=== PATIENT | male | born 1950 | race Caucasian/White ===

== ENCOUNTER 2020-06-05 15:03 | Outpatient (RCR) | payer MEDICARE, OTHER, SELFPAY ==
[2020-06-05] MEDS: COVID-19 VACC, MRNA(PFIZER)/PF 30 MCG/0.3 ML SYRINGE IM (13:43)
[2020-06-26] MEDS: COVID-19 VACC, MRNA(PFIZER)/PF 30 MCG/0.3 ML SYRINGE IM (13:36)
== END 2020-09-02 23:59 ==
LOC: IMMUN 15:03
PROVIDERS: PCP Internal Medicine; Visit Provider Family Medicine
DX: Z23 Encounter for immunization (principal)
CPT/HCPCS: 0001A; 0002A; 91300

== ENCOUNTER 2020-10-10 09:56 | Day surgery (SDC) | payer MEDICARE, OTHER, SELFPAY ==
--- NOTE | 2020-10-06 08:30 | EKG12_ITS ---
Test Reason : PREOP Blood Pressure : / mmHG Vent. Rate : 075 BPM Atrial Rate : 075 BPM P-R Int : 156 ms QRS Dur : 104 ms QT Int : 410 ms P-R-T Axes : 037 -05 -01 degrees QTc Int : 457 ms Normal sinus rhythm Normal ECG Confirmed by NORAH VALENCIA, DALE ([id number]), editor index ADRIA VDIES ([id number]) on 10/07/2020 7:39:39 AM Referred By: Kvng Langford Confirmed By:DALE ALMAZAN MD
[2020-10-06 10:11] LABS: Anion Gap 7 (5-15); BUN 15 mg/dL (7-18); BUN/Creat Ratio 17.8 RATIO (10-20); Calcium,Total 9.4 mg/dL (8.5-10.1); Chloride 99 mmol/L (98-107); Creatinine, Serum 0.84 mg/dL (0.70-1.30); EST Glomerular Filtration Rate 96 mL/min (>60); Est Glom Filt Rate - Afr Amer 116 mL/min (>60); Glucose 144 mg/dL (74-106); Potassium 4.1 mmol/L (3.5-5.1); Sodium Level 135 mmol/L (136-145)
[2020-10-06 10:20] LABS: Hemoglobin A1c 5.9 % (3.8-5.6)
[2020-10-10] VITALS (7 sets, daily range): BP systolic 129–155; BP diastolic 70–91; PULSE 66–70; RESP 16; TEMP 36.1–37.1; O2SAT 91–97; BMI 30.1
[2020-10-10 10:55] LABS: Bedside Glucose 135 mg/dL (70-110)
[2020-10-10] MEDS: Lactated Ringers 1,000 ML 100 ML IV (10:55)
[2020-10-10] MEDS: Cefazolin 2 GM in 0.9% Normal Saline 100 ML IV (11:59)
--- NOTE | 2020-10-10 13:09 | OP.PCM_ITS ---
Problems Associated Problem List Diagnoses (1) Umbilical hernia without obstruction and without gangrene: (2) Right inguinal hernia: Report of Operation Date of Procedure: 10/10/20 Pre-Operative Diagnosis: 1. Right inguinal hernia 2. Umbilical hernia Post-Operative Diagnosis: Same Surgery/Procedure Performed:: 1. Open repair of right inguinal hernia 2. Umbilical hernia repair with mesh Surgeon: Kvng Langford Type of Anesthesia: General Anesthesiologist: Darwin Cooper Drains: none Estimated Blood Loss (mL): < 25 cc Description of Procedure: Patient was brought into the operating room. Placed in the supine position. Under excellent general endotracheal ovation the abdomen and right inguinal area was sterilely prepped and draped in the usual fashion. Local was injected in the right inguinal area incision was made dissection was carried down to the superficial inferior epigastric vessels which were tied off with 0 Vicryl ties. I dissected down to the external bleak fascia I opened the external bleak fascia identified the ilioinguinal nerve placed it laterally dissected down and got around the cord and vessel structures and secured it with a Aziza drain. Patient had a large right inguinal hernia which I detached from the cord and vessel structures as well as a large cord lipoma I placed those back into the preperitoneal space. I placed an extra- large mesh plug into the internal ring. I sutured it circumferentially with interrupted #1 Prolene. After this I placed an onlay piece of mesh 2 sutures of 0 Prolene into the pubic tubercle I ran the one up the ileal inguinal ligament and the other on the transversalis fascia. The keyhole I brought the cord and vessel structures through I then secured the 2 Prolene sutures superior to this. I had enough room to allow my fifth finger in so the blood supply would not be strangulated. I inspected the nerve as it was going out it was tattered and frayed I thought the best thing to do was just transect the ilioinguinal nerve and I did this time get off with the 0 Vicryl tie. I brought the extra oblique fascia back together with 2-0 Vicryl. I injected local Bryan's was brought together with 2-0 Vicryl deep dermals of 3-0 Vicryl in a running 4-0 Monocryl. Curvilinear incision was made under the umbilicus after local was injected. I dissected down detach the skin from the umbilical defect placed the umbilical defect back into its preperitoneal space circumferentially cleared this off. I placed a small Ventralex patch into this area. I secured the mesh with interrupted #1 Nurolon's. I injected local. Wound was then brought together with deep dermal stitches of 3-0 Vicryl in a running 4 Monocryl. Steri-Strips were applied sterile dressings were applied and the patient tolerated the procedure well. Steri-Strips were applied sterile dressings were applied and the inguinal area and the patient tolerated this well. Admit VTE Documentation VTE Present on Admission: No VTE Mechan Device Prophylaxis: SCD's VTE Pharm Prophylaxis ordered?: No Reason prophylaxis not ordered:: Treatment Not Indicated
--- NOTE | 2020-10-10 13:09 | PCM.HP.BLA ---
History and Physical Date of Admission: 10/10/20 HISTORY AND PHYSICAL ? Mikaela Yang 1950 ? ? REFERRING PHYSICIAN: Davion Lanier MD ? CHIEF COMPLAINT: Consult (Hernia ) ? HPI: Mikaela is a 69 year old male with a complaint of a bulge and discomfort in his right inguinal region and umbilical region. The patient notes discomfort in this area with lifting, straining and coughing. The symptoms have increased, over the past few months. ? The patient notes no symptoms of bowel obstruction and denies nausea or vomiting. The patient was seen by his primary care physician who felt the patient has a hernia. Mikaela was referred for evaluation and treatment. ? The patient is being seen by me today at the request of Dr. Davion Lanier MD for my opinion and advice regarding Inguinal hernia of right side with obstruction and without gangrene Umbilical hernia without obstruction and without gangrene (primary encounter diagnosis). ? ? PAST MEDICAL HISTORY PAST MEDICAL HISTORY Diagnosis Date ? Adenomatous colon polyp 12/04/2014 ? Chronic pain of left ankle 01/17/2017 ? Depression 11/28/2014 ? Diabetes mellitus type 2, controlled, without complications (HCC) 04/04/2015 ? Essential hypertension 08/11/2005 ? Generalized anxiety disorder 10/28/2014 ? Impaired fasting glucose 03/04/2010 ? Office hypertension (white coat syndrome) 02/10/2016 ? Panic disorder without agoraphobia 05/05/2012 ? PURE HYPERCHOLESTEROLEM 06/20/2007 ? Rhinitis, allergic 08/29/2009 ? Unspecified essential hypertension ? ? ? PAST SURGICAL HISTORY PAST SURGICAL HISTORY Procedure Laterality Date ? ARTHRODESIS; TRIPLE Left 01/29/2019 ? Left foot, Post. tibial tendon repair. Achilles tendon lengthening. Calcaneal bone graft. ? COLONOSCOP W/ OR W/O [facility] SPEC ? 12/04/2014 ? Colonoscopy ? COLONOSCOP W/ OR W/O [facility] SPEC ? 03/13/2018 ? repeat 5 years ? PAST SURGICAL HISTORY OF ? ? ? wisdom teeth ? VASECTOMY ? CURRENT MEDICATIONS Current Outpatient Medications Medication Sig ? ALPRAZolam (XANAX) 1 mg tablet Take 1 tablet by mouth at bedtime as needed for anxiety for up to 180 days. ? escitalopram oxalate (LEXAPRO) 20 mg tablet Take 1 tablet by mouth once daily. ? amLODIPine (NORVASC) 5 mg tablet Take 1 tablet by mouth once daily. ? atenolol (TENORMIN) 50 mg tablet Take 1 tablet by mouth twice daily. ? atorvastatin (LIPITOR) 20 mg tablet Take 1 tablet by mouth daily at bedtime. For cholesterol. ? olopatadine (PATANOL) 0.1 % ophthalmic solution 1 Drop. Apply one(1) drop in both eyes twice a day as needed for allergies. ? lisinopril-hydrochlorothiazide (PRINZIDE,ZESTORETIC) 20-12.5 mg per tablet Take 2 tablets by mouth once daily. ? metFORMIN ER (GLUCOPHAGE XR) 500 mg 24 hr tablet Take 1 tablet by mouth daily with breakfast. For diabetes. ? cetirizine (ZYRTEC) 10 mg tablet Take 1 tablet by mouth once daily. ? No current facility-administered medications for this visit. ? ? ALLERGIES: Contrast Dye and Seasonal Allergies [Other] ? PERSONAL HISTORY: SOCIAL HISTORY Social History ? Tobacco Use ? Smoking status: Former Smoker ? ? Packs/day: 1.00 ? ? Years: 12.00 ? ? Pack years: 12.00 ? ? Types: Cigarettes ? ? Quit date: 03/28/1982 ? ? Years since quittin.5 ? Smokeless tobacco: Current User ? ? Types: Snuff, Chew ? Tobacco comment: 1 ppd, Quit cigarrettes 1982. Snuff since then, 1 can every 2 days. Vaping Use ? Vaping Use: Never used Substance Use Topics ? Alcohol use: Yes ? ? Alcohol/week: 30.0 standard drinks ? ? Types: 12 Cans of Beer (12oz) per week ? ? Comment: 2-3 beers per day 12 oz. ? Drug use: No ? FAMILY HISTORY: FAMILY HISTORY FAMILY HISTORY Problem Relation Age of Onset ? Heart Mother ? ? congenital HD, age 91 ? Arthritis Father ? ? rheumatoid ? Coronary Artery Disease Father ? ? age 69 ? Hypertension Sister ? ? Colon Cancer Other ? ? nephew ? ? REVIEW OF SYMPTOMS: The review of systems data was entered by the nurse and reviewed by me ? Nursing Notes: Leeroy Briones 09/22/2020 11:21 AM Signed REVIEW OF SYSTEMS: General: The patient NOTES fatigue, denies weight loss, denies weight gain, denies feeling hot, and denies feelings of cold. Eyes: The patient denies glaucoma, denies eye injury/surgery, wears glasses or contacts. Ear/Nose/Throat: The patient NOTES allergies, NOTES hayfever, denies ear infections, and denies bloody noses. Cardiovascular: The patient denies chest pain, denies heart disease, NOTES high blood pressure,denies cardiac stent, denies prior heart attack, denies irregular heart beat, NOTES high cholesterol, NOTES poor circulation, denies heart failure, other cardiac issues, denies claudication, denies cold feet, denies peripheral arterial stent. Respiratory: The patient denies tuberculosis, denies pneumonia, denies frequent cough, denies pulmonary embolism, denies shortness of breath, and denies coughing up blood. Gastrointestinal: The patient denies difficulty swallowing, denies acid reflux, denies ulcers, denies vomiting, denies jaundice/hepatitis, denies gallbladder problems, denies black or tarry stools, denies hemorrhoids, denies bleeding from rectum, denies diverticulitis, denies constipation, denies diarrhea, denies loss of stool control, and NOTES hernias. Kidney/Bladder: The patient denies kidney stones, denies urine infections, and denies bloody urine. Skin: The patient denies a history of skin cancer, denies bleeding/changing moles, and denies a history of skin rash. Neurologic: The patient denies a history of epilepsy/convulsions, denies headaches, denies head/spinal injuries, and denies stroke/TIA. Psychiatric: The patient denies psychiatric medications, NOTES depression, and denies voices, denies substance abuse. Endocrine: The patient denies thyroid disorders, NOTES diabetes, and denies hormonal problems. Hematologic: The patient NOTES a history of bruising, denies bleeding, and denies anemia, denies blood clots. Infections: The patient denies a history of measles and mumps, denies rheumatic fever, and denies sexually transmitted diseases. Musculoskeletal: The patient denies back pain/injury, denies back problems, denies sciatica, NOTES knee/foot trouble, NOTES arthritis, or denies gout. ? ? When was patient's last Mammogram screening? N/A ? Last Colonoscopy: 03-13-2018 ? Leeroy Briones ? PHYSICAL EXAMINATION: ? General: The patient is 69 year old male, well nourished, well hydrated in no acute distress. The patient is oriented to time, place, and person. ? VITALS: Blood pressure 134/72, pulse 86, temperature 37.1 ?C (98.8 ?F), height 184.2 cm (6' 0.5), weight 103.1 kg (227 lb 3.2 oz), SpO2 100 %. Body mass index is 30.39 kg/m?. ? HEENT: Normal cephalic, ataumatic, pupils are equally round, sclera are anicteric, mucous membranes are moist, oropharynx is clear. Neck has no masses, asymmetry or lymphadenopathy. Thyroid is unremarkable. ? Respiratory: Clear to auscultation and percussion. Normal respiratory excursion and pattern. ? Cardiac: Examination is regular rate and rhythm. ? Abdominal exam: Soft, nontender, with no palpable masses. No hepatosplenomegaly. A large, reducible right inguinal hernia, no left inguinal or umbilical hernias are noted and small umbilical hernia ? Rectal exam: exam deferred ? Extremities: no clubbing, cyanosis or edema. No adenopathy. ? Other: ? ? LABORATORY VALUES: As Noted ? RADIOLOGIC STUDIES: As Noted ? Assessment IMPRESSION: right inguinal hernia, umbilical hernia ? PLAN: My plan is to perform a open right inguinal hernia repair with mesh as well as umbilical hernia repair with mesh. The planned surgical procedure was discussed extensively with the patient. The risks, benefits, anticipated outcomes and possible complications were mentioned. Mikaela undersands that all hernia repair surgery has a chance of recurrence and/or chronic post operative pain. My staff has also explained the procedure in understandable terms and the patient was given the option to take printed material concerning the planned procedure. The patient had the opportunity to ask questions concerning the planned procedure. The patient freely consents to the planned procedure. ? My findings have been communicated to Dr. Davion Lanier MD via shared medical record. This note will be forwarded to Dr. Davion Lanier MD. ? Diagnoses: (K42.9) Umbilical hernia without obstruction and without gangrene (primary encounter diagnosis) (K40.30) Inguinal hernia of right side with obstruction and without gangrene ? Anticipated CPT Code: open right inguinal hernia repair with mesh - 05158-794 umbilical hernia repair - with mesh, no add on - 77044-700 ? Anticipated Anesthetic: General ? Patient weight: Blood pressure 134/72, pulse 86, temperature 37.1 ?C (98.8 ?F), height 184.2 cm (6' 0.5), weight 103.1 kg (227 lb 3.2 oz), SpO2 100 %. BMI: Body mass index is 30.39 kg/m?. ? Planned antibiotic: Ancef 2gm IVPB messenger floorperson to OR ? SCDs needed - Yes Return to Clinic: The patient is instructed to follow-up with me 1 week post operatively. ? COVID (Procedure Consent) Procedure Criteria ? Procedure Criteria: Yes Elective The surgeon/proceduralist and patient have discussed in detail the risk of exposure to and/or potential harm posed by the COVID-19 virus with having a surgery/procedure at this time versus the risk of? delaying the surgery/procedure. It is not possible to know either the risk of delaying the surgery or procedure or chance of getting an infection with perfect accuracy, but a joint decision was made between the patient and the surgeon/proceduralist ?to proceed at this time with the scheduled surgery/procedure as indicated on the consent form. ? ? Kvng Langford III, MD I have re-examined the patient. There are no clinical changes since date of exam.
--- NOTE | 2020-10-10 13:16 | DCINST_ITS ---
Discharge Instructions Procedure Hernia Diet Discharge Diet: Light diet - advance as tolerated Activity Discharge Activity: Return to Normal Activity, May Drive (when you are no longer taking narcotic pain medications.) and May Shower (with the bandage in place 1-2 days after surgery.) Lifting Restrictions: 20 pounds for 8 weeks. Additional Activity Instructions:: Climbing stairs is fine, walking is e ncouraged. Sitting in bed may be uncomfortable. Sitting up using your lateral muscles (sitting up sideways) is usually more comfortable. Do not drive, work heavy equipment of sign legal documents for 24 hours. If your hernia repair was an ingunial repair, you may have scrotal swelling, an ice pack and/or athletic support can provide more comfort. Pain medications may cause nausea, you should typically eat light foods as you take your pain medications. Pain medications may also cause constipation. If you have difficulty with this, discuss with your doctor. Dressing / Incision Call your doctor if your incision/area has: Continuous Slow Oozing, Sudden Increased Bleeding, Increased Pain/ Swelling, Increased Redness and Foul Smelling Discharge Call your doctor if you observe: Fever of 101 or Higher Suture Line Care: Avoid Pulling/Pushing and Avoid Pinching/Bending Additional Dressing/Incision Instructions:: Leave the operative bandage on for 2-3 days. When you remove the bandage, leave the steri-strips on place until your follow up appointment or they fall off. Follow Up Care Please Follow Up With: Mouna Stanley PA-C When: Call office to schedule an appointment to be seen in 7 days. Test Results: Test results from this visit will be discussed in further detail at your follow-up appointment, if applicable. Discharge Plan Admission Attending Provider: Kvng Langford Primary Care Provider: Davion Lanier Discharge Orders/Prescriptions Prescriptions: New oxycodone-acetaminophen [Percocet] 5-325 mg tablet 1 tab PO Q6H PRN (Reason: pain) 5 Days Qty: 30 RF: 0 Continued metformin 500 mg Tablet 500 mg PO DAILY RF: 0 atorvastatin [Lipitor] 20 mg Tablet 20 mg PO QHS RF: 0 lisinopril-hydrochlorothiazide 20-12.5 mg Tablet 2 tab PO DAILY MDD bp RF: 0 alprazolam [Xanax] 1 mg Tablet 1 mg PO QHS PRN PRN (Reason: Anxiety) RF: 0 amlodipine [Norvasc] 5 mg Tablet 5 mg PO LUNCH RF: 0 atenolol [Tenormin] 50 mg Tablet 50 mg PO BID RF: 0 escitalopram oxalate [Lexapro] 10 mg Tablet 10 mg PO LUNCH RF: 0 Referrals / Follow Up: Davion Lanier MD [Primary Care Provider] - Disposition Discharge Orders: Discharge Patient (Routine); Ordered 10/10/20 Ordered By: Dr. Kvng Langford
[2020-10-10] MEDS: Bupivacaine Mpf 0.5% 30 ML VIAL (13:34)
[2020-10-10 14:21] LABS: Bedside Glucose 115 mg/dL (70-110)
== END 2020-10-10 15:18 ==
LOC: SDC 09:56 → AC 09:57
PROVIDERS: Anesthesiology; PCP Internal Medicine; Referring Provider Surgery; Visit Provider Surgery
PROC: (CPT 49505; principal; 2020-10-10 11:45)
DX: K40.30 Unilateral inguinal hernia, with obstruction, without gangrene, not specified as recurrent (principal); K42.9 Umbilical hernia without obstruction or gangrene; I10 Essential (primary) hypertension; E78.00 Pure hypercholesterolemia, unspecified; F32.9 Major depressive disorder, single episode, unspecified; F41.1 Generalized anxiety disorder; F41.0 Panic disorder [episodic paroxysmal anxiety]; Z79.899 Other long term (current) drug therapy; Z79.84 Long term (current) use of oral hypoglycemic drugs; R73.01 Impaired fasting glucose; Z87.891 Personal history of nicotine dependence
CPT/HCPCS: 49505; 49585; 36415; 80048; 82962; 83036; 93005; J7120; C1781; J2405

== ENCOUNTER 2021-10-04 21:29 | Inpatient (IN) | payer MEDICARE, OTHER, SELFPAY ==
[2021-10-04 21:30] VITALS: BP 123/54; PULSE 98; RESP 18; TEMP 37.4; O2SAT 99; BMI 30.2
--- NOTE | 2021-10-04 22:07 | EKG12_ITS ---
Test Reason : Blood Pressure : / mmHG Vent. Rate : 089 BPM Atrial Rate : 089 BPM P-R Int : 150 ms QRS Dur : 102 ms QT Int : 380 ms P-R-T Axes : 031 004 -25 degrees QTc Int : 462 ms Normal sinus rhythm Inferior infarct , age undetermined Abnormal ECG Confirmed by NORAH VALENCIA, DALE ([id number]), index editor ADRIA VIDES ([id number]) on 10/06/2021 8:43:31 AM Referred By: Kenn Confirmed By:DALE ALMAZAN MD
--- NOTE | 2021-10-04 22:20 | EX.ED.DYSGE1 ---
HPI History of Present Illness Chief Complaint: Wound Informant: patient and spouse/S.O. Narrative Narrative: Presents for evaluation of worsening cellulitis left upper extremity. Noted initial blister after working outside, there is other lesions, symptoms progressing. Reported there was milky discharge initially. He was on a 5-day antibiotic course initially 3 days ago started on Bactrim for 10 days. Symptoms not improving. Today noted fever fatigue and aches. No cough. No urinary symptoms. He is a diabetic on metformin. Reported concerns of a spider bite however no visualized spiders. States was referred to surgery Dr. Alston to be call tomorrow. Patient had a fever 100.4 today. Prior similar symptoms: No PFSH PFSH Medical History Alcohol use Anxiety Arthritis Diabetes Easy bruising Former smoker High cholesterol History of stress test Hypertension Wears glasses Home Medications alprazolam 1 mg tablet (Xanax) 1 mg PO QHS PRN PRN Anxiety 10/03/20 [History Last Taken 10/03/21] amlodipine 5 mg tablet (Norvasc) 5 mg PO LUNCH bp 10/03/20 [History Last Taken 10/05/21] atenolol 50 mg tablet (Tenormin) 50 mg PO BID bp 10/03/20 [History Last Taken 10/04/21] atorvastatin 20 mg tablet (Lipitor) 20 mg PO QHS cholesterol 10/03/20 [History Last Taken 10/03/21] escitalopram oxalate 10 mg tablet (Lexapro) 30 mg PO LUNCH mood 10/03/20 [History Last Taken 10/04/21] lisinopril 20 mg-hydrochlorothiazide 12.5 mg tablet 2 tab PO DAILY bp 10/03/20 [History Last Taken 10/04/21] metformin 500 mg tablet 500 mg PO DAILY dm 10/03/20 [History Last Taken 10/04/21] cetirizine 10 mg tablet 10 mg PO DAILY allergies 10/04/21 [History Last Taken 10/04/21] sulfamethoxazole 800 mg-trimethoprim 160 mg tablet 1 tab PO DAILY cellulitis 10/04/21 [History Last Taken 10/04/21] Allergy/AdvReac Type Severity Reaction Status Date / Time Iodinated Contrast Media Allergy Hives Verified 10/04/21 21:33 Family History Other Diabetes Heart disease Hypertension Surgical History History of ankle surgery History of colonoscopy History of wisdom tooth extraction Social History Smoking Status: Former smoker ROS ROS ED Constitutional Constitutional ED: Reports fever(s); Denies chills or sweats Eyes Eyes: Denies change in vision ENT ENT ED: Denies dysphagia or sore throat Cardiovascular Cardiovascular: Denies chest pain, leg edema, palpitations or racing heartbeat Respiratory/Chest Respiratory/Chest: Denies cough, dyspnea or dyspnea on exertion Gastrointestinal Gastrointestinal: Denies abdominal pain, diarrhea, nausea or vomiting Genitourinary Genitourinary ED: Denies dysuria, hematuria or urinary frequency Musculoskeletal Musculoskeletal: Denies back pain, extremity pain or neck pain Integumentary Reports rash and wounds Neurologic Neurologic: Denies headache(s), paresthesias or weakness EXAM Physical Exam Const Vital Signs: 10/04/21 21:30 10/04/21 22:24 10/04/21 22:45 Temperature 99.4 F H 99.1 F Temperature Source Oral Temporal Pulse Rate 98 80 Respiratory Rate 18 18 Blood Pressure 123/54 H 101/63 Blood Pressure Mean 77 75 Pulse Ox 99 94 Oxygen Delivery Method Room Air Room Air Room Air Positive well nourished and well developed General Appearance ED: well developed and NAD HEENT Reports moist mucous membranes normocephalic and atraumatic Eyes PERRL, EOMs intact bilaterally and conjunctivae normal General Eye ED: Yes normal appearance of both eyes Neck no lymphadenopathy and supple General: Negative for tenderness Chest Wall Chest: Negative for tenderness Resp normal respiratory effort and normal air movement Effort and Inspection: symmetric chest movement; Negative for respiratory distress Cardio regular rate, regular rhythm and no murmurs Peripheral Pulses: pulses 2+ throughout GI normal to inspection, nondistended, normoactive bowel sounds and non-tender Palpation: Negative for guarding or rebound tenderness present Back/Spine no CVA tenderness and no thoracic nor lumbar tenderness Extremity normal to inspection General Extremety ED: Negative for edema or tenderness General Extremity: Negative for edema Neuro oriented x3 and no sensory deficits noted Sensorium / Orientation: awake and alert Skin Skin Narrative: Left upper extremity: There is a 2 cm circular lesion with hard scabbing in the middle, there is no fluctuance or induration. There is surrounding erythema to the shoulder region extending to the trapezius. There is no crepitus. No active drainage. Warm to palpation. MDM MDM MDM Narrative Medical decision making narrative: PatientPatient initial pulse 98 temp 99.4. Left shoulder region cellulitis treatment. Reported temp 100.4 today. Sepsis labs were obtained. X-ray left shoulder 2 views reviewed by myself and read by radiology shows no acute process. Area was outlined by myself. Labs White count 5.5. Lactic acid 2.5. Creatinine 1.23 up from 0.84. He has no vomiting diarrhea however is currently on Bactrim. Hemoglobin 9.1 no old for comparison he is told he had iron deficiency in the past. Sodium 131. Patient was treated with Zosyn and vancomycin. Patient failing outpatient therapy with no improvement of symptoms. He is diabetic. Discussed with hospitalist, Dr. Barr for admission. COVID testing also obtained negative. 03/31 SIRS with HR. Lab Data Attestation: I reviewed the patient's lab results. Labs: Laboratory Results - last 24 hr 10/04/21 10/04/21 10/04/21 22:15 22:15 22:15 WBC 5.5 RBC 2.70 L Hgb 9.1 L Hct 27.0 L MCV 100.0 H MCH 33.7 H MCHC 33.7 RDW Std Deviation 61.4 H RDW Coeff of Ricardo 16.8 H Plt Count 160 MPV 9.4 Immature Gran % (Auto) 0.200 Neut % (Auto) 28.4 L Lymph % (Auto) 59.7 H Keith % (Auto) 9.7 Eos % (Auto) 1.3 Baso % (Auto) 0.7 Absolute Neuts (auto) 1.6 L Absolute Lymphs (auto) 3.27 Nucleated RBC % 0 Differential Comment SCANNED PT 13.9 INR 1.1 APTT 28.2 Sodium 131 L Potassium 4.1 Chloride 97 L Carbon Dioxide 22.0 Anion Gap 12 BUN 23 H Creatinine 1.23 Estim Creat Clear Calc 59.58 Est GFR (MDRD) Af Amer 74 Est GFR (MDRD) Non-Af 62 BUN/Creatinine Ratio 18.7 Glucose 124 H Lactic Acid Calcium 8.8 Total Bilirubin 0.60 AST 21 ALT 23 Alkaline Phosphatase 83 Total Protein 6.5 Albumin 3.5 Globulin 3.0 Albumin/Globulin Ratio 1.2 10/04/21 22:15 WBC RBC Hgb Hct MCV MCH MCHC RDW Std Deviation RDW Coeff of Ricardo Plt Count MPV Immature Gran % (Auto) Neut % (Auto) Lymph % (Auto) Keith % (Auto) Eos % (Auto) Baso % (Auto) Absolute Neuts (auto) Absolute Lymphs (auto) Nucleated RBC % Differential Comment PT INR APTT Sodium Potassium Chloride Carbon Dioxide Anion Gap BUN Creatinine Estim Creat Clear Calc Est GFR (MDRD) Af Amer Est GFR (MDRD) Non-Af BUN/Creatinine Ratio Glucose Lactic Acid 2.5 H* Calcium Total Bilirubin AST ALT Alkaline Phosphatase Total Protein Albumin Globulin Albumin/Globulin Ratio Radiography Diagnostic Testing: Clinical Impression(s) from Imaging Studies Shoulder X-Ray 10/04/21 23:06 IMPRESSION: No acute findings. Electronically Signed: Khanh Cardenas DO at 23:24 EDT , EKG Initial EKG: Attestation: I personally reviewed and interpreted this EKG as follows: Comments: Sinus rate of 89, no ST changes, T wave inversion in leads III and aVF. Discharge Plan Dx/Rx/DC Orders Clinical Impression: Cellulitis of left shoulder, Diabetes, Acidosis, lactic, Anemia, Acute hyponatremia Disposition Disposition: Acute Care Hospital [facility] Discharge Date/Time: 10/05/21 00:05
[2021-10-04 22:29] LABS: Absolute Lymphocyte Count 3.27 X10^3/uL (0.83-4.51); Absolute Neutrophil Count 1.6 X10^3/uL (2.0-7.7); Basophil# 0.04 X10^3/uL; Basophil% 0.7 % (0-1); Eosinophil# 0.07 X10^3/uL; Eosinophils% 1.3 % (0-5); Hemoglobin 9.1 g/dL (13.0-16.5); Lymphocyte # 3.27 X10^3/ul (0.83-4.51); Lymphocyte % 59.7 % (19-41); Mean Corp Hgb Conc 33.7 g/dL (32-36); Mean Corpuscular Hgb 33.7 pg (27.0-32.0); Mean Platelet Vol. 9.4 fl (6.2-12.0); Monocyte# 0.53 X10^3/uL; Monocyte% 9.7 % (0-10); NRBC Flagged by Analyzer 0 % (0-5); Neutrophil # 1.56 X10^3/uL (2.7-7.7); Neutrophil % 28.4 % (47-70); POSITIVE MORPHOLOGY YES; Platelet Count 160 K/mm3 (150-450); RBC Distribution Width CV 16.8 % (11.6-14.6); RBC Distribution Width SD 61.4 fl (35.1-43.9); White Blood Count 5.5 K/mm3 (4.4-11.0)
[2021-10-04 22:35] LABS: Differential Indicated SCAN CRITERIA MET
[2021-10-04 22:36] LABS: International Normalized Ratio 1.1; Partial Thromboplast Time 28.2 Seconds (24.1-36.2); Prothrombin Time (Protime)PT. 13.9 SECONDS (11.7-14.9)
[2021-10-04 22:42] LABS: ALB/GLOB Ratio 1.2 RATIO (0.9-2.4); AST(SGOT) 21 U/L (15-37); Alanine Aminotransfer ALT/SGPT 23 U/L (16-61); Albumin, Serum 3.5 g/dL (3.2-5.0); Alkaline Phosphatase 83 U/L (45-117); Anion Gap 12 (5-15); BUN 23 mg/dL (7-18); BUN/Creat Ratio 18.7 RATIO (10-20); Calcium,Total 8.8 mg/dL (8.5-10.1); Chloride 97 mmol/L (98-107); Creatinine, Serum 1.23 mg/dL (0.70-1.30); EST Glomerular Filtration Rate 62 mL/min (>60); Est Glom Filt Rate - Afr Amer 74 mL/min (>60); Estimated Creatinine Clearance 59.58 ml/min; Glucose 124 mg/dL (74-106); Potassium 4.1 mmol/L (3.5-5.1); Protein, Total 6.5 g/dL (6.4-8.2); Sodium Level 131 mmol/L (136-145)
[2021-10-04] MEDS: 0.9% Normal Saline 1,000 ML 150 ML IV (22:44)
[2021-10-04 22:45] VITALS: BP 101/63; PULSE 80; RESP 18; TEMP 37.3; O2SAT 94
[2021-10-04 22:55] LABS: Lactic Acid 2.5 mmol/L (0.4-1.9)
--- NOTE | 2021-10-04 23:06 | RAD_ITS ---
STUDY: X-RAY - LEFT SHOULDER REASON FOR EXAM: Male, 71 years old. infection TECHNIQUE: 4 view(s) of the shoulder. COMPARISON: None. FINDINGS: There is mild degenerative arthrosis of the glenohumeral articulation. There is degenerative arthrosis of the acromioclavicular joint without inferior osseous spur formation. Normal acromion. Normal humeral head and visualized proximal humerus. The soft tissue structures are unremarkable. Normal visualized pulmonary apex. RAD/Shoulder min 2 Views IMPRESSION: No acute findings. Electronically Signed: Khanh Cardenas DO at 23:24 EDT ,
[2021-10-04 23:19] LABS: Differential Comment SCANNED
[2021-10-04 23:43] VITALS: BP 133/98; PULSE 84; RESP 18; TEMP 36.6
--- NOTE | 2021-10-04 23:43 | HP.PCM.HOS_ITS ---
[facility] - General General Date of Admission: 10/04/21 Date of Service: 10/04/21 Chief Complaint: Redness of left arm HPI Narrative CHARLOTTE WHITT, is a 71 M with a significant history of arthritis; depression/anxiety on Lexapro; and diabetes mellitus who presents to the emergency department with redness of his left medial forearm. Reportedly his symptoms started close to 3 weeks ago. His symptoms started with a big blister and then multiple blisters around the medial side of his forearm. The blister oozed out yellowish exudates. Later on he developed redness around the medial side of his left arm. He reports swelling and pain around the area. Patient completed a 5-day course of some antibiotics that he cannot remember the name. Three days before presentation patient was started on Bactrim. He reports fever and chills. On day of presentation his home temperature was 100.4 Fahrenheit. He reports joints pain. He reports fatigue and anorexia. [facility] Medical History Alcohol use Anxiety Arthritis Diabetes Easy bruising Former smoker High cholesterol History of stress test Hypertension Wears glasses Home Medications alprazolam 1 mg tablet (Xanax) 1 mg PO QHS PRN PRN Anxiety 10/03/20 [History Last Taken Unknown] amlodipine 5 mg tablet (Norvasc) 5 mg PO LUNCH bp 10/03/20 [History Last Taken 10/10/20] atenolol 50 mg tablet (Tenormin) 50 mg PO BID bp 10/03/20 [History Last Taken 10/10/20] atorvastatin 20 mg tablet (Lipitor) 20 mg PO QHS cholesterol 10/03/20 [History Last Taken Unknown] escitalopram oxalate 10 mg tablet (Lexapro) 30 mg PO LUNCH mood 10/03/20 [His tory Last Taken Unknown] lisinopril 20 mg-hydrochlorothiazide 12.5 mg tablet 2 tab PO DAILY bp 10/03/20 [History Last Taken Unknown] metformin 500 mg tablet 500 mg PO DAILY 10/03/20 [History Last Taken Unknown] cetirizine 10 mg tablet 10 mg PO DAILY 10/04/21 [History Last Taken Unknown] sulfamethoxazole 800 mg-trimethoprim 160 mg tablet 1 tab PO DAILY 10/04/21 [History Last Taken Unknown] Allergy/AdvReac Type Severity Reaction Status Date / Time Iodinated Contrast Media Allergy Hives Verified 10/04/21 21:33 Family History Other Diabetes Heart disease Hypertension Surgical History History of ankle surgery History of colonoscopy History of wisdom tooth extraction Social History Smoking Status: Former smoker ROS ROS Narrative Pertinent positives and pertinent negatives as noted in HPI. All other systems were reviewed and are negative. Vital Signs Vital Signs Vital Signs: 10/04/21 21:30 10/04/21 22:24 10/04/21 22:45 Temperature 99.4 F H 99.1 F Temperature Source Oral Temporal Pulse Rate 98 80 Respiratory Rate 18 18 Blood Pressure 123/54 H 101/63 Blood Pressure Mean 77 75 Pulse Ox 99 94 Oxygen Delivery Method Room Air Room Air Room Air Weight Weight: 101.151 kg Body Mass Index (BMI) 30.2 Physical Exam Narrative Physical exam: General: Well-nourished, well-developed. Head: Normocephalic, atraumatic, no tenderness Eyes: Vision is grossly intact. EOMI ENT, no trauma, moist mucous membranes, no rhinorrhea Neck: Nontender, full range of motion, no spinal tenderness, deformities, step- off CVS: Regular rate and rhythm. S1-S2 present. No murmur, gallop or rub. Respiratory : clear to auscultation bilaterally, chest wall nontender, no wheezing Abdomen: Soft, nontender, nondistended, normal bowel sounds, no masses : Deferred Back: Nontender, no CVA tenderness, no midline spinal tenderness, deformities, step-offs Extremities: Nontender full range of motion, no trauma Skin: Scabbed area at medial side of left. Mild erythema; swelling and increased warmth at medial side of left. Right arm with no erythema or swelling. Neuro: Alert, oriented, cranial nerves II through XII grossly intact. Psychiatry: Normal mood. Normal affect. Not depressed. Not anxious. Results Lab / Micro Data Result Diagrams: 10/04/21 22:15 10/04/21 22:15 Labs: Laboratory Results - last 24 hr 10/04/21 22:15: WBC 5.5, RBC 2.70 L, Hgb 9.1 L, Hct 27.0 L, MCV 100.0 H, MCH 33.7 H, MCHC 33.7, RDW Std Deviation 61.4 H, RDW Coeff of Ricardo 16.8 H, Plt Count 160, MPV 9.4, Immature Gran % (Auto) 0.200, Neut % (Auto) 28.4 L, Lymph % (Auto) 59.7 H, [place] % (Auto) 9.7, Eos % (Auto) 1.3, Baso % (Auto) 0.7, Absolute Neuts (auto) 1.6 L, Absolute Lymphs (auto) 3.27, Nucleated RBC % 0, Differential Comment SCANNED 10/04/21 22:15: PT 13.9, INR 1.1, APTT 28.2 10/04/21 22:15: Sodium 131 L, Potassium 4.1, Chloride 97 L, Carbon Dioxide 22.0, Anion Gap 12, BUN 23 H, Creatinine 1.23, Estim Creat Clear Calc 59.58, Est GFR (MDRD) Af Amer 74, Est GFR (MDRD) Non-Af 62, BUN/Creatinine Ratio 18.7, Glucose 124 H, Calcium 8.8, Total Bilirubin 0.60, AST 21, ALT 23, Alkaline Phosphatase 83, Total Protein 6.5, Albumin 3.5, Globulin 3.0, Albumin/Globulin Ratio 1.2 10/04/21 22:15: Lactic Acid 2.5 H* Micro: Microbiology 10/04/21 22:45 Nasal Secretion SARS-CoV-2 & FLU Antigen (Rapid) - Final Radiology Impression Shoulder X-Ray 10/04/21 23:06 IMPRESSION: No acute findings. Electronically Signed: Khanh Cardenas DO at 23:24 EDT , Assessment & Plan Assessment/Plan (1) Cellulitis: (2) Diabetes: (3) Hypertension: PLAN: Plan Cellulitis Review of labs showed white count of 5.5. Trend CBC Shoulder X-ray was visualized and independently interpreted. I agree with radiologist interpretation of no acute findings. qSOFA is 0 and patient does not have 2 SIRS criteria. Lactic acid is 2.5 likely from metformin use; or tissue hypoxia. Trend. Sepsis ruled out. Received vancomycin emergency department. While vancomycin was running patient felt he was to be getting better with it. Vancomycin continued. Due to concern for possible insect bite will add doxycycline. Anemia Hemoglobin on presentation was 9.1 Review of community records shows that on 06/15/2021 his hemoglobin was 12.8; and on 04/21/2021 hemoglobin was 13. Trend CBC. Iron panel ordered. Vitamin B12 and folic acid ordered. LDH and haptoglobin ordered. Occult stools ordered. Hypertension Blood pressure is not within goal Amlodipine; atenolol; and Lisinopril-HCTZ continued. Trend blood pressure and adjust blood pressure medications. Diabetes mellitus A1c on 06/15/2021 was 6.2. Blood glucose is stable Hold home metformin Monitor Accu-Cheks Correction scale insulin ordered. DVT prophylaxis Subcutaneous Lovenox ordered. Charges/Coding Visit Charges Inpatient E&M: 58564 Init Hosp L3
[2021-10-05] VITALS (7 sets, daily range): BP systolic 107–127; BP diastolic 53–67; PULSE 78–94; RESP 16–18; TEMP 37–38; O2SAT 94–100; BMI 30.8
[2021-10-05] MEDS: ALPRAZolam 0.5 MG Tablet 1 MG PO ×2 (01:25→21:51)
--- NOTE | 2021-10-05 01:36 | PCM.RX.CS ---
Consult Pharmacy has been consulted to manage selected antiobiotic: Vancomycin Type of Consult: New start Suspected Infection: Skin/Soft tissue Prior Doses of Antibiotics Received/Current Regimen: Medications Vancomycin HCl 1,250 mg/ (Sodium Chloride) 275 mls @ 167 mls/hr IV Q12H ANGELI Discontinued Medications Vancomycin HCl 1,500 mg/ (Sodium Chloride) 530 mls @ 250 mls/hr IV X1 ONE Stop: 10/05/21 00:14 Last Admin: 10/04/21 22:44 Dose: 250 mls/hr Labs: Sodium 131 mmol/L (136-145) L 10/04/21 22:15 Potassium 4.1 mmol/L (3.5-5.1) 10/04/21 22:15 Chloride 97 mmol/L (98-107) L 10/04/21 22:15 Carbon Dioxide 22.0 mmol/L (21.0-32.0) 10/04/21 22:15 Anion Gap 12 (5-15) 10/04/21 22:15 BUN 23 mg/dL (7-18) H 10/04/21 22:15 Creatinine 1.23 mg/dL (0.70-1.30) 10/04/21 22:15 Est GFR (MDRD) Af Amer 74 mL/min (>60) 10/04/21 22:15 Est GFR (MDRD) Non-Af 62 mL/min (>60) 10/04/21 22:15 BUN/Creatinine Ratio 18.7 RATIO (10-20) 10/04/21 22:15 Glucose 124 mg/dL (74-106) H 10/04/21 22:15 Microbiology: Microbiology 10/04/21 22:45 Nasal Secretion SARS-CoV-2 & FLU Antigen (Rapid) - Final Weight used for dosin.1 kg Estimated Creatinine Clearance: 59.6 Goal Trough: 15-20 mcg/mL Pharmacy Plan for Drug Dosing: Pharmacy Service will continue to monitor and adjust dosing as required. Follow-Up Labs: Trough Vancomycin Labs to be done on [date and time ordered]: 10/06/21 @1000
[2021-10-05 02:22] LABS: Reflex Lactate? Y
[2021-10-05 03:47] LABS: Absolute Lymphocyte Count 3.42 X10^3/uL (0.83-4.51); Absolute Neutrophil Count 1.3 X10^3/uL (2.0-7.7); Basophil# 0.03 X10^3/uL; Basophil% 0.6 % (0-1); Eosinophil# 0.07 X10^3/uL; Eosinophils% 1.4 % (0-5); Hematocrit 27.1 % (40-54); Hemoglobin 9.3 g/dL (13.0-16.5); Lymphocyte # 3.42 X10^3/ul (0.83-4.51); Lymphocyte % 67.7 % (19-41); Mean Corp Hgb Conc 34.3 g/dL (32-36); Mean Corpuscular Hgb 34.4 pg (27.0-32.0); Mean Corpuscular Volume 100.4 fL (80-94); Mean Platelet Vol. 9.2 fl (6.2-12.0); Monocyte# 0.27 X10^3/uL; Monocyte% 5.3 % (0-10); NRBC Flagged by Analyzer 0 % (0-5); Neutrophil # 1.25 X10^3/uL (2.7-7.7); Neutrophil % 24.8 % (47-70); POSITIVE MORPHOLOGY YES; Platelet Count 148 K/mm3 (150-450); RBC Distribution Width CV 16.8 % (11.6-14.6); RET-HE 35.1 pg (30-35); Reticulocyte Count 2.57 % (0.5-1.5); White Blood Count 5.1 K/mm3 (4.4-11.0)
[2021-10-05 03:56] LABS: Lactic Acid 1.5 mmol/L (0.4-1.9)
[2021-10-05 03:57] LABS: Differential Indicated SCAN CRITERIA MET
[2021-10-05 04:07] LABS: Anion Gap 8 (5-15); BUN 21 mg/dL (7-18); BUN/Creat Ratio 19.1 RATIO (10-20); Calcium,Total 8.7 mg/dL (8.5-10.1); Chloride 97 mmol/L (98-107); EST Glomerular Filtration Rate 70 mL/min (>60); Est Glom Filt Rate - Afr Amer 85 mL/min (>60); Estimated Creatinine Clearance 66.63 ml/min; Ferritin 129 ng/mL (26-388); Glucose 117 mg/dL (74-106); Iron 91 ug/dL (65-175); Iron Binding Capacity,Total 353 ug/dL (250-450); PERCENT IRON SATURATION 25.8 % (15.0-55.0); Potassium 4.3 mmol/L (3.5-5.1); Sodium Level 130 mmol/L (136-145)
[2021-10-05 04:12] LABS: Differential Comment SCANNED
[2021-10-05 04:56] LABS: Bedside Glucose 107 mg/dL (74-106)
[2021-10-05] MEDS: Acetaminophen 325 MG Tablet 650 MG PO ×2 (04:57→21:51)
--- NOTE | 2021-10-05 07:28 | PCM.PN.HOSP ---
Subjective Subjective Patient is a 71-year-old male who presents with swelling involving the left bicep. Patient reported spider bite 3 weeks prior to his admission Objective Data Objective Data Vital Signs: Vital Signs Temp Pulse Resp BP Pulse Ox O2 Del Method 100.0 F H 94 18 110/66 94 Room Air 10/05/21 06:09 10/05/21 06:09 10/05/21 06:09 10/05/21 06:09 10/05/21 06:09 10/05/21 06:09 Oxygen Delivery Method Room Air Weight: 103.1 kg Body Mass Index (BMI) 30.8 Intake & Output: Intake and Output for Last 24 Hours 10/03/21 10/04/21 10/05/21 23:59 23:59 23:59 Intake Total 50 / 50 1690 / 1690 Balance 50 / 50 1690 / 1690 Lab / Micro Data Result Diagrams: 10/05/21 03:15 10/05/21 03:15 Labs: Laboratory Results - last 24 hr 10/04/21 22:15: WBC 5.5, RBC 2.70 L, Hgb 9.1 L, Hct 27.0 L, MCV 100.0 H, MCH 33.7 H, MCHC 33.7, RDW Std Deviation 61.4 H, RDW Coeff of Ricardo 16.8 H, Plt Count 160, MPV 9.4, Immature Gran % (Auto) 0.200, Neut % (Auto) 28.4 L, Lymph % (Auto) 59.7 H, [place] % (Auto) 9.7, Eos % (Auto) 1.3, Baso % (Auto) 0.7, Absolute Neuts (auto) 1.6 L, Absolute Lymphs (auto) 3.27, Nucleated RBC % 0, Differential Comment SCANNED 10/04/21 22:15: PT 13.9, INR 1.1, APTT 28.2 10/04/21 22:15: Sodium 131 L, Potassium 4.1, Chloride 97 L, Carbon Dioxide 22.0, Anion Gap 12, BUN 23 H, Creatinine 1.23, Estim Creat Clear Calc 59.58, Est GFR (MDRD) Af Amer 74, Est GFR (MDRD) Non-Af 62, BUN/Creatinine Ratio 18.7, Glucose 124 H, Calcium 8.8, Total Bilirubin 0.60, AST 21, ALT 23, Alkaline Phosphatase 83, Total Protein 6.5, Albumin 3.5, Globulin 3.0, Albumin/Globulin Ratio 1.2 10/04/21 22:15: Lactic Acid 2.5 H* 10/05/21 01:37: POC Glucose 107 H 10/05/21 03:15: WBC 5.1, RBC 2.70 L, Hgb 9.3 L, Hct 27.1 L, MCV 100.4 H, MCH 34.4 H, MCHC 34.3, RDW Std Deviation 62.0 H, RDW Coeff of Ricardo 16.8 H, Plt Count 148 L, MPV 9.2, Immature Gran % (Auto) 0.200, Neut % (Auto) 24.8 L, Lymph % (Auto) 67.7 H, [place] % (Auto) 5.3, Eos % (Auto) 1.4, Baso % (Auto) 0.6, Absolute Neuts (auto) 1.3 L, Absolute Lymphs (auto) 3.42, Nucleated RBC % 0, Differential Comment SCANNED, Retic Count 2.57 H, Immature Retic Fraction 17.50 H, Retic Hgb Equivalent 35.1 H 10/05/21 03:15: Sodium 130 L, Potassium 4.3, Chloride 97 L, Carbon Dioxide 25.0, Anion Gap 8, BUN 21 H, Creatinine 1.10, Estim Creat Clear Calc 66.63, Est GFR (MDRD) Af Amer 85, Est GFR (MDRD) Non-Af 70, BUN/Creatinine Ratio 19.1, Glucose 117 H, Calcium 8.7, Iron 91, TIBC 353, Iron Saturation 25.8, Ferritin 129, Folate 5.70 10/05/21 03:15: Lactic Acid 1.5 Micro: Microbiology 10/04/21 22:45 Nasal Secretion SARS-CoV-2 & FLU Antigen (Rapid) - Final Radiography Diagnostic Testing: Radiology Impression Shoulder X-Ray 10/04/21 23:06 IMPRESSION: No acute findings. Electronically Signed: Khanh Cardenas DO at 23:24 EDT , Physical Exam Narrative GENERAL: cooperative HEENT: Atraumatic; EYES; Anicteric, Normal Conjunctiva NECK; supple, normal thyroid, RESPIRATORY: Diminished to auscultation CARDIOVASCULAR: Regular S1 S2, GI: soft, normoactive bowel sounds, : No Renal angle tenderness; EXTREMITIES: Left arm swelling with a 1 cm scab on the medial aspect MUSCULOSKELETAL: no muscle wasting NEURO: Awake; no lateralizing signs. SKIN: Erythema involving the left arm PSYCH; Flat affect Assessment & Plan Assessment/Plan (1) Cellulitis: (2) Diabetes: (3) Hypertension: PLAN: Plan Patient is a 71-year-old male who presents with swelling involving the left bicep. Patient reported spider bite 3 weeks prior to his admission 1. Cellulitis involving the left upper extremity ? Patient has been admitted to regular nursing floor started on broad-spectrum antibiotic therapy (vancomycin and Rocephin) 2. Diabetes mellitus type II -patient's oral hypoglycemics held. Placed on long acting insulin, Accu-Cheks a.c. and at bedtime and covered with sliding scale insulin 3. Hypertension - Blood pressure controlled, home medications continued with dose adjustment as needed 4. Dyslipidemia -Patient is on statin therapy, continued at home dose 5. Anemia - Secondary to chronic disorder monitoring H&H and transfuse if patient becomes symptomatic or hemoglobin falls below 7 6. Class I obesity with BMI of 30.8 ? Weight loss advised 7. DVT prophylaxis ? Enoxaparin Charges/Coding Visit Charges Inpatient E&M: 26659 Subs Hosp L2
[2021-10-05 07:53] LABS: Vitamin B12 372 pg/mL (211-911)
[2021-10-05 09:00] LABS: Bedside Glucose 127 mg/dL (74-106)
[2021-10-05] MEDS: Ceftriaxone 1 GM/50 ML BAG IV (10:03)
[2021-10-05] MEDS: Enoxaparin 40 MG/0.4 ML Syringe SC (10:07)
--- NOTE | 2021-10-05 10:15 | CASEMGMT ---
RN NABILA Face to Face with patient for initial transition planning/care coordination assessment. RN CM introduced self and role at [facility]. Patient lying in bed, alert and oriented. Patient willing to participate in assessment and is able to answer all questions appropriately. Care providers, pharmacy, and demographics verified. Patient wishes to discharge home, denies need for home health at this time. Patient states he has no further needs or concerns at this time. CM to follow for discharge planning needs that may arise. PCP: Yannick Specialists: none Preferred Pharmacy: [facility] Insurance: Arianna AMIN Prescription Benefit: yes Living Will/HPOA: none LNOK: Living Arrangements: Patient lives with in a split level home. Patient states he is independent and able to ambulate stairs. Transportation: self, DME/HHC: Patient states he has grab bars at home. No previous HHC or SNF Disposition Plan: Patient to discharge home with family support and follow-up plans in place. Nini REZA, RN, CM
[2021-10-05] MEDS: Atenolol 50 MG Tablet PO ×2 (10:48→21:51)
[2021-10-05 11:36] LABS: Bedside Glucose 119 mg/dL (74-106)
[2021-10-05] MEDS: Escitalopram Oxalate 10 MG Tablet 30 MG PO (13:17)
[2021-10-05 17:15] LABS: Bedside Glucose 99 mg/dL (74-106)
[2021-10-05] MEDS: Atorvastatin Calcium 20 MG Tablet PO (21:51)
[2021-10-05] MEDS: 0.9% Saline Lock 10 ML Syringe IV (21:53)
[2021-10-05 23:32] LABS: Bedside Glucose 145 mg/dL (74-106)
[2021-10-06 04:37] LABS: Absolute Lymphocyte Count 2.45 X10^3/uL (0.83-4.51); Absolute Neutrophil Count 0.7 X10^3/uL (2.0-7.7); Basophil# 0.02 X10^3/uL; Basophil% 0.6 % (0-1); Eosinophil# 0.11 X10^3/uL; Eosinophils% 3.1 % (0-5); Hemoglobin 8.9 g/dL (13.0-16.5); Lymphocyte # 2.45 X10^3/ul (0.83-4.51); Lymphocyte % 68.4 % (19-41); Mean Corpuscular Hgb 33.3 pg (27.0-32.0); Mean Corpuscular Volume 101.1 fL (80-94); Mean Platelet Vol. 9.6 fl (6.2-12.0); Monocyte# 0.29 X10^3/uL; Monocyte% 8.1 % (0-10); NRBC Flagged by Analyzer 0 % (0-5); Neutrophil % 19.5 % (47-70); POSITIVE DIFFERENTIAL YES; POSITIVE MORPHOLOGY YES; Platelet Count 138 K/mm3 (150-450); RBC Distribution Width CV 16.6 % (11.6-14.6); Red Blood Count 2.67 M/mm3 (4.6-6.2); White Blood Count 3.6 K/mm3 (4.4-11.0)
[2021-10-06 04:40] LABS: Differential Indicated SCAN CRITERIA MET
[2021-10-06 05:02] LABS: Anisocytosis 2+; Macrocytosis 2+
[2021-10-06 05:11] LABS: Anion Gap 8 (5-15); BUN 17 mg/dL (7-18); BUN/Creat Ratio 19.5 RATIO (10-20); Calcium,Total 8.5 mg/dL (8.5-10.1); Chloride 103 mmol/L (98-107); Creatinine, Serum 0.87 mg/dL (0.70-1.30); EST Glomerular Filtration Rate 92 mL/min (>60); Est Glom Filt Rate - Afr Amer 111 mL/min (>60); Estimated Creatinine Clearance 84.24 ml/min; Glucose 103 mg/dL (74-106); Magnesium 2.2 mg/dL (1.6-2.6); Potassium 4.2 mmol/L (3.5-5.1); Sodium Level 135 mmol/L (136-145)
[2021-10-06 06:40] LABS: Bedside Glucose 112 mg/dL (74-106)
--- NOTE | 2021-10-06 07:25 | PCM.PN.HOSP ---
Subjective Subjective Significant decrease in the swelling involving the left patient will be assessed for possible discharge Objective Data Objective Data Vital Signs: Vital Signs Temp Pulse Resp BP Pulse Ox O2 Del Method 100 F H 82 16 127/58 H 99 Room Air 10/05/21 21:00 10/05/21 21:00 10/05/21 21:00 10/05/21 21:00 10/05/21 21:00 10/06/21 00:00 Oxygen Delivery Method Room Air Weight: 103.1 kg Body Mass Index (BMI) 30.8 Intake & Output: Intake and Output for Last 24 Hours 10/04/21 10/05/21 10/06/21 23:59 23:59 23:59 Intake Total 50 / 50 2815 / 3090 275 / 275 Balance 50 / 50 2815 / 3090 275 / 275 Lab / Micro Data Result Diagrams: 10/06/21 03:18 10/06/21 03:18 Labs: Laboratory Results - last 24 hr 10/05/21 03:15: Vitamin B12 372 10/05/21 06:14: POC Glucose 127 H 10/05/21 11:12: POC Glucose 119 H 10/05/21 16:56: POC Glucose 99 10/05/21 21:48: POC Glucose 145 H 10/06/21 03:18: WBC 3.6 L, RBC 2.67 L, Hgb 8.9 L, Hct 27.0 L, MCV 101.1 H, MCH 33.3 H, MCHC 33.0, RDW Std Deviation 61.0 H, RDW Coeff of Ricardo 16.6 H, Plt Count 138 L, MPV 9.6, Immature Gran % (Auto) 0.300, Neut % (Auto) 19.5 L, Lymph % (Auto) 68.4 H, [place] % (Auto) 8.1, Eos % (Auto) 3.1, Baso % (Auto) 0.6, Absolute Neuts (auto) 0.7 L, Absolute Lymphs (auto) 2.45, Nucleated RBC % 0, Anisocytosis 2+, Macrocytosis 2+ 10/06/21 03:18: Sodium 135 L, Potassium 4.2, Chloride 103, Carbon Dioxide 24.0, Anion Gap 8, BUN 17, Creatinine 0.87, Estim Creat Clear Calc 84.24, Est GFR (MDRD) Af Amer 111, Est GFR (MDRD) Non-Af 92, BUN/Creatinine Ratio 19.5, Glucose 103, Calcium 8.5, Magnesium 2.2 10/06/21 06:06: POC Glucose 112 H Micro: Microbiology 10/05/21 07:27 Stool Stool Occult Blood (JESSICA) - Final 10/04/21 22:45 Nasal Secretion SARS-CoV-2 & FLU Antigen (Rapid) - Final Physical Exam Narrative GENERAL: cooperative HEENT: Atraumatic; EYES; Anicteric, Normal Conjunctiva NECK; supple, normal thyroid, RESPIRATORY: Diminished to auscultation CARDIOVASCULAR: Regular S1 S2, GI: soft, normoactive bowel sounds, : No Renal angle tenderness; EXTREMITIES: Left arm swelling with a 1 cm scab on the medial aspect MUSCULOSKELETAL: no muscle wasting NEURO: Awake; no lateralizing signs. SKIN: Erythema involving the left arm PSYCH; Flat affect Assessment & Plan Assessment/Plan (1) Cellulitis: (2) Diabetes: (3) Hypertension: PLAN: Plan Patient is a 71-year-old male who presents with swelling involving the left bicep. Patient reported spider bite 3 weeks prior to his admission 1. Cellulitis involving the left upper extremity ? Patient has been admitted to regular nursing floor started on broad-spectrum antibiotic therapy (vancomycin and Rocephin) 2. Diabetes mellitus type II -patient's oral hypoglycemics held. Placed on long acting insulin, Accu-Cheks a.c. and at bedtime and covered with sliding scale insulin 3. Hypertension - Blood pressure controlled, home medications continued with dose adjustment as needed 4. Dyslipidemia -Patient is on statin therapy, continued at home dose 5. Anemia - Secondary to chronic disorder monitoring H&H and transfuse if patient becomes symptomatic or hemoglobin falls below 7 6. Class I obesity with BMI of 30.8 ? Weight loss advised 7. DVT prophylaxis ? Enoxaparin Charges/Coding Visit Charges Inpatient E&M: 86857 Subs Hosp L2
[2021-10-06 07:30] VITALS: O2SAT 94
[2021-10-06] MEDS: 0.9% Saline Lock 10 ML Syringe IV ×2 (07:55→09:47)
--- NOTE | 2021-10-06 08:37 | PCM.DC.SUM ---
Providers Date of Admission: 10/04/21 Primary Care Physician: Dr. Davion Lanier MD Reason For Visit: CELLULITIS Diagnosis Discharge Diagnosis (1) Cellulitis: Status: Acute Code(s): L03.90 - Cellulitis, unspecified (2) Diabetes: Status: Acute Code(s): E11.9 - Type 2 diabetes mellitus without complications (3) Hypertension: Status: Chronic Code(s): I10 - Essential (primary) hypertension Plan Patient is a 71-year-old male who presents with swelling involving the left bicep. Patient reported spider bite 3 weeks prior to his admission 1. Cellulitis involving the left upper extremity ? Patient has been admitted to regular nursing floor started on broad-spectrum antibiotic therapy (vancomycin and Rocephin) 2. Diabetes mellitus type II -patient's oral hypoglycemics held. Placed on long acting insulin, Accu-Cheks a.c. and at bedtime and covered with sliding scale insulin 3. Hypertension - Blood pressure controlled, home medications continued with dose adjustment as needed 4. Dyslipidemia -Patient is on statin therapy, continued at home dose 5. Anemia - Secondary to chronic disorder monitoring H&H and transfuse if patient becomes symptomatic or hemoglobin falls below 7 6. Class I obesity with BMI of 30.8 ? Weight loss advised 7. DVT prophylaxis ? Enoxaparin Medications at Discharge Home Medications alprazolam 1 mg tablet (Xanax) 1 mg PO QHS PRN PRN Anxiety 10/03/20 amlodipine 5 mg tablet (Norvasc) 5 mg PO LUNCH bp 10/03/20 atenolol 50 mg tablet (Tenormin) 50 mg PO BID bp 10/03/20 atorvastatin 20 mg tablet (Lipitor) 20 mg PO QHS cholesterol 10/03/20 escitalopram oxalate 10 mg tablet (Lexapro) 30 mg PO LUNCH mood 10/03/20 lisinopril 20 mg-hydrochlorothiazide 12.5 mg tablet 2 tab PO DAILY bp 10/03/20 metformin 500 mg tablet 500 mg PO DAILY dm 10/03/20 cetirizine 10 mg tablet 10 mg PO DAILY allergies 10/04/21 doxycycline hyclate 100 mg capsule (Vibramycin) 100 mg PO BID #14 caps 10/06/21 Hospital Course Summary of Care Provided Minutes Spent on Discharge: 35 Hospital Course: Patient is a 71-year-old male who presents with swelling involving the left bicep.? Patient reported spider bite 3 weeks prior to his admission 1.? Cellulitis involving the left upper extremity ? Patient has been admitted to regular nursing floor started on broad-spectrum antibiotic therapy (vancomycin and Rocephin) -Patient did request to be discharged the day after his admission. Was discharged home on doxycycline. Instructed to follow-up with primary care physician within 1 week for follow-up 2.? Diabetes mellitus type II -patient's oral hypoglycemics held. Placed on long acting insulin, Accu-Cheks a.c. and at bedtime and covered with sliding scale insulin 3.? Hypertension - Blood pressure controlled, home medications continued with dose adjustment as needed 4.? Dyslipidemia -Patient is on statin therapy, continued at home dose 5.? Anemia - Secondary to chronic disorder monitoring H&H and transfuse if patient becomes symptomatic or hemoglobin falls below? 7 6.? Class I obesity with BMI of 30.8 ? Weight loss advised 7.? DVT prophylaxis ? Enoxaparin Physical Exam Narrative GENERAL: cooperative HEENT: Atraumatic; EYES; Anicteric, Normal Conjunctiva NECK; supple, normal thyroid, RESPIRATORY: Diminished to auscultation CARDIOVASCULAR: Regular S1 S2, GI: soft, normoactive bowel sounds, : No Renal angle tenderness; EXTREMITIES: Left arm swelling with a 1 cm scab on the medial aspect MUSCULOSKELETAL: no muscle wasting NEURO: Awake; no lateralizing signs. SKIN: Erythema involving the left arm PSYCH; Flat affect Weight / BMI Weight Weight: 103.1 kg Body Mass Index (BMI) 30.8 ABG / Lab / Microbiology Data Result Diagrams: 10/06/21 03:18 10/06/21 03:18 Laboratory: Laboratory Results - last 24 hr 10/05/21 06:14: POC Glucose 127 H 10/05/21 11:12: POC Glucose 119 H 10/05/21 16:56: POC Glucose 99 10/05/21 21:48: POC Glucose 145 H 10/06/21 03:18: WBC 3.6 L, RBC 2.67 L, Hgb 8.9 L, Hct 27.0 L, MCV 101.1 H, MCH 33.3 H, MCHC 33.0, RDW Std Deviation 61.0 H, RDW Coeff of Ricardo 16.6 H, Plt Count 138 L, MPV 9.6, Immature Gran % (Auto) 0.300, Neut % (Auto) 19.5 L, Lymph % (Auto) 68.4 H, [place] % (Auto) 8.1, Eos % (Auto) 3.1, Baso % (Auto) 0.6, Absolute Neuts (auto) 0.7 L, Absolute Lymphs (auto) 2.45, Nucleated RBC % 0, Anisocytosis 2+, Macrocytosis 2+ 10/06/21 03:18: Sodium 135 L, Potassium 4.2, Chloride 103, Carbon Dioxide 24.0, Anion Gap 8, BUN 17, Creatinine 0.87, Estim Creat Clear Calc 84.24, Est GFR (MDRD) Af Amer 111, Est GFR (MDRD) Non-Af 92, BUN/Creatinine Ratio 19.5, Glucose 103, Calcium 8.5, Magnesium 2.2 10/06/21 06:06: POC Glucose 112 H Microbiology: Microbiology 10/05/21 07:27 Stool Stool Occult Blood (JESSICA) - Final 10/04/21 22:45 Nasal Secretion SARS-CoV-2 & FLU Antigen (Rapid) - Final D/C Instructions Discharge Diet: 1800 Calorie Control Diet Discharge Activity: Return to Normal Activity Call your doctor if you observe: Fever of 101 or Higher, Shortness of breath, Fainting spells and Chest pain Meaningful Use Info Meaningful Use Diagnoses (Choose all that apply): None applicable Discharge Plan Admission Admit Date/Time: 10/04/21 23:35 Attending Provider: Beka Nash Primary Care Provider: Davion Lanier Consulting Providers: Aly Barr Discharge Orders/Prescriptions Prescriptions: New doxycycline hyclate [Vibramycin] 100 mg capsule 100 mg PO BID Qty: 14 0RF Continued metformin 500 mg Tablet 500 mg PO DAILY atorvastatin [Lipitor] 20 mg Tablet 20 mg PO QHS lisinopril-hydrochlorothiazide 20-12.5 mg Tablet 2 tab PO DAILY MDD bp alprazolam [Xanax] 1 mg Tablet 1 mg PO QHS PRN PRN (Reason: Anxiety) amlodipine [Norvasc] 5 mg Tablet 5 mg PO LUNCH atenolol [Tenormin] 50 mg Tablet 50 mg PO BID escitalopram oxalate [Lexapro] 10 mg Tablet 30 mg PO LUNCH cetirizine 10 mg Tablet 10 mg PO DAILY Discontinued sulfamethoxazole-trimethoprim 800-160 mg tablet 1 tab PO DAILY Label Comments: TAKE 1 TABLET BY MOUTH TWICE DAILY FOR 10 DAYS. TAKE WITH FOOD Referrals / Follow Up: Davion Lanier MD [Primary Care Provider] - In 1 Week Disposition Disposition (needs filled in before D/C Order can be placed): Home, Self Care Charges/Coding Visit Charges Inpatient E&M: 56945 Disch Hosp
[2021-10-06] MEDS: Loratadine 10 MG Tablet PO (08:50)
[2021-10-06] MEDS: hydroCHLOROthiazide 25 MG Tablet PO (08:50)
[2021-10-06] MEDS: Lisinopril 40 MG Tablet PO (08:50)
[2021-10-06] MEDS: Atenolol 50 MG Tablet PO (08:51)
[2021-10-06] MEDS: Enoxaparin 40 MG/0.4 ML Syringe SC (08:51)
--- NOTE | 2021-10-06 09:38 | CASEMGMT ---
RN CM in to pt room, pt just showered and is up independently in the room. Pt denies homegoing needs.
[2021-10-06] MEDS: Ceftriaxone 1 GM/50 ML BAG IV (09:47)
--- NOTE | 2021-10-06 09:49 | PHA.DC.MC ---
Pharmacy Service has performed discharge medication reconciliation and counseling for this patient. 1. DOXYCYCLINE 100MG PO BID X 7 DAYS The patient's discharge medication list was reviewed for discrepancies and discrepancies were resolved. Home Medications alprazolam 1 mg tablet (Xanax) 1 mg PO QHS PRN PRN Anxiety 10/03/20 amlodipine 5 mg tablet (Norvasc) 5 mg PO LUNCH bp 10/03/20 atenolol 50 mg tablet (Tenormin) 50 mg PO BID bp 10/03/20 atorvastatin 20 mg tablet (Lipitor) 20 mg PO QHS cholesterol 10/03/20 escitalopram oxalate 10 mg tablet (Lexapro) 30 mg PO LUNCH mood 10/03/20 lisinopril 20 mg-hydrochlorothiazide 12.5 mg tablet 2 tab PO DAILY bp 10/03/20 metformin 500 mg tablet 500 mg PO DAILY dm 10/03/20 cetirizine 10 mg tablet 10 mg PO DAILY allergies 10/04/21 doxycycline hyclate 100 mg capsule (Vibramycin) 100 mg PO BID #14 caps 10/06/21 The patient was counseled on the following discharge medications and changes in medications for homegoing were reviewed. The Reason for Use, instructions for use, and potential side effects were reviewed for all new medications. The patient's questions regarding all of their medications were answered. The patient was able to verbally demonstrate an understanding of their discharge medications.
[2021-10-06 10:00] VITALS: BP 104/56; PULSE 86; RESP 18; TEMP 36.7; O2SAT 97
[2021-10-06 10:16] LABS: LDL, Direct 120295 21 mg/dL (0-99)
[2021-10-06 10:35] LABS: Haptoglobin 63 mg/dL (34-355)
[2021-10-06 11:17] LABS: Vancomycin, Trough Level 10.6 ug/mL (5.0-15.0)
[2021-10-06] MEDS: Escitalopram Oxalate 10 MG Tablet 30 MG PO (12:33)
[2021-10-06] MEDS: amLODIPine 5 MG Tablet PO (12:33)
[2021-10-06 12:45] LABS: Bedside Glucose 97 mg/dL (74-106)
== END 2021-10-06 13:19 | disposition home or self-care (01) | DRG 603 ==
LOC: ED 22:11 → MS3 10-05 00:01
PROVIDERS: Admitting Provider Hospitalist; Emergency Provider Emergency Medicine; PCP Internal Medicine; Visit Provider Internal Medicine
DX: L03.114 Cellulitis of left upper limb (principal); E87.2 Acidosis; E87.1 Hypo-osmolality and hyponatremia; E11.9 Type 2 diabetes mellitus without complications; E78.00 Pure hypercholesterolemia, unspecified; D64.9 Anemia, unspecified; I10 Essential (primary) hypertension; E78.5 Hyperlipidemia, unspecified; Z87.891 Personal history of nicotine dependence; Z79.84 Long term (current) use of oral hypoglycemic drugs
CPT/HCPCS: 36415; 73030; 80048; 80053; 80202; 82274; 82607; 82728; 82746; 82962; 83010; 83540; 83550; 83605; 83721; 83735; 85025; 85045; 85610; 85730; 87040; 87428; 93005; 97802; 99285; 99406; J7030; J7040; J7050; A4216

== ENCOUNTER 2022-02-10 15:51 | Inpatient (IN) | payer MEDICARE, OTHER, SELFPAY ==
[2022-02-10 15:55] VITALS: BP 118/64; PULSE 138; RESP 20; TEMP 37.9; O2SAT 98; BMI 28.2
[2022-02-10 16:18] VITALS: BP 102/60; PULSE 138; PULSE 140; RESP 30; RESP 37; TEMP 37.6; O2SAT 98; O2SAT 99
--- NOTE | 2022-02-10 16:24 | EDS_ITS ---
HPI History of Present Illness Chief Complaint: General Illness Informant: patient, spouse/S.O. 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 He had to get monoclonal antibody infusion against COVID for prophylaxis purposes prior to this which he just had, he did not have COVID recently, but it was the reason for why he had to wait on the Rituxan infusion. After the infusion today, while in the infusion center, he developed a fever up to 103, rigors and chills, he had some vomiting. Although symptoms are improving now. He feels thirsty. He received Benadryl as well as hydrocortisone and a dose of IV Zosyn while he was there. The states that they obtain some blood work and cultures she thinks. [facility] Medical History (Updated 02/10/22 @ 19:[address] 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 Wears glasses Home Medications alprazolam 1 mg tablet (Xanax) 1 mg PO QHS PRN Anxiety 10/03/20 [History Last Taken 02/09/22] amlodipine 5 mg tablet (Norvasc) 5 mg PO DAILY BLOOD PRESSURE 10/03/20 [History Last Taken 02/09/22] atenolol 50 mg tablet (Tenormin) 50 mg PO BID BLOOD PRESSURE 10/03/20 [History Last Taken 02/09/22] atorvastatin 20 mg tablet (Lipitor) 20 mg PO QHS cholesterol 10/03/20 [History Last Taken 02/09/22] escitalopram oxalate 10 mg tablet (Lexapro) 30 mg PO DAILY ANXIETY 10/03/20 [History Last Taken 02/09/22] acyclovir 400 mg tablet 400 mg PO BID 02/10/22 [History Last Taken 02/09/22] allopurinol 300 mg tablet 300 mg PO DAILY 02/10/22 [History Last Taken 02/09/22] folic acid 1 mg tablet 1 mg PO DAILY 02/10/22 [History Last Taken 02/09/22] Allergy/AdvReac Type Severity Reaction Status Date / Time Iodinated Contrast Media Allergy Hives Verified 02/10/22 16:00 Family History Other Diabetes Heart disease Hypertension Surgical History History of ankle surgery History of colonoscopy History of wisdom tooth extraction Social History Smoking Status: Former smoker ROS ROS ED Constitutional Constitutional ED: Reports chills, fatigue and fever(s) Eyes Eyes: Denies change in vision or diplopia ENT ENT ED: Denies rhinorrhea or sore throat Cardiovascular Cardiovascular: Denies chest pain or palpitations Respiratory/Chest Respiratory/Chest: Denies cough or dyspnea Gastrointestinal Gastrointestinal: Reports nausea and vomiting; Denies abdominal pain or diarrhea Genitourinary Genitourinary ED: Denies dysuria or hematuria Musculoskeletal Musculoskeletal: Denies back pain or neck pain Integumentary Denies abscess or rash Neurologic Neurologic: Denies headache(s), paresthesias or weakness Psychiatric Psychiatric: Denies anxiety or suicidal thoughts EXAM Physical Exam Const Vital Signs: 02/10/22 15:55 02/10/22 16:18 02/10/22 16:18 Temperature 100.3 F H 99.6 F H Temperature Source Temporal Oral Pulse Rate 138 H 138 H 140 H Respiratory Rate 20 H 37 H 30 H Respiratory Effort Respiratory Pattern Blood Pressure 118/64 102/60 102/60 Blood Pressure Mean 82 74 74 Pulse Ox 98 98 99 Oxygen Delivery Method Room Air Room Air Room Air 02/10/22 16:18 02/10/22 16:45 02/10/22 19:05 Temperature 99.7 F H Temperature Source Oral Pulse Rate 118 H Respiratory Rate 23 H Respiratory Effort Normal Non-Labored Respiratory Pattern Normal Blood Pressure 101/51 L Blood Pressure Mean 67 Pulse Ox 96 93 Oxygen Delivery Method Room Air Room Air Positive well nourished and well developed General Appearance ED: well developed and NAD HEENT Reports moist mucous membranes normocephalic and atraumatic Eyes PERRL and EOMs intact bilaterally Neck full ROM, no lymphadenopathy and supple Resp normal respiratory effort and clear to auscultation bilaterally Cardio regular rate, regular rhythm and no murmurs Rate: tachycardic GI non-tender and non-distended Auscultation: normoactive bowel sounds Palpation: soft Back/Spine no CVA tenderness General Back: other FROM Extremity normal to inspection General Extremety ED: Negative for edema, pulses abnormal or tenderness General Extremity: Negative for edema or pulses abnormal Neuro oriented x3, CN's II-XII intact bilaterally and no sensory deficits noted Sensorium / Orientation: awake and alert Motor Exam: strength 5/5 throughout Skin no rashes or lesions noted and no wounds Sepsis Attestation Sepsis Attestation: Agree w/Sepsis Date exam was performed: 02/10/22 Time exam was performed: 18:00 Possible Source of Sepsis: Unknown Sepsis Organ Dysfunction Criteria Present: SBP < 90 mmHg or MAP < 65 mmHg, Platelets <100,000 / uL, INR > 1.5 or aPTT > 60 sec and Lactic Acid > 2 mmol/L Fluid Resuscitation Fluid resuscitation indicated?: Yes Fluid Resuscitation ordered: 30 ml/kg fluid bolus ordered Sepsis Note Date exam was performed: 02/10/22 Time exam was performed: 19:17 Sepsis Attestation: Sepsis re-evaluation was performed Response to fluids: Fluid responsive hypotension MDM MDM MDM Narrative Medical decision making narrative: Discussed with Dr. Ty who agreed with getting the septic work-up, treating the patient with fluids here, he was given Zofran as well. Prior to being sent here, the patient had Demerol 50 mg total which treats rigors associated with Rituxan, Zosyn, Benadryl, and IV fluids. His lactic acid is 5.3, alarmingly high despite getting IV fluids prior, and his platelets were around 125K this morning, they are 37K now. This is also concerning for sepsis. He does have a history of splenomegaly. His hemoglobin is 7.7, he does not have neutropenia. Does not require blood transfusion at this time, nor does he require platelets since he is not actively bleeding but his INR is at 1.6 which is also concerning. PTT normal. Adding on a fibrinogen, since he is not having any bleeding again does not need emergent transfusion but evaluating for the possibility of DIC. Will cover him with regards to infections and his immunocompromise state with cefepime 2 g and will admit. Pancultured prior to starting the antibiotics. Lab Data Attestation: I reviewed the patient's lab results. Labs: Laboratory Results - last 24 hr 02/10/22 02/10/2202/10/22 16:40 16:40 16:40 WBC 5.5 RBC 2.28 L Hgb 7.7 L Hct 23.1 L MCV 101.3 H MCH 33.8 H MCHC 33.3 RDW Std Deviation 73.7 H RDW Coeff of Ricardo 20.6 H Plt Count 37 L* MPV 9.7 Immature Gran % (Auto) 1.300 H Neut % (Auto) 78.1 H Lymph % (Auto) 14.9 L [place] % (Auto) 4.9 Eos % (Auto) 0.4 Baso % (Auto) 0.4 Absolute Neuts (auto) 4.3 Absolute Lymphs (auto) 0.82 L Nucleated RBC % 0.4 Differential Comment SCANNED Diff Path Review May foll Platelet Estimate MKD DEC Hypochromasia 1+ Anisocytosis 2+ Microcytosis 1+ Macrocytosis 1+ PT 18.8 H INR 1.6 APTT 31.4 Fibrinogen Sodium 134 L Potassium 3.6 Chloride 100 Carbon Dioxide 21.0 Anion Gap 13 BUN 22 H Creatinine 1.23 Estim Creat Clear Calc 59.58 Est GFR (MDRD) Af Amer 74 Est GFR (MDRD) Non-Af 61 BUN/Creatinine Ratio 17.9 Glucose 103 Lactic Acid Calcium 8.6 Total Bilirubin 1.30 H AST 25 ALT 18 Alkaline Phosphatase 78 Total Protein 5.9 L Albumin 3.4 Globulin 2.5 Albumin/Globulin Ratio 1.4 Urine Color Urine Clarity Urine pH Ur Specific [place] Urine Protein Urine Glucose (UA) Urine Ketones Urine Occult Blood Urine Nitrite Urine Bilirubin Urine Urobilinogen Ur Leukocyte Esterase Urine RBC Urine WBC Ur Squamous Epith Cells Urine Bacteria Urine Mucus 02/10/22 02/10/22 02/10/22 16:40 18:05 18:05 WBC RBC Hgb Hct MCV MCH MCHC RDW Std Deviation RDW Coeff of Ricardo Plt Count MPV Immature Gran % (Auto) Neut % (Auto) Lymph % (Auto) [place] % (Auto) Eos % (Auto) Baso % (Auto) Absolute Neuts (auto) Absolute Lymphs (auto) Nucleated RBC % Differential Comment Diff Path Review Platelet Estimate Hypochromasia Anisocytosis Microcytosis Macrocytosis PT INR APTT Fibrinogen 107 L Sodium Potassium Chloride Carbon Dioxide Anion Gap BUN Creatinine Estim Creat Clear Calc Est GFR (MDRD) Af Amer Est GFR (MDRD) Non-Af BUN/Creatinine Ratio Glucose Lactic Acid 5.3 H* Calcium Total Bilirubin AST ALT Alkaline Phosphatase Total Protein Albumin Globulin Albumin/Globulin Ratio Urine Color Yellow Urine Clarity Clear Urine pH 5.0 Ur Specific [place] 1.015 Urine Protein 15 H Urine Glucose (UA) Normal Urine Ketones 5 H Urine Occult Blood Negative Urine Nitrite Negative Urine Bilirubin Negative Urine Urobilinogen 1 H Ur Leukocyte Esterase 25 H Urine RBC 0 SEEN Urine WBC 0-5 SEEN Ur Squamous Epith Cells 0-5 SEEN Urine Bacteria RARE Urine Mucus 0 SEEN Radiography Diagnostic Testing: Clinical Impression(s) from Imaging Studies Chest X-Ray 02/10/22 16:50 IMPRESSION: Normal x-ray examination of the chest. Electronically Signed: Vickey Pearl MD at 17:23 EST , Rhythm Strip Rhythm Strip: Sinus Tach Rate: 140 Ectopy: PVC(s) EKG Initial EKG: Attestation: I personally reviewed and interpreted this EKG as follows: Interpretation: No Acute Injury Pattern and Sinus Tachycardia Prior EKG tracings: available for review Prior: Unchanged Critical Care Time Critical Care Time: Yes Critical care time (excluding procedures): 30-74 minutes (35 min), Including time spent:, Discussing w/Patient &/or Family/Perinatal Social Worker, Discussing w/Consultants, Arranging Admission or Transfer and Performing Direct Patient Care at Bedside Discharge Plan Dx/Rx/DC Orders Clinical Impression: SIRS (systemic inflammatory response syndrome), Acquired immunocompromised state, Splenic marginal zone b-cell lymphoma, Adverse reaction to antineoplastic drug Disposition Disposition: Acute Care [facility]
[2022-02-10] MEDS: Ondansetron 4 MG/2 ML Vial IV (16:42)
[2022-02-10 16:45] VITALS: O2SAT 96
--- NOTE | 2022-02-10 16:50 | RAD_ITS ---
STUDY: X-RAY CHEST REASON FOR EXAM: Male, 71 years old. fever TECHNIQUE: Single frontal view of the chest. COMPARISON: None. FINDINGS: The lungs are clear and expanded. There is no demonstrated pleural abnormality. Normal size heart. Normal mediastinum and jone. Normal visualized pulmonary arteries. Normal visualized aortic arch and descending thoracic aorta. Normal visualized thoracic spine. Normal visualized ribs, clavicles, and shoulders. There is no demonstrated abnormality of the visualized soft tissue structures of the upper abdomen. RAD/Chest 1 View (Portable) IMPRESSION: Normal x-ray examination of the chest. Electronically Signed: Vickey Pearl MD at 17:23 EST ,
[2022-02-10 17:05] LABS: Absolute Lymphocyte Count 0.82 X10^3/uL (0.83-4.51); Absolute Neutrophil Count 4.3 X10^3/uL (2.0-7.7); Basophil# 0.02 X10^3/uL; Basophil% 0.4 % (0-1); Eosinophil# 0.02 X10^3/uL; Eosinophils% 0.4 % (0-5); Hematocrit 23.1 % (40-54); Hemoglobin 7.7 g/dL (13.0-16.5); Lymphocyte # 0.82 X10^3/ul (0.83-4.51); Lymphocyte % 14.9 % (19-41); Mean Corp Hgb Conc 33.3 g/dL (32-36); Mean Corpuscular Hgb 33.8 pg (27.0-32.0); Mean Corpuscular Volume 101.3 fL (80-94); Mean Platelet Vol. 9.7 fl (6.2-12.0); Monocyte# 0.27 X10^3/uL; Monocyte% 4.9 % (0-10); NRBC Flagged by Analyzer 0.4 % (0-5); Neutrophil # 4.31 X10^3/uL (2.7-7.7); Neutrophil % 78.1 % (47-70); POSITIVE COUNT YES; POSITIVE MORPHOLOGY YES; RBC Distribution Width CV 20.6 % (11.6-14.6); RBC Distribution Width SD 73.7 fl (35.1-43.9); Red Blood Count 2.28 M/mm3 (4.6-6.2); White Blood Count 5.5 K/mm3 (4.4-11.0)
[2022-02-10 17:08] LABS: Differential Indicated SCAN CRITERIA MET; Platelet Count 37 K/mm3 (150-450)
[2022-02-10 17:12] LABS: International Normalized Ratio 1.6; Prothrombin Time (Protime)PT. 18.8 SECONDS (11.7-14.9)
[2022-02-10 17:13] LABS: Partial Thromboplast Time 31.4 Seconds (24.1-36.2)
[2022-02-10 17:23] LABS: ALB/GLOB Ratio 1.4 RATIO (0.9-2.4); AST(SGOT) 25 U/L (15-37); Alanine Aminotransfer ALT/SGPT 18 U/L (16-61); Albumin, Serum 3.4 g/dL (3.2-5.0); Alkaline Phosphatase 78 U/L (45-117); Anion Gap 13 (5-15); BUN 22 mg/dL (7-18); BUN/Creat Ratio 17.9 RATIO (10-20); Calcium,Total 8.6 mg/dL (8.5-10.1); Chloride 100 mmol/L (98-107); Creatinine, Serum 1.23 mg/dL (0.70-1.30); EST Glomerular Filtration Rate 61 mL/min (>60); Est Glom Filt Rate - Afr Amer 74 mL/min (>60); Estimated Creatinine Clearance 59.58 ml/min; Globulin 2.5 g/dL (2.2-4.2); Glucose 103 mg/dL (74-106); Potassium 3.6 mmol/L (3.5-5.1); Protein, Total 5.9 g/dL (6.4-8.2); Sodium Level 134 mmol/L (136-145)
[2022-02-10 17:36] LABS: Anisocytosis 2+; Differential Comment SCANNED; Hypochromasia 1+; Macrocytosis 1+; Microcytosis 1+; Platelet Estimate MKD DEC (ADEQ)
[2022-02-10 17:39] LABS: Lactic Acid 5.3 mmol/L (0.4-1.9)
[2022-02-10] MEDS: Acetaminophen 500 MG Tablet 1000 MG PO (17:59)
[2022-02-10] MEDS: 0.9% Normal Saline 1,000 ML 999 ML IV (18:09)
[2022-02-10 18:16] LABS: Mucous, Urine 0 SEEN /hpf (<or=2+); Red Blood Cells-Urine 0 SEEN /hpf (0-5)
[2022-02-10 18:22] LABS: Color, Urine Yellow (Yellow); Glucose, Dipstick Normal (Normal); Ketone-Dipstick 5 mg/dl (Negative); Leukocyte Esterase-Dipstick 25 /ul (Negative); Nitrite-Dipstick Negative (Negative); Occult Blood-Urine Negative /ul (Negative); Protein-Dipstick 15 mg/dl (Negative); Specific Gravity, Urine 1.015 (1.002-1.030); Urine Bilirubin Dipstick Negative (Negative); Urine Clarity Clear (Clear); Urine Urobilinogen 1 mg/dl (Normal)
[2022-02-10 18:32] LABS: Bacteria RARE /hpf (None Seen); Squamous Epithelial Cells - UA 0-5 SEEN /hpf (0-5); White Blood Cells 0-5 SEEN /hpf (0-5)
[2022-02-10 18:34] LABS: Fibrinogen 107 mg/dl (203-444)
[2022-02-10 19:05] VITALS: BP 101/51; PULSE 118; RESP 23; TEMP 37.6; O2SAT 93
--- NOTE | 2022-02-10 19:30 | PCM.HP.STD ---
HPI - General General Date of Admission: 02/10/22 HPI Narrative CHARLOTTE WHITT, is a 71 M who presents to the hospital from his oncologist office secondary to a reaction to Rituxan infusion. He was recently diagnosed with large granular lymphocytic leukemia as well as a low-grade small B-cell lymphoproliferative disorder. Yesterday he was up in [place] to get a COVID antibody infusion and then today had a Rituxan infusion at his oncologist office. He developed shaking and rigors and so was given multiple doses of Demerol and then he developed fever. Fever was noted is not a common part of her Rituxan infusion reactions over toxin infusion reactions are fairly common especially on the first infusion therefore his oncologist felt that it be prudent for him to come to the ER to be worked up for an infection. UA and chest x-ray were unremarkable cultures are pending. He was given multiple fluid boluses as well started on cefepime. Of note his fibrinogen level is low and his PT is elevated so it is possible he is also having a mild DIC. We will just continue to monitor. [facility] Medical History (Updated 02/10/22 @ 19:[address] 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 Wears glasses Home Medications alprazolam 1 mg tablet (Xanax) 1 mg PO QHS PRN Anxiety 10/03/20 [History Last Taken 02/09/22] amlodipine 5 mg tablet (Norvasc) 5 mg PO DAILY BLOOD PRESSURE 10/03/20 [History Last Taken 02/09/22] atenolol 50 mg tablet (Tenormin) 50 mg PO BID BLOOD PRESSURE 10/03/20 [History Last Taken 02/09/22] atorvastatin 20 mg tablet (Lipitor) 20 mg PO QHS cholesterol 10/03/20 [History Last Taken 02/09/22] escitalopram oxalate 10 mg tablet (Lexapro) 30 mg PO DAILY ANXIETY 10/03/20 [History Last Taken 02/09/22] acyclovir 400 mg tablet 400 mg PO BID 02/10/22 [History Last Taken 02/09/22] allopurinol 300 mg tablet 300 mg PO DAILY 02/10/22 [History Last Taken 02/09/22] folic acid 1 mg tablet 1 mg PO DAILY 02/10/22 [History Last Taken 02/09/22] Allergy/AdvReac Type Severity Reaction Status Date / Time Iodinated Contrast Media Allergy Hives Verified 02/10/22 16:00 Family History Other Diabetes Heart disease Hypertension Surgical History History of ankle surgery History of colonoscopy History of wisdom tooth extraction Social History Smoking Status: Former smoker ROS Constitutional Constitutional: Reports fatigue, fever(s) and malaise; Denies chills Eyes Eyes: Denies blurry vision ENT HEENT: Denies headache(s) or nasal discharge Cardiovascular Cardiovascular: Denies chest pain, dyspnea on exertion or syncope Respiratory/Chest Respiratory/Chest: Denies cough, shortness of breath at rest or shortness of breath with exertion Gastrointestinal Gastrointestinal: Reports nausea and vomiting; Denies constipation or diarrhea Genitourinary Genitourinary: Denies dysuria Neurologic Neurologic: Denies focal weakness, numbness or tremor(s) Psychiatric Psychiatric: Denies anxiety or depression Vital Signs Vital Signs Vital Signs: 02/10/22 15:55 02/10/22 16:18 02/10/22 16:18 Temperature 100.3 F H 99.6 F H Temperature Source Temporal Oral Pulse Rate 138 H 138 H 140 H Respiratory Rate 20 H 37 H 30 H Respiratory Effort Respiratory Pattern Blood Pressure 118/64 102/60 102/60 Blood Pressure Mean 82 74 74 Pulse Ox 98 98 99 Oxygen Delivery Method Room Air Room Air Room Air 02/10/22 16:18 02/10/22 16:45 02/10/22 19:05 Temperature 99.7 F H Temperature Source Oral Pulse Rate 118 H Respiratory Rate 23 H Respiratory Effort Normal Non-Labored Respiratory Pattern Normal Blood Pressure 101/51 L Blood Pressure Mean 67 Pulse Ox 96 93 Oxygen Delivery Method Room Air Room Air Weight Weight: 208 lb Body Mass Index (BMI) 28.2 Physical Exam Narrative General: Alert, Oriented x3, Cooperative, appears uncomfortable and tired HEENT: Atraumatic, PERRLA, EOMI, Normocephalic Oral: Dry mucosa Neck: Supple, No JVD Lungs: Diminished, Normal air movement, No rhonchi, No wheeze, No rales Cardiovascular: Tachycardic, Regular Rhythm, Normal S1, Normal S2, No murmurs Abdomen: Soft, Non Tender, Non-Distended, No Hepato-splenomegaly Extremities: No edema, Capillary Refill Less than 3 Seconds Skin: No rashes, No breakdown Musculoskeletal: No Tenderness to Palpation of Joints or Extremities Neurological: Cranial nerves II-XII grossly intact, Motor Exam 5/5 strength throughout, Sensory exam intact to light touch and pain Psych/Mental Status: Flat affect, Appropriate Results Lab / Micro Data Result Diagrams: 02/10/22 16:40 02/10/22 16:40 Labs: Laboratory Results - last 24 hr 02/10/22 16:40: WBC 5.5, RBC 2.28 L, Hgb 7.7 L, Hct 23.1 L, MCV 101.3 H, MCH 33.8 H, MCHC 33.3, RDW Std Deviation 73.7 H, RDW Coeff of Ricardo 20.6 H, Plt Count 37 L*, MPV 9.7, Immature Gran % (Auto) 1.300 H, Neut % (Auto) 78.1 H, Lymph % (Auto) 14.9 L, [place] % (Auto) 4.9, Eos % (Auto) 0.4, Baso % (Auto) 0.4, Absolute Neuts (auto) 4.3, Absolute Lymphs (auto) 0.82 L, Nucleated RBC % 0.4, Differential Comment SCANNED, Diff Path Review July, Platelet Estimate MKD DEC, Hypochromasia 1+, Anisocytosis 2+, Microcytosis 1+, Macrocytosis 1+ 02/10/22 16:40: PT 18.8 H, INR 1.6, APTT 31.4 02/10/22 16:40: Sodium 134 L, Potassium 3.6, Chloride 100, Carbon Dioxide 21.0, Anion Gap 13, BUN 22 H, Creatinine 1.23, Estim Creat Clear Calc 59.58, Est GFR (MDRD) Af Amer 74, Est GFR (MDRD) Non-Af 61, BUN/Creatinine Ratio 17.9, Glucose 103, Calcium 8.6, Total Bilirubin 1.30 H, AST 25, ALT 18, Alkaline Phosphatase 78, Total Protein 5.9 L, Albumin 3.4, Globulin 2.5, Albumin/Globulin Ratio 1.4 02/10/22 16:40: Lactic Acid 5.3 H* 02/10/22 18:05: Urine Color Yellow, Urine Clarity Clear, Urine pH 5.0, Ur Specific [place] 1.015, Urine Protein 15 H, Urine Glucose (UA) Normal, Urine Ketones 5 H, Urine Occult Blood Negative, Urine Nitrite Negative, Urine Bilirubin Negative, Urine Urobilinogen 1 H, Ur Leukocyte Esterase 25 H, Urine RBC 0 SEEN, Urine WBC 0-5 SEEN, Ur Squamous Epith Cells 0-5 SEEN, Urine Bacteria RARE, Urine Mucus 0 SEEN 02/10/22 18:05: Fibrinogen 107 L Rhythm Strip Rhythm Strip: Sinus Tach Rate: 140 Ectopy: PVC(s) Radiology Impression Chest X-Ray 02/10/22 16:50 IMPRESSION: Normal x-ray examination of the chest. Electronically Signed: Vickey Pearl MD at 17:23 EST Reading Location ID and State: [address] [place] [address] , Service support , Assessment & Plan Assessment/Plan (1) Splenic marginal zone b-cell lymphoma: (2) Adverse reaction to antineoplastic drug: PLAN: Plan 1. Adverse reaction to Rituxan for splenic marginal zone B-cell lymphoma/thrombocytopenia and anemia ? We will continue with aggressive IV fluid hydration ? Continue with cefepime while cultures are pending, no current obvious sign of infection ? It is possible that he is having a reaction both to the COVID infusion as well as of the Rituxan infusion by leading to fevers it is also possible that this could be a reaction to multiple doses of Demerol while undergoing a reaction to Rituxan. We will provide ice packs for his temperature as well as Tylenol ? I did discuss the case with his oncologist so we will obtain an LDH as well as a uric acid in the morning to monitor for tumor lysis ? Continue with his home allopurinol as well as his acyclovir ? Thrombocytopenia could be related to the infusion reaction and his anemia is slightly worse than baseline we will monitor 2. HTN/HLD ? Blood pressures are marginal so we will hold his home blood pressure medications ? Can continue with his home Lipitor ? We will obtain an echo at the request of the oncologist to evaluate his cardiac function 3. Anxiety/depression ? Stable ? Continue with Lexapro and Xanax DVT: SCDs Charges/Coding Visit Charges Inpatient E&M: 99510 Init Hosp L3
[2022-02-10 19:55] VITALS: BP 93/52; PULSE 113; RESP 22; TEMP 37.6; O2SAT 93
[2022-02-10 20:18] VITALS: BMI 29.9
[2022-02-10 20:20] VITALS: BP 100/49; PULSE 105; RESP 18; TEMP 37.6; O2SAT 94
[2022-02-10] MEDS: 0.9% Normal Saline 1,000 ML 150 ML IV (20:50)
[2022-02-10 20:57] LABS: Reflex Lactate? Y
[2022-02-10 21:40] LABS: Lactic Acid 2.7 mmol/L (0.4-1.9)
[2022-02-10] MEDS: Atorvastatin Calcium 20 MG Tablet PO (22:20)
[2022-02-10] MEDS: Acyclovir 200 MG Capsule 400 MG PO (22:20)
[2022-02-10] MEDS: MELATONIN 3 MG TABLET PO (22:26)
[2022-02-10 23:27] LABS: Absolute Lymphocyte Count 1.66 X10^3/uL (0.83-4.51); Absolute Neutrophil Count 4.8 X10^3/uL (2.0-7.7); Basophil# 0.02 X10^3/uL; Basophil% 0.3 % (0-1); Eosinophil# 0.02 X10^3/uL; Eosinophils% 0.3 % (0-5); Hematocrit 18.6 % (40-54); Hemoglobin 6.1 g/dL (13.0-16.5); Lymphocyte # 1.66 X10^3/ul (0.83-4.51); Lymphocyte % 23.8 % (19-41); Mean Corp Hgb Conc 32.8 g/dL (32-36); Mean Corpuscular Hgb 34.1 pg (27.0-32.0); Mean Corpuscular Volume 103.9 fL (80-94); Monocyte# 0.42 X10^3/uL; NRBC Flagged by Analyzer 0 % (0-5); Neutrophil # 4.81 X10^3/uL (2.7-7.7); POSITIVE COUNT YES; POSITIVE MORPHOLOGY YES; RBC Distribution Width CV 20.7 % (11.6-14.6); RBC Distribution Width SD 76.4 fl (35.1-43.9); Red Blood Count 1.79 M/mm3 (4.6-6.2)
[2022-02-10 23:30] LABS: Differential Indicated SCAN CRITERIA MET; Platelet Count 39 K/mm3 (150-450)
[2022-02-10 23:35] LABS: International Normalized Ratio 1.7; Prothrombin Time (Protime)PT. 19.4 SECONDS (11.7-14.9)
[2022-02-10 23:39] LABS: Anisocytosis 2+; Macrocytosis 2+; Platelet Estimate MKD DEC (ADEQ)
[2022-02-10 23:40] LABS: Polychromasia 1+
[2022-02-10 23:42] LABS: Fibrinogen 119 mg/dl (203-444)
[2022-02-11] VITALS (10 sets, daily range): BP systolic 91–122; BP diastolic 54–70; PULSE 74–95; RESP 18–20; TEMP 36.4–37.2; O2SAT 94–100
[2022-02-11] MEDS: 0.9% Normal Saline 1,000 ML 150 ML IV (05:41)
--- NOTE | 2022-02-11 05:55 | ECHOD_ITS ---
Reason For Study: OTHER Procedure This was a 2D Doppler, Color Flow transthoracic echocardiogram. Exam performed portable in patient room. Left Ventricle Moderately dilated left ventricle. The left ventricular ejection fraction is 45 %. Normal diastololic function. Posterior, inferior and inferior septal hypokinesis. Right Ventricle Mildly dilated right ventricle. Mild to moderate global right ventricular systolic dysfunction. Atria The left atrium is mildly enlarged. The right atrium is not well visualized. Mitral Valve Mild (1+) mitral valve insufficiency. Tricuspid Valve Trivial tricuspid valve insufficiency. Right ventricular systolic pressure estimated to be 44 mmHg. Mild pulmonary hypertension. Aortic Valve Trisinus/trileaflet aortic valve. Mild focal aortic valve calcification. There is no aortic stenosis. Pulmonic Valve The pulmonic valve is not well visualized. Great Vessels The inferior vena cava is dilated. Pericardium/Pleural No pericardial effusion. MMode/2D Measurements & Calculations LVIDd: 6.5 cm IVSd: 0.76 cm Ao root diam: 4.1 cm LVIDs: 5.5 cm LVPWd: 0.85 cm FS: 16.1 % LAV(MOD-bp): 67.1 ml LVAd ap4: 35.3 cm2 SV(MOD-sp4): 59.6 ml LAV(MOD-bp) Indexed: 30.3 ml/m2 LVLd ap4: 8.6 cm LAV(MOD-sp2): 83.0 ml EDV(MOD-sp4): 122.0 ml LAV(MOD-sp4): 52.4 ml EDV(sp4-el): 123.1 ml LVAs ap4: 23.5 cm2 LVLs ap4: 7.8 cm ESV(MOD-sp4): 62.5 ml ESV(sp4-el): 60.4 ml EF(MOD-sp4): 48.8 % EF(sp4-el): 51.0 % SV(sp4-el): 62.8 ml LA A4 area: 19.5 cm2 LA dimension(2D): 4.3 cm RA A4 area: 14.8 cm2 Time Measurements MV dec time: 0.16 sec Doppler Measurements & Calculations MV E max oskar: 124.2 cm/sec Lat Peak E' Oskar: 10.5 cm/sec Med Peak E' Oskar: 8.2 cm/sec MV A max oskar: 110.4 cm/sec E/E' lat: 11.8 E/E' med: 15.1 MV E/A: 1.1 MV V2 max: 128.6 cm/sec Ao V2 max: 130.9 cm/sec MV max P.6 mmHg MV dec slope: 756.6 cm/sec2 Ao max P.9 mmHg MV V2 mean: 92.4 cm/sec Ao V2 mean: 99.0 cm/sec MV mean P.8 mmHg Ao mean P.3 mmHg MV V2 VTI: 36.3 cm Ao V2 VTI: 30.4 cm LV V1 max: 99.3 cm/sec MR max oskar: 426.7 cm/sec PA V2 max: 80.7 cm/sec LV V1 max P.0 mmHg MR max P.8 mmHg PA V2 mean: 63.4 cm/sec LV V1 mean P.3 mmHg LV V1 mean: 71.7 cm/sec LV V1 VTI: 21.9 cm TR max oskar: 273.3 cm/sec TR max P.9 mmHg ECHO/Echo Complete Interpretation Summary Moderately dilated left ventricle. The left ventricular ejection fraction is 40-45 %. Posterior, inferior and inferior septal hypokinesis. Mildly dilated right ventricle. Mild to moderate global right ventricular systolic dysfunction. The left atrium is mildly enlarged. Mild (1+) mitral valve insufficiency. Mild pulmonary hypertension. Mild focal aortic valve calcification. Ordering Physician: Jasper Hernandez Referring Physician: Davion Lanier M.D. Performed By: Estefani Jimenez RCS
[2022-02-11 07:04] LABS: Absolute Lymphocyte Count 1.27 X10^3/uL (0.83-4.51); Absolute Neutrophil Count 2.7 X10^3/uL (2.0-7.7); Basophil# 0.02 X10^3/uL; Basophil% 0.5 % (0-1); Eosinophil# 0.02 X10^3/uL; Eosinophils% 0.5 % (0-5); Hematocrit 20.6 % (40-54); Hemoglobin 6.9 g/dL (13.0-16.5); Lymphocyte # 1.27 X10^3/ul (0.83-4.51); Mean Corp Hgb Conc 33.5 g/dL (32-36); Mean Corpuscular Hgb 33.5 pg (27.0-32.0); Mean Platelet Vol. 9.6 fl (6.2-12.0); Monocyte# 0.25 X10^3/uL; Monocyte% 5.9 % (0-10); NRBC Flagged by Analyzer 0 % (0-5); Neutrophil # 2.67 X10^3/uL (2.7-7.7); Neutrophil % 62.9 % (47-70); POSITIVE COUNT YES; POSITIVE MORPHOLOGY YES; RBC Distribution Width CV 19.9 % (11.6-14.6); RBC Distribution Width SD 70.4 fl (35.1-43.9); Red Blood Count 2.06 M/mm3 (4.6-6.2); White Blood Count 4.2 K/mm3 (4.4-11.0)
[2022-02-11 07:07] LABS: Differential Indicated SCAN CRITERIA MET; Platelet Count 39 K/mm3 (150-450)
[2022-02-11 07:17] LABS: Anisocytosis 2+; Atypical Lymphocyte 1+ %; Macrocytosis 1+; Platelet Estimate MKD DEC (ADEQ)
[2022-02-11 07:29] LABS: Anion Gap 8 (5-15); BUN 19 mg/dL (7-18); BUN/Creat Ratio 21.6 RATIO (10-20); Calcium,Total 7.4 mg/dL (8.5-10.1); Chloride 105 mmol/L (98-107); Creatinine, Serum 0.88 mg/dL (0.70-1.30); EST Glomerular Filtration Rate 90 mL/min (>60); Est Glom Filt Rate - Afr Amer 109 mL/min (>60); Estimated Creatinine Clearance 83.28 ml/min; Glucose 93 mg/dL (74-106); LDH 277 U/L (87-241); Magnesium 2.1 mg/dL (1.6-2.6); Phosphorus 3.3 mg/dL (2.5-4.9); Potassium 3.5 mmol/L (3.5-5.1); Sodium Level 134 mmol/L (136-145); Uric Acid 4.7 mg/dL (3.5-7.2)
--- NOTE | 2022-02-11 07:31 | PN.HOSP_ITS ---
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 Patient was started on Zosyn and Benadryl as well as hydrocortisone, sent to the ED and subsequently admitted for further management Objective Data Objective Data Vital Signs: Vital Signs Temp Pulse Resp BP Pulse Ox O2 Del Method 98.0 F 86 20 H 105/69 95 Room Air 02/11/22 05:42 02/11/22 05:42 02/11/22 05:42 02/11/22 05:42 02/11/22 05:42 02/11/22 05:42 Oxygen Delivery Method Room Air Weight: 100 kg Body Mass Index (BMI) 29.9 Intake & Output: Intake and Output for Last 24 Hours 02/09/22 02/10/22 02/11/22 23:59 23:59 23:59 Intake Total 3248.65 / 3248.65 2295 / 2295 Output Total 1100 / 1100 1950 / 1950 Balance 2148.65 / 2148.65 345 / 345 Lab / Micro Data Result Diagrams: 02/11/22 06:45 02/11/22 06:45 Labs: Laboratory Results - last 24 hr 02/10/22 16:40: WBC 5.5, RBC 2.28 L, Hgb 7.7 L, Hct 23.1 L, MCV 101.3 H, MCH 33.8 H, MCHC 33.3, RDW Std Deviation 73.7 H, RDW Coeff of Ricardo 20.6 H, Plt Count 37 L*, MPV 9.7, Immature Gran % (Auto) 1.300 H, Neut % (Auto) 78.1 H, Lymph % (A uto) 14.9 L, [place] % (Auto) 4.9, Eos % (Auto) 0.4, Baso % (Auto) 0.4, Absolute Neuts (auto) 4.3, Absolute Lymphs (auto) 0.82 L, Nucleated RBC % 0.4, Differential Comment SCANNED, Diff Path Review May , Platelet Estimate MKD DEC, Hypochromasia 1+, Anisocytosis 2+, Microcytosis 1+, Macrocytosis 1+ 02/10/22 16:40: PT 18.8 H, INR 1.6, APTT 31.4 02/10/22 16:40: Sodium 134 L, Potassium 3.6, Chloride 100, Carbon Dioxide 21.0, Anion Gap 13, BUN 22 H, Creatinine 1.23, Estim Creat Clear Calc 59.58, Est GFR (MDRD) Af Amer 74, Est GFR (MDRD) Non-Af 61, BUN/Creatinine Ratio 17.9, Glucose 103, Calcium 8.6, Total Bilirubin 1.30 H, AST 25, ALT 18, Alkaline Phosphatase 78, Total Protein 5.9 L, Albumin 3.4, Globulin 2.5, Albumin/Globulin Ratio 1.4 02/10/22 16:40: Lactic Acid 5.3 H* 02/10/22 16:40: Blood Type O POSITIVE, Antibody Screen NEGATIVE, Crossmatch See Detail 02/10/22 18:05: Urine Color Yellow, Urine Clarity Clear, Urine pH 5.0, Ur Specific [place] 1.015, Urine Protein 15 H, Urine Glucose (UA) Normal, Urine Ketones 5 H, Urine Occult Blood Negative, Urine Nitrite Negative, Urine Bilirubin Negative, Urine Urobilinogen 1 H, Ur Leukocyte Esterase 25 H, Urine RBC 0 SEEN, Urine WBC 0-5 SEEN, Ur Squamous Epith Cells 0-5 SEEN, Urine Bacteria RARE, Urine Mucus 0 SEEN 02/10/22 18:05: Fibrinogen 107 L 02/10/22 20:59: Lactic Acid 2.7 H* 02/10/22 23:11: WBC 7.0, RBC 1.79 L, Hgb 6.1 L, Hct 18.6 L, MCV 103.9 H, MCH 34.1 H, MCHC 32.8, RDW Std Deviation 76.4 H, RDW Coeff of Ricardo 20.7 H, Plt Count 39 L*, MPV 10.0, Immature Gran % (Auto) 0.600, Neut % (Auto) 69.0, Lymph % (Auto) 23.8, [place] % (Auto) 6.0, Eos % (Auto) 0.3, Baso % (Auto) 0.3, Absolute Neuts (auto) 4.8, Absolute Lymphs (auto) 1.66, Nucleated RBC % 0, Diff Path Review May foll, Platelet Estimate MKD DEC, Polychromasia 1+, Anisocytosis 2+, Macrocytosis 2+ 02/10/22 23:11: PT 19.4 H, INR 1.7, Fibrinogen 119 L 02/11/22 06:45: WBC 4.2 L, RBC 2.06 L, Hgb 6.9 L, Hct 20.6 L, MCV 100.0 H, MCH 33.5 H, MCHC 33.5, RDW Std Deviation 70.4 H, RDW Coeff of Ricardo 19.9 H, Plt Count 39 L*, MPV 9.6, Immature Gran % (Auto) 0.200, Neut % (Auto) 62.9, Lymph % (Auto) 30.0, [place] % (Auto) 5.9, Eos % (Auto) 0.5, Baso % (Auto) 0.5, Absolute Neuts (auto) 2.7, Absolute Lymphs (auto) 1.27, Nucleated RBC % 0, Diff Path Review May foll, Atypical Lymphocytes 1+, Platelet Estimate MKD DEC, Anisocytosis 2+, Macrocytosis 1+ 02/11/22 06:45: Sodium 134 L, Potassium 3.5, Chloride 105, Carbon Dioxide 21.0, Anion Gap 8, BUN 19 H, Creatinine 0.88, Estim Creat Clear Calc 83.28, Est GFR (MDRD) Af Amer 109, Est GFR (MDRD) Non-Af 90, BUN/Creatinine Ratio 21.6 H, Glucose 93, Uric Acid 4.7, Calcium 7.4 L, Phosphorus 3.3, Magnesium 2.1, Lactate Dehydrogenase 277 H Radiography Diagnostic Testing: Radiology Impression Chest X-Ray 02/10/22 16:50 IMPRESSION: Normal x-ray examination of the chest. Electronically Signed: Vickey Pearl MD at 17:23 EST Reading Location ID and State: [address] [place] [address] , Service support , Rhythm Strip Rhythm Strip: Sinus Tach Rate: 140 Ectopy: PVC(s) Physical Exam Narrative GENERAL: cooperative HEENT: Atraumatic; normocephalic EYES; Anicteric, Normal Conjunctiva NECK; supple, normal thyroid, RESPIRATORY: Diminished to auscultation CARDIOVASCULAR: Regular S1 S2, GI: soft, normoactive bowel sounds, : No Renal angle tenderness; EXTREMITIES: No edema, no clubbing, MUSCULOSKELETAL: no muscle wasting NEURO: Awake; no lateralizing signs. 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 Patient was started on Zosyn and Benadryl as well as hydrocortisone, sent to the ED and subsequently admitted for further management 1. Suspected adverse reaction to Rituxan ? Admitted to regular nursing floor for symptomatic management 2. Large granular lymphocytic leukemia and a low-grade small B-cell lymphoproliferative disorder -Patient had an adverse reaction to Rituxan. Admitted to regular nursing floor currently being managed with IV fluids with serial LDH ordered to monitor for tumor lysis syndrome. Patient is on allopurinol did continue consult placed to patient's oncologist 3. Anemia ? Secondary to above monitoring H&H with plans to transfuse if hemoglobin falls below 7 ? Patient was transfused 1 unit PRBC plan is for patient to follow-up with Dr. Ty for repeat labs as outpatient 4. Thrombocytopenia ? Secondary to patient'schemo as well as underlying malignancy monitoring no indication for platelet transfusion at this point 5.? Hypertension -Patient presented with hypotension antihypertensives held 6.? Dyslipidemia -Patient is on statin therapy, continued at home dose 7. Depression with anxiety ? Patient is on Lexapro and alprazolam did continue 8. DVT prophylaxis ? Bilateral SCDs 9. Diabetes mellitus type II -patient's oral hypoglycemics held. Placed on long acting insulin, Accu-Cheks a.c. and at bedtime and covered with sliding scale insulin Charges/Coding Visit Charges Inpatient E&M: 15048 Subs Hosp L2
[2022-02-11] MEDS: Folic Acid 1 MG Tablet PO (08:14)
[2022-02-11] MEDS: Acyclovir 200 MG Capsule 400 MG PO (10:30)
[2022-02-11] MEDS: Escitalopram Oxalate 10 MG Tablet 30 MG PO (10:30)
[2022-02-11] MEDS: Allopurinol 300 MG Tablet PO (10:30)
--- NOTE | 2022-02-11 10:38 | PCM.DC.SUM ---
Providers Date of Admission: 02/10/22 Date of Discharge: 02/11/22 Primary Care Physician: Dr. 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 Patient was started on Zosyn and Benadryl as well as hydrocortisone, sent to the ED and subsequently admitted for further management 1. Suspected adverse reaction to Rituxan ? Admitted to regular nursing floor for symptomatic management ? Plan was for patient to have been kept 1 additional night for monitoring given his low platelet count as well as anemia with a hemoglobin of 6.9. Patient however insisted on being discharged home to get rest. Call was placed to patient's oncologist Dr. Ty Case discussed with him. He recommended for patient to follow-up with his office in a day for repeat labs. 2. Large granular lymphocytic leukemia and a low-grade small B-cell lymphoproliferative disorder -Patient had an adverse reaction to Rituxan. Admitted to regular nursing floor currently being managed with IV fluids with serial LDH ordered to monitor for tumor lysis syndrome. Patient is on allopurinol did continue consult placed to patient's oncologist 3. Anemia ? Secondary to above monitoring H&H with plans to transfuse if hemoglobin falls below 7 ? Patient was transfused 1 unit PRBC plan is for patient to follow-up with Dr. Ty for repeat labs as outpatient 4. Thrombocytopenia ? Secondary to patient'schemo as well as underlying malignancy monitoring no indication for platelet transfusion at this point 5.? Hypertension -Patient presented with hypotension antihypertensives held 6.? Dyslipidemia -Patient is on statin therapy, continued at home dose 7. Depression with anxiety ? Patient is on Lexapro and alprazolam did continue 8. DVT prophylaxis ? Bilateral SCDs 9. Diabetes mellitus type II -patient's oral hypoglycemics held. Placed on long acting insulin, Accu-Cheks a.c. and at bedtime and covered with sliding scale insulin Medications at Discharge Home Medications alprazolam 1 mg tablet (Xanax) 1 mg PO QHS PRN Anxiety 10/03/20 amlodipine 5 mg tablet (Norvasc) 5 mg PO DAILY BLOOD PRESSURE 10/03/20 atenolol 50 mg tablet (Tenormin) 50 mg PO BID BLOOD PRESSURE 10/03/20 atorvastatin 20 mg tablet (Lipitor) 20 mg PO QHS cholesterol 10/03/20 escitalopram oxalate 10 mg tablet (Lexapro) 30 mg PO DAILY ANXIETY 10/03/20 acyclovir 400 mg tablet 400 mg PO BID 02/10/22 allopurinol 300 mg tablet 300 mg PO DAILY 02/10/22 folic acid 1 mg tablet 1 mg PO DAILY 02/10/22 levofloxacin 750 mg tablet 750 mg PO DAILY #7 tabs 02/11/22 Hospital Course Summary of Care Provided Minutes Spent on Discharge: 40 Physical Exam Narrative GENERAL: cooperative HEENT: Atraumatic; normocephalic EYES; Anicteric, Normal Conjunctiva NECK; supple, normal thyroid, RESPIRATORY: Diminished to auscultation CARDIOVASCULAR: Regular S1 S2, GI: soft, normoactive bowel sounds, : No Renal angle tenderness; EXTREMITIES: No edema, no clubbing, MUSCULOSKELETAL: no muscle wasting NEURO: Awake; no lateralizing signs. SKIN: No Rash PSYCH; Flat affect Weight / BMI Weight Weight: 100 kg Body Mass Index (BMI) 29.9 ABG / Lab / Microbiology Data Result Diagrams: 02/11/22 06:45 02/11/22 06:45 Laboratory: Laboratory Results - last 24 hr 02/10/22 16:40: WBC 5.5, RBC 2.28 L, Hgb 7.7 L, Hct 23.1 L, MCV 101.3 H, MCH 33.8 H, MCHC 33.3, RDW Std Deviation 73.7 H, RDW Coeff of Ricardo 20.6 H, Plt Count 37 L*, MPV 9.7, Immature Gran % (Auto) 1.300 H, Neut % (Auto) 78.1 H, Lymph % (Auto) 14.9 L, [place] % (Auto) 4.9, Eos % (Auto) 0.4, Baso % (Auto) 0.4, Absolute Neuts (auto) 4.3, Absolute Lymphs (auto) 0.82 L, Nucleated RBC % 0.4, Differential Comment SCANNED, Diff Path Review July, Platelet Estimate MKD DEC, Hypochromasia 1+, Anisocytosis 2+, Microcytosis 1+, Macrocytosis 1+ 02/10/22 16:40: PT 18.8 H, INR 1.6, APTT 31.4 02/10/22 16:40: Sodium 134 L, Potassium 3.6, Chloride 100, Carbon Dioxide 21.0, Anion Gap 13, BUN 22 H, Creatinine 1.23, Estim Creat Clear Calc 59.58, Est GFR (MDRD) Af Amer 74, Est GFR (MDRD) Non-Af 61, BUN/Creatinine Ratio 17.9, Glucose 103, Calcium 8.6, Total Bilirubin 1.30 H, AST 25, ALT 18, Alkaline Phosphatase 78, Total Protein 5.9 L, Albumin 3.4, Globulin 2.5, Albumin/Globulin Ratio 1.4 02/10/22 16:40: Lactic Acid 5.3 H* 02/10/22 16:40: Blood Type O POSITIVE, Antibody Screen NEGATIVE, Crossmatch See Detail 02/10/22 18:05: Urine Color Yellow, Urine Clarity Clear, Urine pH 5.0, Ur Specific [place] 1.015, Urine Protein 15 H, Urine Glucose (UA) Normal, Urine Ketones 5 H, Urine Occult Blood Negative, Urine Nitrite Negative, Urine Bilirubin Negative, Urine Urobilinogen 1 H, Ur Leukocyte Esterase 25 H, Urine RBC 0 SEEN, Urine WBC 0-5 SEEN, Ur Squamous Epith Cells 0-5 SEEN, Urine Bacteria RARE, Urine Mucus 0 SEEN 02/10/22 18:05: Fibrinogen 107 L 02/10/22 20:59: Lactic Acid 2.7 H* 02/10/22 23:11: WBC 7.0, RBC 1.79 L, Hgb 6.1 L, Hct 18.6 L, MCV 103.9 H, MCH 34.1 H, MCHC 32.8, RDW Std Deviation 76.4 H, RDW Coeff of Ricardo 20.7 H, Plt Count 39 L*, MPV 10.0, Immature Gran % (Auto) 0.600, Neut % (Auto) 69.0, Lymph % (Auto) 23.8, [place] % (Auto) 6.0, Eos % (Auto) 0.3, Baso % (Auto) 0.3, Absolute Neuts (auto) 4.8, Absolute Lymphs (auto) 1.66, Nucleated RBC % 0, Diff Path Review May foll, Platelet Estimate MKD DEC, Polychromasia 1+, Anisocytosis 2+, Macrocytosis 2+ 02/10/22 23:11: PT 19.4 H, INR 1.7, Fibrinogen 119 L 02/11/22 06:45: WBC 4.2 L, RBC 2.06 L, Hgb 6.9 L, Hct 20.6 L, MCV 100.0 H, MCH 33.5 H, MCHC 33.5, RDW Std Deviation 70.4 H, RDW Coeff of Ricardo 19.9 H, Plt Count 39 L*, MPV 9.6, Immature Gran % (Auto) 0.200, Neut % (Auto) 62.9, Lymph % (Auto) 30.0, [place] % (Auto) 5.9, Eos % (Auto) 0.5, Baso % (Auto) 0.5, Absolute Neuts (auto) 2.7, Absolute Lymphs (auto) 1.27, Nucleated RBC % 0, Diff Path Review May foll, Atypical Lymphocytes 1+, Platelet Estimate MKD DEC, Anisocytosis 2+, Macrocytosis 1+ 02/11/22 06:45: Sodium 134 L, Potassium 3.5, Chloride 105, Carbon Dioxide 21.0, Anion Gap 8, BUN 19 H, Creatinine 0.88, Estim Creat Clear Calc 83.28, Est GFR (MDRD) Af Amer 109, Est GFR (MDRD) Non-Af 90, BUN/Creatinine Ratio 21.6 H, Glucose 93, Uric Acid 4.7, Calcium 7.4 L, Phosphorus 3.3, Magnesium 2.1, Lactate Dehydrogenase 277 H Radiography Diagnostic Testing: Radiology Impression Chest X-Ray 02/10/22 16:50 IMPRESSION: Normal x-ray examination of the chest. Electronically Signed: Vickey Pearl MD at 17:23 EST Reading Location ID and State: [address] [place] [address] , Service support , D/C Instructions Discharge Diet: No restrictions Discharge Activity: Return to Normal Activity Call your doctor if you observe: Fever of 101 or Higher, Shortness of breath, Fainting spells and Chest pain Meaningful Use Info Meaningful Use Diagnoses (Choose all that apply): None applicable Discharge Plan Admission Admit Date/Time: 02/10/22 19:19 Attending Provider: Beka Nash Primary Care Provider: Davion Lanier Consulting Providers: Jasper Hernandez Discharge Orders/Prescriptions Prescriptions: New levofloxacin 750 mg tablet 750 mg PO DAILY Qty: 7 0RF Continued atorvastatin [Lipitor] 20 mg Tablet 20 mg PO QHS alprazolam [Xanax] 1 mg Tablet 1 mg PO QHS PRN (Reason: Anxiety) amlodipine [Norvasc] 5 mg Tablet 5 mg PO DAILY atenolol [Tenormin] 50 mg Tablet 50 mg PO BID escitalopram oxalate [Lexapro] 10 mg Tablet 30 mg PO DAILY acyclovir 400 mg tablet 400 mg PO BID Label Comments: TAKE 1 TABLET BY MOUTH TWICE A DAY folic acid 1 mg tablet 1 mg PO DAILY allopurinol 300 mg tablet 300 mg PO DAILY Label Comments: TAKE 1 TABLET BY MOUTH EVERY DAY Referrals / Follow Up: Jarrell Ty DO [Med Staff - Active Staff] - In 1 Day Davion Lanier MD [Primary Care Provider] - In 1 Week Disposition Disposition (needs filled in before D/C Order can be placed): Home, Self Care Charges/Coding Visit Charges Inpatient E&M: 76633 Disch Hosp
[2022-02-11 11:52] LABS: Pathologist Review Reviewed
--- NOTE | 2022-02-11 12:15 | CASEMGMT ---
BEBETO DAHL ENGRAVER LETTER CM to room to meet with patient for initial transition planning/care coordination assessment. BEBETO DAHL introduced self and role at [facility]. Pt voices understanding and consents to assessment at this time. Pt sitting up in recliner chair in room in no distress at this time and states he is ready to go home. @ bedside. Pt is A/O at this time and answers all questions appropriately. Care providers, pharmacy, and demographics verified/updated at this time. PCP: Dr Lanier Specialists: Dr Ty-oncology Preferred Pharmacy: [facility] Insurance: [facility], Prescription Benefit: yes Living Will/HPOA: States does not have LW or HCPOA. Provided information but states does not want to talk with SW at this time to complete paperwork. Given Social Service rac card with number to call if chooses in the future to utilize [facility] social work for advanced directive completion. LNOK: Living Arrangements: Patient lives with in a split level home. Patient states he is independent and able to ambulate stairs. Transportation: self, DME/HHC: Pt has grab bars and a cane. He does not have a glucometer. He states Dr Lanier took him off of his oral diabetic medications and wanted him to check his BS's but that he sent the script for the glucometer to [facility] and they do not carry glucometers. He states he has his glucose checked frequently @ oncology appts and he is keeping track of what they have been. BEBETO DAHL offered to get script for glucometer from hospitalist prior to discharge, but pt and declined. BEBETO DAHL advised they could f/u with PCP to obtain new script for glucometer so pt can get one from a local pharmacy/drug store. They were also made aware of OTC Rel[employer] glucometers available @ [facility]. They voice understanding. They state pt has a f/u appt with Dr Lanier on Feb 25 and plans to f/u with him then. SNF/HHC: No previous HHC or SNF Pt wishes to return home and states has no concerns with going home at time of discharge. Pacheco REYESN BEBETO DAHL
[2022-02-11 14:16] LABS: Pathologist Review Reviewed
[2022-02-11 14:17] LABS: Pathologist Review Reviewed
== END 2022-02-11 13:00 | disposition home or self-care (01) | DRG 312 ==
LOC: ED 19:21 → MS3 19:56
PROVIDERS: Admitting Provider Family Medicine; Emergency Provider Emergency Medicine; PCP Internal Medicine; Visit Provider Internal Medicine
DX: I95.2 Hypotension due to drugs (principal); C83.07 Small cell B-cell lymphoma, spleen; C91.Z0 Other lymphoid leukemia not having achieved remission; E11.9 Type 2 diabetes mellitus without complications; D69.59 Other secondary thrombocytopenia; D63.0 Anemia in neoplastic disease; E78.00 Pure hypercholesterolemia, unspecified; F41.8 Other specified anxiety disorders; I10 Essential (primary) hypertension; R11.10 Vomiting, unspecified; T45.1X5A Adverse effect of antineoplastic and immunosuppressive drugs, initial encounter; Z87.891 Personal history of nicotine dependence; Z79.899 Other long term (current) drug therapy
CPT/HCPCS: 36415; 71045; 80048; 80053; 81001; 83605; 83615; 83735; 84100; 84550; 85025; 85384; 85610; 85730; 86850; 86900; 86901; 86920; 86922; 87040; 87086; 93005; 93306; 99285; J7030; J7040; P9016; J2405

== ENCOUNTER 2022-02-21 11:22 | Inpatient (IN) | payer MEDICARE, OTHER, SELFPAY ==
[2022-02-21] VITALS (7 sets, daily range): BP systolic 108–126; BP diastolic 57–66; PULSE 73–90; RESP 16–26; TEMP 36.7–36.9; O2SAT 94–98; BMI 29.9; BMI 28.9
--- NOTE | 2022-02-21 11:53 | EKG12_ITS ---
Test Reason : CP Blood Pressure : / mmHG Vent. Rate : 086 BPM Atrial Rate : 086 BPM P-R Int : 144 ms QRS Dur : 100 ms QT Int : 426 ms P-R-T Axes : 036 004 243 degrees QTc Int : 509 ms Normal sinus rhythm Inferior infarct , age undetermined Anterior infarct , age undetermined ST & T wave abnormality, consider lateral ischemia Prolonged QT Abnormal ECG Confirmed by DALE ALMAZAN MD ([id number]), greeting card editor ADRIA VIDES ([id number]) on 02/22/2022 12:05:39 PM Referred By: CHIQUIS/YONIS Confirmed By:DALE ALMAZAN MD
--- NOTE | 2022-02-21 12:02 | ED.VIS.CHEST ---
HPI History of Present Illness Chief Complaint: Chest Pain Detail of Chief Complaint: Last night. Informant: patient and spouse/S.O. Onset/Context/Timing Onset: Yesterday Activity at onset: gradual Quality: Positive for Aching Location: Substernal Current Severity: Mild Maximum Severity: Mild Worsened By: Nothing Relieved By: Nothing Associated Symptoms: Negative for Nausea, Vomiting, Diaphoresis, Dyspnea, Cough, Fever, Lightheadedness, Acid Reflux or Palpitations Narrative Narrative: 71-year-old male currently being treated with chemotherapy for lymphoma. He is profoundly anemic with it with his hemoglobins around 6. He has never had a DVT or PE. No leg pain or hemoptysis. No pleuritic pain. States last night he had some mild chest discomfort. Denied any nausea. He gets short of breath all the time with his anemia but not specifically with his chest discomfort. It was substernal. It did not radiate to his neck jaw or back. He had some tingling in his right arm. He has no cardiac history. He does have an appointment to see a repairer sash and door with the [facility] this coming week. He had EKG findings at his oncologist office and they wanted further evaluated. 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 Wears glasses Home Medications alprazolam 1 mg tablet (Xanax) 1 mg PO QHS PRN Anxiety 10/03/20 [History Last Taken 02/09/22] amlodipine 5 mg tablet (Norvasc) 5 mg PO DAILY BLOOD PRESSURE 10/03/20 [History Last Taken 02/09/22] atenolol 50 mg tablet (Tenormin) 50 mg PO BID BLOOD PRESSURE 10/03/20 [History Last Taken 02/09/22] atorvastatin 20 mg tablet (Lipitor) 20 mg PO QHS cholesterol 10/03/20 [History Last Taken 02/09/22] escitalopram oxalate 10 mg tablet (Lexapro) 30 mg PO DAILY ANXIETY 10/03/20 [History Last Taken 02/09/22] acyclovir 400 mg tablet 400 mg PO BID 02/10/22 [History Last Taken 02/09/22] allopurinol 300 mg tablet 300 mg PO DAILY 02/10/22 [History Last Taken 02/09/22] folic acid 1 mg tablet 1 mg PO DAILY 02/10/22 [History Last Taken 02/09/22] levofloxacin 750 mg tablet 750 mg PO DAILY #7 tabs 02/11/22 [Rx Last Taken Unknown] Allergy/AdvReac Type Severity Reaction Status Date / Time Iodinated Contrast Media Allergy Hives Verified 02/21/22 11:35 Family History Other Diabetes Heart disease Hypertension Surgical History History of ankle surgery History of colonoscopy History of wisdom tooth extraction Social History Smoking Status: Former smoker ROS ROS ED ROS Narrative Anemia with dyspnea. Review of Systems ROS Unobtainable: Denies due to encephalopathy Constitutional Constitutional ED: Denies chills or fever(s) Eyes Eyes: Reports none ENT ENT ED: Denies ear pain or rhinorrhea Cardiovascular Cardiovascular: Reports as per HPI and chest pain; Denies palpitations or racing heartbeat Respiratory/Chest Respiratory/Chest: Reports dyspnea; Denies cough Gastrointestinal Gastrointestinal: Denies abdominal pain, constipation, diarrhea, melena, nausea or vomiting Genitourinary Genitourinary ED: Denies dysuria or hematuria Musculoskeletal Musculoskeletal: Denies arthralgias Integumentary Denies abscess Neurologic Neurologic: Denies headache(s) Psychiatric Psychiatric: Denies anxiety Endocrine Endocrinology: Denies cold intolerance Hematologic/Lymphatic Hematologic/Lymphatic: Denies easy bleeding or easy bruising Allergic/Immunologic Allergic/Immunologic ED: Denies mouth swelling or tongue swelling EXAM Physical Exam Narrative Exam Narrative: 71-year-old male vital signs are stable afebrile. Pulse ox 90% room air no hypoxia. H EENT exam unremarkable neck nontender. Lungs are auscultation bilaterally. Heart regular rate and rhythm rate about 85 no murmur. Chest wall nontender. Abdomen soft nontender. Moving all 4 extremities. Calves are nontender without edema or cords. Equal symmetrical radial pulses. Neurologically is awake and alert with no focal motor deficits. Benign exam. Const Vital Signs: 02/21/22 11:28 02/21/22 11:35 02/21/22 11:53 Temperature 98.1 F Temperature Source Oral Pulse Rate 85 Respiratory Rate 26 H Respiratory Effort Normal Non-Labored Blood Pressure 108/57 L Blood Pressure Mean 74 Pulse Ox 98 Oxygen Delivery Method Room Air Room Air Positive well nourished and well developed; Negative for obese, cachectic, contractures or unkempt General Appearance ED: well developed and NAD; Negative for unkempt, cachectic, contractures or pallor Nutritional Appearance: Negative for cachectic or obese HEENT Reports moist mucous membranes normocephalic and atraumatic; Negative for trauma or tenderness Eyes PERRL and EOMs intact bilaterally General Eye ED: Negative for pale conjunctiva or scleral icterus Neck no lymphadenopathy, supple and no JVD General: Negative for tenderness Chest Wall inspection of chest normal and palpation of chest normal Chest: Negative for tenderness Resp clear to auscultation bilaterally Effort and Inspection: Negative for respiratory distress or pain with movement Auscultation: Negative for rales, rhonchi or wheezes Cardio regular rate, regular rhythm, S1 normal heart sound, S2 normal heart sound and no murmurs Rate: Negative for bradycardia or tachycardic Rhythm: Negative for abnormal rhythm Peripheral Pulses: pulses 2+ throughout GI normal to inspection, nondistended, normoactive bowel sounds, soft to palpation, non-tender, non-distended and no masses Auscultation: Negative for hyperactive bowel sounds Back/Spine no CVA tenderness and no thoracic nor lumbar tenderness General Back: Negative for CVA tenderness Cervical Spine: Negative for cervical spine tenderness Extremity normal to inspection General Extremety ED: Negative for edema, pulses abnormal or tenderness General Extremity: Negative for edema or pulses abnormal Neuro oriented x3 and CN's II-XII intact bilaterally Sensorium / Orientation: awake, alert, oriented to person, oriented to place and oriented to time; Negative for confused or lethargic Motor Exam: strength 5/5 throughout Psych mental status grossly normal Appearance: Negative for unkempt Attitude: No agitated Mood & Affect: Negative for depressed, anxious or tearful Skin no wounds General Skin Exam: Negative for jaundice or pallor Rashes: No rashes noted Trauma: Negative for abrasion or laceration Heart Score History: Slightly/Non-Suspicious ECG: Normal Age: >/= 65 years Risk Factors: 1 or 2 Risk Factors Score: 3 MDM MDM MDM Narrative Medical decision making narrative: [id number] male with lymphoma being treated with chemotherapy with anemia. With atypical nonexertional chest pain. Undergo cardiac work-up. Repeat exam at 12:55 PM unchanged. I went over test results with patient and his . The pain is atypical but he deftly has an elevated troponin he is anemic I will need to be admitted for further evaluation for non-ST elevation [place]. Hospitalist is on page. I will also speak with Dr. León of cardiology. Lab Data Attestation: I reviewed the patient's lab results. Lab results narrative: CBC shows a white count 3.6 H&H 8.5 and 24 he has a significant baseline anemia. Platelets 94,000. Electrolytes show sodium 134 gap of 7 normal BUN and creatinine. Troponins elevated 694. Chest x-ray shows chronic changes no acute process. Labs: Laboratory Results - last 24 hr 02/21/22 02/21/22 12:13 12:13 WBC 3.6 L RBC 2.45 L Hgb 8.5 L Hct 24.0 L MCV 98.0 H MCH 34.7 H MCHC 35.4 RDW Std Deviation 73.2 H RDW Coeff of Ricardo 21.0 H Plt Count 94 L MPV 10.7 Immature Gran % (Auto) 0.600 Neut % (Auto) 21.0 L Lymph % (Auto) 71.3 H Bennett % (Auto) 5.4 Eos % (Auto) 0.6 Baso % (Auto) 1.1 H Absolute Neuts (auto) 0.8 L Absolute Lymphs (auto) 2.53 Nucleated RBC % 0 Differential Comment SCANNED Reactive Lymphocytes 1+ Platelet Estimate SLT DEC Anisocytosis 2+ Microcytosis 1+ Macrocytosis 1+ Sodium 134 L Potassium 4.0 Chloride 103 Carbon Dioxide 24.0 Anion Gap 7 BUN 13 Creatinine 0.75 Estim Creat Clear Calc 73.29 Est GFR (MDRD) Af Amer 131 Est GFR (MDRD) Non-Af 108 BUN/Creatinine Ratio 17.3 Glucose 131 H Calcium 8.4 L Troponin I High Sens 694 H* Radiography Chest X-Ray - ED: 1 View, Read by ED Physician, Read by Radiologist, Heart, Lungs, Mediastinum, Bony Structures, No Acute Disease and Chronic Changes Diagnostic Testing: Clinical Impression(s) from Imaging Studies Chest X-Ray 02/21/22 12:22 IMPRESSION: No acute cardiopulmonary abnormality. No interval change Electronically Signed: Salvador So MD at 12:39 EST , This x-ray, portable, single view shows no acute abnormality. Normal cardiac silhouette mediastinum. Interpreted both by myself and radiologist. Rhythm Strip Rhythm Strip: Sinus Rhythm Rate: 86 Ectopy: None EKG Initial EKG: Attestation: I personally reviewed and interpreted this EKG as follows: Interpretation: Sinus Rhythm and No Acute Injury Pattern Comments: Normal sinus rhythm rate 86. Dad has have inverted T waves in lead to 3 aVF also and V3 through V6. There is no ST elevation. Compared to a prior EKG from February 10 the T wave inversion does appear to be new. He did have ST depression at that time. Prior EKG tracings: available for review Prior: Changed Discharge Plan Dx/Rx/DC Orders Clinical Impression: Chest pain, Non-ST elevated myocardial infarction, History of lymphoma, Anemia in chronic illness Disposition Disposition: Acute Care [facility]
--- NOTE | 2022-02-21 12:22 | RAD_ITS ---
EXAM: XR CHEST, 1 VIEW CLINICAL INDICATION: chest pain TECHNIQUE: Frontal view of the chest. This report was created using Path report generation technology. COMPARISON: XR Chest dated 02/10/2022 FINDINGS: LUNGS AND PLEURAL SPACES: Normal. No consolidation or edema. No pneumothorax. No effusion. HEART: Normal heart size. MEDIASTINUM: No mediastinal or hilar mass. BONES/JOINTS: No acute abnormality. SOFT TISSUES: Normal. RAD/Chest 1 View (Portable) IMPRESSION: No acute cardiopulmonary abnormality. No interval change Electronically Signed: Salvador So MD at 12:39 EST ,
[2022-02-21 12:26] LABS: Absolute Lymphocyte Count 2.53 X10^3/uL (0.83-4.51); Absolute Neutrophil Count 0.8 X10^3/uL (2.0-7.7); Basophil# 0.04 X10^3/uL; Basophil% 1.1 % (0-1); Eosinophil# 0.02 X10^3/uL; Eosinophils% 0.6 % (0-5); Hemoglobin 8.5 g/dL (13.0-16.5); Lymphocyte # 2.53 X10^3/ul (0.83-4.51); Lymphocyte % 71.3 % (19-41); Mean Corp Hgb Conc 35.4 g/dL (32-36); Mean Corpuscular Hgb 34.7 pg (27.0-32.0); Mean Platelet Vol. 10.7 fl (6.2-12.0); Monocyte# 0.19 X10^3/uL; Monocyte% 5.4 % (0-10); NRBC Flagged by Analyzer 0 % (0-5); Neutrophil # 0.75 X10^3/uL (2.7-7.7); POSITIVE COUNT YES; POSITIVE DIFFERENTIAL YES; POSITIVE MORPHOLOGY YES; Platelet Count 94 K/mm3 (150-450); RBC Distribution Width SD 73.2 fl (35.1-43.9); Red Blood Count 2.45 M/mm3 (4.6-6.2); White Blood Count 3.6 K/mm3 (4.4-11.0)
[2022-02-21 12:29] LABS: Differential Indicated SCAN CRITERIA MET
[2022-02-21 12:42] LABS: Anion Gap 7 (5-15); BUN 13 mg/dL (7-18); BUN/Creat Ratio 17.3 RATIO (10-20); Calcium,Total 8.4 mg/dL (8.5-10.1); Chloride 103 mmol/L (98-107); Creatinine, Serum 0.75 mg/dL (0.70-1.30); EST Glomerular Filtration Rate 108 mL/min (>60); Est Glom Filt Rate - Afr Amer 131 mL/min (>60); Estimated Creatinine Clearance 73.29 ml/min; Glucose 131 mg/dL (74-106); Sodium Level 134 mmol/L (136-145); Troponin-I HS (w/2H Reflex) 694 pg/mL (3.0-78.0)
[2022-02-21 12:54] LABS: Anisocytosis 2+; Macrocytosis 1+; Microcytosis 1+; Platelet Estimate SLT DEC (ADEQ); Reactive Lymphocyte 1+
[2022-02-21 12:55] LABS: Differential Comment SCANNED
--- NOTE | 2022-02-21 13:11 | HP.PCM.HOS_ITS ---
HPI - General General Date of Admission: 02/21/22 Date of Service: 02/21/22 Chief Complaint: Fever, fatigue - 1 week HPI Narrative CHARLOTTE WHITT, is a 71 M who presents with the above. 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 He recently was admitted with pancytopenia and discharged on 02/11/2022 after receiving blood transfusions. Patient at that time was getting his first dose of immunotherapy. He did not complete his dose at that time. Since his discharge, patient had followed up with oncology and did receive a full dose of his second immunotherapy on 02/17/2022. He has since been very fatigued, running a fever as high as 103F at home. He was reluctant to come back to the hospital. With the fatigue being persistent, 1 to 2 days prior to admission, patient started having chest discomfort as well as right upper extremity tingling and numbness. Patient had presented on 02/19/2022 to his oncologist and an EKG was done. He was recommended to follow- up with a system administration advisor in the [facility]. However, his chest discomfort and RUE tingling and numbness worsened over the night prior to admission. On the morning of admission, he felt worse and decided to come to the emergency room His vitals in the ED showed blood pressure 108/57, heart rate 85, respiratory 26, temperature 98.1 F, oxygen sat was 98% on room air. His admitting WBC count was 3.6, hemoglobin 8.5, platelet count 94. His CMP was unremarkable except for sodium of 134 which was his baseline. Magnesium was 2.2, phosphorus 3.7, troponins with 641. EKG in the ED shows T wave inversions in II, III, aVF V3 to V6, this is different from his previous EKG on to the had shown some slight ST segment depression in V3-V6. 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 Wears glasses Home Medications alprazolam 1 mg tablet (Xanax) 1 mg PO QHS PRN Anxiety 10/03/20 [History Last Taken 02/09/22] amlodipine 5 mg tablet (Norvasc) 5 mg PO DAILY BLOOD PRESSURE 10/03/20 [History Last Taken 02/20/22] atenolol 50 mg tablet (Tenormin) 50 mg PO DAILY BLOOD PRESSURE 10/03/20 [History Last Taken 02/21/22] atorvastatin 20 mg tablet (Lipitor) 20 mg PO QHS cholesterol 10/03/20 [History Last Taken 02/20/22] escitalopram oxalate 10 mg tablet (Lexapro) 30 mg PO DAILY ANXIETY 10/03/20 [History Last Taken 02/20/22] acyclovir 400 mg tablet 400 mg PO BID cancer 02/10/22 [History Last Taken 02/21/22] allopurinol 300 mg tablet 300 mg PO DAILY arthritis 02/10/22 [History Last Taken 02/21/22] folic acid 1 mg tablet 1 mg PO DAILY supplement 02/10/22 [History Last Taken 02/21/22] Allergy/AdvReac Type Severity Reaction Status Date / Time Iodinated Contrast Media Allergy Hives Verified 02/21/22 11:35 Family History Other Diabetes Heart disease Hypertension Surgical History History of ankle surgery History of colonoscopy History of wisdom tooth extraction Social History (Updated 02/21/22 @ 16:[address] Naomi Espinal MD) household members: spouse Smoking Status: Former smoker alcohol intake: former substance use type: does not use ROS ROS Narrative Constitutional: Reports: Malaise, Weakness, Fatigue, fever. Denies: Anorexia,Night Sweats, Weight Change Eyes: Denies: Blurred vision, Cataracts, Conjunctivae Inflammation, Pain, Redness, Vision Change HEENT: Denies: Difficulty Hearing, Difficulty Swallowing, Head Aches, Hearing Changes, Sinus Congestion, Sinus Drainage Cardiovascular: See HPI Respiratory: Denies: Cough, Shortness of breath at rest, Sputum production Gastrointestinal: Denies: Abdominal Pain, Nausea, Vomiting Genitourinary: Denies: Dysuria Musculoskeletal: Denies: Joint Pain, Joint stiffness, Joint swelling, Joint Tenderness Skin: Denies: Rash, Wounds Neurological: See HPI denies: Numbness, Tingling, Focal weakness Vital Signs Vital Signs Vital Signs: 02/21/22 11:28 02/21/22 11:35 02/21/22 11:53 Temperature 98.1 F Temperature Source Oral Pulse Rate 85 Respiratory Rate 26 H Respiratory Effort Normal Non-Labored Blood Pressure 108/57 L Blood Pressure Mean 74 Pulse Ox 98 Oxygen Delivery Method Room Air Room Air Weight Weight: 100.3 kg Body Mass Index (BMI) 29.9 Physical Exam Narrative Physical exam: General: Alert, Oriented x3, Cooperative, appears fatigued HEENT: Atraumatic Oral: Moist Mucosa Neck: Supple Lungs: Clear to auscultation Cardiovascular: HS I+II, regular, no murmurs Abdomen: Bowel Sounds Present, Soft, Non Tender Extremities: No edema Skin: No rashes, No breakdown Neurological: Grossly intact Psych/Mental Status: Appropriate Results Lab / Micro Data Result Diagrams: 02/21/22 12:13 02/21/22 12:13 Labs: Laboratory Results - last 24 hr 02/21/22 12:13: WBC 3.6 L, RBC 2.45 L, Hgb 8.5 L, Hct 24.0 L, MCV 98.0 H, MCH 34.7 H, MCHC 35.4, RDW Std Deviation 73.2 H, RDW Coeff of Ricardo 21.0 H, Plt Count 94 L, MPV 10.7, Immature Gran % (Auto) 0.600, Neut % (Auto) 21.0 L, Lymph % (Auto) 71.3 H, Castro % (Auto) 5.4, Eos % (Auto) 0.6, Baso % (Auto) 1.1 H, Absolute Neuts (auto) 0.8 L, Absolute Lymphs (auto) 2.53, Nucleated RBC % 0, Differential Comment SCANNED, Reactive Lymphocytes 1+, Platelet Estimate SLT DEC, Anisocytosis 2+, Microcytosis 1+, Macrocytosis 1+ 02/21/22 12:13: Sodium 134 L, Potassium 4.0, Chloride 103, Carbon Dioxide 24.0, Anion Gap 7, BUN 13, Creatinine 0.75, Estim Creat Clear Calc 73.29, Est GFR (MDRD) Af Amer 131, Est GFR (MDRD) Non-Af 108, BUN/Creatinine Ratio 17.3, Glucose 131 H, Calcium 8.4 L, Troponin I High Sens 694 H* Rhythm Strip Rhythm Strip: Sinus Rhythm Rate: 86 Ectopy: None Radiology Impression Chest X-Ray 02/21/22 12:22 IMPRESSION: No acute cardiopulmonary abnormality. No interval change Electronically Signed: Salvador So MD at 12:39 EST , Assessment & Plan Assessment/Plan (1) NSTEMI, initial episode of care: PLAN: Plan 1. Acute NSTEMI, probably secondary to type II Patient without history of CAD but has multiple risk factors Admit to PCU, monitor on telemetry, cardiology consult We will hold off on starting any anticoagulation on account of his pancytopenia Continue on aspirin, statin Recent 2D echo on 02/11/22 showed EF of 45%, moderately dilated left ventricle, posterior, inferior and inferior septal hypokinesis Cardiology consulted; will follow-up on recommendations 2. Neutropenic fever, ANC 800, patient recently had Rituxan infusion on 02/19/22 Chest X-ray on admission was unremarkable Will get blood cultures,will check COVID, UA Continue IV zosyn, Acyclovir, Allupurinol Will trend in am 3. Pancytopenia, counts are improved, will trend labs 4. Hypertension, controlled, continue on amlodipine, atenolol Will check orthostatic vitals 5. Hyperlipidemia, continue on statin 6. Anxiety/depression, continue on Lexapro, Xanax 7. DVT PPx- SCDs 8. I discussed and explained in details the various types of CODE STATUS-full code, DNR CCA, DNR CC. Patient chose to be full code. Time spent discussing CODE STATUS 16 minutes Charges/Coding Visit Charges Inpatient E&M: 82969 Init Hosp L3 Procedures Hospitalists Procedures: 51011 Advncd Care Plan 30 Min
[2022-02-21 14:17] LABS: Reflex Troponin-HS? (from REC) Y
[2022-02-21 14:53] LABS: Troponin-I HS 641 pg/mL (3.0-78.0)
[2022-02-21 15:33] LABS: Magnesium 2.2 mg/dL (1.6-2.6); Phosphorus 3.7 mg/dL (2.5-4.9)
[2022-02-21 15:45] LABS: Color, Urine Yellow (Yellow); Glucose, Dipstick Normal (Normal); Ketone-Dipstick Negative (Negative); Leukocyte Esterase-Dipstick Negative /ul (Negative); Nitrite-Dipstick Negative (Negative); Occult Blood-Urine Negative /ul (Negative); Protein-Dipstick Negative (Negative); Red Blood Cells-Urine 0 SEEN /hpf (0-5); Urine Bilirubin Dipstick Negative (Negative); Urine Clarity Clear (Clear); Urine Urobilinogen Normal (Normal); White Blood Cells 0 SEEN /hpf (0-5)
[2022-02-21 15:54] LABS: Bacteria RARE /hpf (None Seen); Mucous, Urine RARE /hpf (<or=2+); Squamous Epithelial Cells - UA 0-5 SEEN /hpf (0-5)
--- NOTE | 2022-02-21 16:00 | CON.PCM.CA_ITS ---
Assessment & Plan Assessment/Plan (1) Non-ST elevated myocardial infarction: PLAN: The patient presents with a non-ST elevation myocardial infarction. It is not clear whether this is due to plaque rupture or a reaction to his recent helen motherapeutic agents. He however does have segmental wall motion abnormalities noted on a recent echocardiogram as well as the cardiac enzyme abnormality and EKG changes. I would recommend that we treat him with aspirin * Consider left heart catheterization. Risk benefits alternatives have been ex plained to him he understands and agrees to proceed * Continue beta-suha * High intensity statin (2) Hypertension: PLAN: We will continue beta-suha as well as the calcium channel suha at this particular time. We may need to switch him over to an RAI inhibitor. Thank you for allowing me to participate in the care of your patient. Please don't hesitate to call if any issues arise. HPI Consult Data Date of Consult: 02/21/22 HPI Narrative HPI Narrative: CHARLOTTE WHITT, is a 71 M who presents to the emergency room with generalized weakness. He was recently admitted to the hospital from his oncologist office secondary to a reaction to Rituxan infusion.? 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 He was recently also up in [place] to get a COVID antibody infusion and then had a Ritauxan infusion at his oncologist offic e.? He developed shaking and rigors and so was given multiple doses of Demerol and then he developed fever.? Fever was noted is not a common part of her Rituxan infusion reactions over toxin infusion reactions are fairly common especially on the first infusion therefore his oncologist felt that it be prudent for him to come to the ER to be worked up for an infection.? UA and chest x-ray were unremarkable cultures are pending.? He was given multiple fluid boluses as well started on cefepime.? Of note his fibrinogen level is low and his PT is elevated so it is possible he is also having a mild DIC.? He had an echocardiogram performed during that visit and was noted to have a reduced ejection fraction of 45% with segmental wall motion abnormalities noted. He was subsequently discharged home and presented back this afternoon feeling weak and having some chest discomfort and was noted to have EKG changes as well as an abnormal troponin enzyme. 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 Wears glasses Home Medications alprazolam 1 mg tablet (Xanax) 1 mg PO QHS PRN Anxiety 10/03/20 [History Last Taken 02/09/22] amlodipine 5 mg tablet (Norvasc) 5 mg PO DAILY BLOOD PRESSURE 10/03/20 [History Last Taken 02/20/22] atenolol 50 mg tablet (Tenormin) 50 mg PO DAILY BLOOD PRESSURE 10/03/20 [History Last Taken 02/21/22] atorvastatin 20 mg tablet (Lipitor) 20 mg PO QHS cholesterol 10/03/20 [History Last Taken 02/20/22] escitalopram oxalate 10 mg tablet (Lexapro) 30 mg PO DAILY ANXIETY 10/03/20 [History Last Taken 02/20/22] acyclovir 400 mg tablet 400 mg PO BID cancer 02/10/22 [History Last Taken 02/21/22] allopurinol 300 mg tablet 300 mg PO DAILY arthritis 02/10/22 [History Last Taken 02/21/22] folic acid 1 mg tablet 1 mg PO DAILY supplement 02/10/22 [History Last Taken 02/21/22] Allergy/AdvReac Type Severity Reaction Status Date / Time Iodinated Contrast Media Allergy Hives Verified 02/21/22 11:35 Family History Other Diabetes Heart disease Hypertension Surgical History History of ankle surgery History of colonoscopy History of wisdom tooth extraction Social History Smoking Status: Former smoker ROS Constitutional Constitutional: Denies fever(s) or weight loss Eyes Eyes: Reports systems reviewed and no addt'l complaints, except as documented ENT HEENT: Reports systems reviewed and no addt'l complaints, except as documented Cardiovascular Cardiovascular: Reports chest pain at rest, dyspnea at rest and dyspnea on exertion; Denies chest pain with activity, edema, palpitations or paroxysmal nocturnal dyspnea Respiratory/Chest Respiratory/Chest: Denies dyspnea on exertion, productive cough, shortness of breath at rest or shortness of breath with exertion Gastrointestinal Gastrointestinal: Denies change in bowel habits, nausea, vomiting or weight changes Genitourinary Genitourinary: Denies difficulty urinating Musculoskeletal Musculoskeletal: Denies joint stiffness or muscle weakness Integumentary Integumentary: Denies lesions Neurologic Neurologic: Denies dizziness or syncope Psychiatric Psychiatric: Denies anxiety Endocrine Endocrinology: Denies excessive sweating or fatigue Hematologic/Lymphatic Hematologic/Lymphatic: Denies anemia Allergic/Immunologic Allergic/Immunologic: Denies seasonal rhinorrhea Physical Exam Const alert, oriented x3 and no apparent distress General Appearance: cooperative HEENT hearing grossly normal bilaterally Head and Scalp: atraumatic Eyes EOMs intact bilaterally Neck General: normal visual inspection Chest inspection of chest normal and palpation of chest normal Resp normal respiratory effort Auscultation: clear to auscultation bilaterally Cardio regular rate, regular rhythm, S1 normal heart sound and S2 normal heart sound Jugular Venous Distention: JVD GI normal to inspection, nondistended, normoactive bowel sounds Extremity normal capillary refill and no pedal edema Peripheral Pulses: Yes pulses 2+ throughout and femoral pulses present Skin no rashes or lesions noted Neuro oriented x3 and CN's II-XII intact bilaterally Psych Appearance: grossly normal and appropriate Risk Stratification Risk Stratification Applicable: Yes Age >/= 65: Yes >/= 3 CAD Risk Factors (HTN, HLD, DM, family hx of CAD, or current smoker): Yes Aspirin Use in the Past 7 Days: Yes Severe Angina (>/= episodes in 24 hours): No EKG ST Changes >/= 0.5mm: No Positive Cardiac Marker: Yes YASIR Risk Stratification Score: 4 YASIR % Risk: 20% Risk Objective Data Vital Signs: Vital Signs Temp Pulse Resp BP Pulse Ox O2 Del Method 98.0 F 77 16 108/66 96 Room Air 02/21/22 15:05 02/21/22 15:05 02/21/22 15:05 02/21/22 15:05 02/21/22 15:05 02/21/22 15:05 Oxygen Delivery Method Room Air Weight: 213 lb 2.992 oz Body Mass Index (BMI) 28.9 Lab / Micro Data Result Diagrams: 02/21/22 12:13 02/21/22 12:13 Labs: Laboratory Results - last 24 hr 02/21/22 12:13: WBC 3.6 L, RBC 2.45 L, Hgb 8.5 L, Hct 24.0 L, MCV 98.0 H, MCH 34.7 H, MCHC 35.4, RDW Std Deviation 73.2 H, RDW Coeff of Ricardo 21.0 H, Plt Count 94 L, MPV 10.7, Immature Gran % (Auto) 0.600, Neut % (Auto) 21.0 L, Lymph % (Auto) 71.3 H, [place] % (Auto) 5.4, Eos % (Auto) 0.6, Baso % (Auto) 1.1 H, Absolute Neuts (auto) 0.8 L, Absolute Lymphs (auto) 2.53, Nucleated RBC % 0, Differential Comment SCANNED, Reactive Lymphocytes 1+, Platelet Estimate SLT DEC, Anisocytosis 2+, Microcytosis 1+, Macrocytosis 1+ 02/21/22 12:13: Sodium 134 L, Potassium 4.0, Chloride 103, Carbon Dioxide 24.0, Anion Gap 7, BUN 13, Creatinine 0.75, Estim Creat Clear Calc 73.29, Est GFR (MDRD) Af Amer 131, Est GFR (MDRD) Non-Af 108, BUN/Creatinine Ratio 17.3, Glucose 131 H, Calcium 8.4 L, Troponin I High Sens 694 H* 02/21/22 14:22: Troponin I High Sens 641 H* 02/21/22 14:22: Phosphorus 3.7, Magnesium 2.2 02/21/22 15:30: Urine Color Yellow, Urine Clarity Clear, Urine pH 7.0, Ur Specific Pool 1.010, Urine Protein Negative, Urine Glucose (UA) Normal, Urine Ketones Negative, Urine Occult Blood Negative, Urine Nitrite Negative, Urine Bilirubin Negative, Urine Urobilinogen Normal, Ur Leukocyte Esterase Negative, Urine RBC 0 SEEN, Urine WBC 0 SEEN, Ur Squamous Epith Cells 0-5 SEEN, Urine Bacteria RARE, Urine Mucus RARE Rhythm Strip Rhythm Strip: Sinus Rhythm Rate: 86 Ectopy: None Cardiology Labs/Tests 02/21/22 12:13: WBC 3.6 L, RBC 2.45 L, Hgb 8.5 L, Hct 24.0 L, MCV 98.0 H, MCH 34.7 H, MCHC 35.4, Plt Count 94 L, MPV 10.7, Immature Gran % (Auto) 0.600, Neut % (Auto) 21.0 L, Lymph % (Auto) 71.3 H, [place] % (Auto) 5.4, Eos % (Auto) 0.6, Baso % (Auto) 1.1 H, Absolute Neuts (auto) 0.8 L, Nucleated RBC % 0 02/21/22 12:13: Sodium 134 L, Potassium 4.0, Chloride 103, Carbon Dioxide 24.0, Anion Gap 7, BUN 13, Creatinine 0.75, Est GFR (MDRD) Af Amer 131, Est GFR (MDRD) Non-Af 108, BUN/Creatinine Ratio 17.3, Glucose 131 H, Calcium 8.4 L 02/21/22 14:22: Phosphorus 3.7, Magnesium 2.2 02/21/22 15:30: Urine Color Yellow, Urine Clarity Clear, Urine pH 7.0, Ur Specific Pool 1.010, Urine Protein Negative, Urine Glucose (UA) Normal, Urine Ketones Negative, Urine Occult Blood Negative, Urine Nitrite Negative, Urine Jose irubin Negative, Urine Urobilinogen Normal, Ur Leukocyte Esterase Negative, Urine RBC 0 SEEN, Urine WBC 0 SEEN Rhythm: EKG: ECHO: Stress Test: Cardiac Cath: PCI: CT Surgery: Holter monitor: EPS: PPM: CXR: Chest CT Scan: Radiography Diagnostic Testing: Radiology Impression Chest X-Ray 02/21/22 12:22 IMPRESSION: No acute cardiopulmonary abnormality. No interval change Electronically Signed: Salvador So MD at 12:39 EST Reading Location ID and State: [facility] / [place] Tel , Service support ,
[2022-02-21] MEDS: Glucerna Shake 120 ML LIQUID PO (16:05)
--- NOTE | 2022-02-21 18:15 | EKG12_ITS ---
Test Reason : cp Blood Pressure : / mmHG Vent. Rate : 074 BPM Atrial Rate : 074 BPM P-R Int : 150 ms QRS Dur : 102 ms QT Int : 464 ms P-R-T Axes : 046 026 255 degrees QTc Int : 515 ms Normal sinus rhythm Possible Inferior infarct , age undetermined Anterior infarct , age undetermined ST & T wave abnormality, consider lateral ischemia Prolonged QT Abnormal ECG When compared with ECG of 21-FEB-2022 11:44, MANUAL COMPARISON REQUIRED, DATA IS UNCONFIRMED Confirmed by NORAH VALENCIA, DALE ([id number]), editorial clerk ADRIA VIDES ([id number]) on 02/23/2022 9:07:35 AM Referred By: Confirmed By:DALE ALMAZAN MD
[2022-02-21 19:24] LABS: Troponin-I HS 544 pg/mL (3.0-78.0)
[2022-02-21] MEDS: ALPRAZolam 0.5 MG Tablet 1 MG PO (22:18)
[2022-02-21] MEDS: Atorvastatin Calcium 20 MG Tablet PO (22:18)
[2022-02-21] MEDS: Acyclovir 200 MG Capsule 400 MG PO (22:18)
[2022-02-22] VITALS (19 sets, daily range): BP systolic 90–134; BP diastolic 55–77; PULSE 77–93; RESP 16–20; TEMP 36.6–37.1; O2SAT 93–100
--- NOTE | 2022-02-22 04:38 | EKG12_ITS ---
Test Reason : cp Blood Pressure : / mmHG Vent. Rate : 079 BPM Atrial Rate : 079 BPM P-R Int : 148 ms QRS Dur : 106 ms QT Int : 434 ms P-R-T Axes : 049 009 262 degrees QTc Int : 497 ms Normal sinus rhythm Low voltage QRS Inferior infarct , age undetermined , cannot be excluded ST & T wave abnormality, consider anterolateral ischemia Abnormal ECG Confirmed by MUMTAZ VALENCIA, CLARI ([id number]), copy editor ADRIA VIDES ([id number]) on 02/23/2022 11:03:57 AM Referred By: Ryan Confirmed By:CLARI PANDYA MD
--- NOTE | 2022-02-22 05:11 | EKG12_ITS ---
Test Reason : Blood Pressure : / mmHG Vent. Rate : 092 BPM Atrial Rate : 092 BPM P-R Int : 136 ms QRS Dur : 096 ms QT Int : 394 ms P-R-T Axes : 037 019 248 degrees QTc Int : 487 ms Sinus rhythm with Premature atrial complexes Inferior infarct , age undetermined , cannot be excluded ST & T wave abnormality, consider lateral ischemia Abnormal ECG Confirmed by MUMTAZ VALENCIA, CLAIR ([id number]), continuity editor ADRIA VIDES ([id number]) on 02/23/2022 11:05:57 AM Referred By: Teddy Confirmed By:CLARI PANDYA MD
[2022-02-22 05:24] LABS: Absolute Lymphocyte Count 2.62 X10^3/uL (0.83-4.51); Absolute Neutrophil Count 0.8 X10^3/uL (2.0-7.7); Basophil# 0.03 X10^3/uL; Basophil% 0.8 % (0-1); Eosinophil# 0.06 X10^3/uL; Eosinophils% 1.6 % (0-5); Hematocrit 25.3 % (40-54); Hemoglobin 8.3 g/dL (13.0-16.5); Lymphocyte # 2.62 X10^3/ul (0.83-4.51); Lymphocyte % 70.2 % (19-41); Mean Corp Hgb Conc 32.8 g/dL (32-36); Mean Corpuscular Hgb 32.7 pg (27.0-32.0); Mean Corpuscular Volume 99.6 fL (80-94); Mean Platelet Vol. 11.2 fl (6.2-12.0); Monocyte% 5.4 % (0-10); NRBC Flagged by Analyzer 0 % (0-5); Neutrophil # 0.79 X10^3/uL (2.7-7.7); Neutrophil % 21.2 % (47-70); POSITIVE DIFFERENTIAL YES; POSITIVE MORPHOLOGY YES; Platelet Count 100 K/mm3 (150-450); RBC Distribution Width CV 21.2 % (11.6-14.6); RBC Distribution Width SD 75.3 fl (35.1-43.9); Red Blood Count 2.54 M/mm3 (4.6-6.2); White Blood Count 3.7 K/mm3 (4.4-11.0)
[2022-02-22 05:28] LABS: Differential Indicated SCAN CRITERIA MET
[2022-02-22 06:18] LABS: ALB/GLOB Ratio 1.2 RATIO (0.9-2.4); AST(SGOT) 28 U/L (15-37); Alanine Aminotransfer ALT/SGPT 17 U/L (16-61); Alkaline Phosphatase 71 U/L (45-117); Anion Gap 8 (5-15); BUN 9 mg/dL (7-18); BUN/Creat Ratio 12.5 RATIO (10-20); Chloride 100 mmol/L (98-107); Creatinine, Serum 0.72 mg/dL (0.70-1.30); EST Glomerular Filtration Rate 114 mL/min (>60); Est Glom Filt Rate - Afr Amer 137 mL/min (>60); Estimated Creatinine Clearance 73.29 ml/min; Globulin 2.5 g/dL (2.2-4.2); Glucose 99 mg/dL (74-106); Potassium 3.9 mmol/L (3.5-5.1); Protein, Total 5.5 g/dL (6.4-8.2); Sodium Level 132 mmol/L (136-145)
[2022-02-22] MEDS: amLODIPine 5 MG Tablet PO (06:38)
[2022-02-22] MEDS: Atenolol 50 MG Tablet PO (06:38)
[2022-02-22 07:01] LABS: Anisocytosis 2+; Macrocytosis 1+; Platelet Estimate SLT DEC (ADEQ)
[2022-02-22 07:02] LABS: Microcytosis RARE
--- NOTE | 2022-02-22 09:04 | PN.CARD_ITS ---
Subjective Subjective Patient seen and evaluated. Underwent cardiac catheterization today Objective Data Vital Signs: Vital Signs Temp Pulse Resp BP Pulse Ox O2 Del Method 98.3 F 83 18 118/65 97 Room Air 02/22/22 06:37 02/22/22 07:03 02/22/22 06:37 02/22/22 06:37 02/22/22 06:37 02/22/22 06:37 Oxygen Delivery Method Room Air Weight: 214 lb 8.156 oz Body Mass Index (BMI) 28.9 Intake & Output: Intake and Output for Last 24 Hours 02/20/22 02/21/22 02/22/22 23:59 23:59 23:59 Intake Total 530 / 530 75 / 75 Output Total 250 / 250 600 / 600 Balance 280 / 280 -525 / -525 Lab / Micro Data Result Diagrams: 02/22/22 04:20 02/22/22 04:20 Labs: Laboratory Results - last 24 hr 02/21/22 12:13: WBC 3.6 L, RBC 2.45 L, Hgb 8.5 L, Hct 24.0 L, MCV 98.0 H, MCH 34.7 H, MCHC 35.4, RDW Std Deviation 73.2 H, RDW Coeff of Ricardo 21.0 H, Plt Count 94 L, MPV 10.7, Immature Gran % (Auto) 0.600, Neut % (Auto) 21.0 L, Lymph % (Auto) 71.3 H, [place] % (Auto) 5.4, Eos % (Auto) 0.6, Baso % (Auto) 1.1 H, Absolute Neuts (auto) 0.8 L, Absolute Lymphs (auto) 2.53, Nucleated RBC % 0, Differential Comment SCANNED, Reactive Lymphocytes 1+, Platelet Estimate SLT DEC, Anisocytosis 2+, Microcytosis 1+, Macrocytosis 1+ 02/21/22 12:13: Sodium 134 L, Potassium 4.0, Chloride 103, Carbon Dioxide 24.0, Anion Gap 7, BUN 13, Creatinine 0.75, Estim Creat Clear Calc 73.29, Est GFR (MDRD) Af Amer 131, Est GFR (MDRD) Non-Af 108, BUN/Creatinine Ratio 17.3, Glucose 131 H, Calcium 8.4 L, Troponin I High Sens 694 H* 02/21/22 14:22: Troponin I High Sens 641 H* 02/21/22 14:22: Phosphorus 3.7, Magnesium 2.2 02/21/22 15:30: Urine Color Yellow, Urine Clarity Clear, Urine pH 7.0, Ur Specific [place] 1.010, Urine Protein Negative, Urine Glucose (UA) Normal, Urine Ketones Negative, Urine Occult Blood Negative, Urine Nitrite Negative, Urine Bilirubin Negative, Urine Urobilinogen Normal, Ur Leukocyte Esterase Negative, Urine RBC 0 SEEN, Urine WBC 0 SEEN, Ur Squamous Epith Cells 0-5 SEEN, Urine Winston teria RARE, Urine Mucus RARE 02/21/22 18:30: Troponin I High Sens 544 H* 02/22/22 04:20: WBC 3.7 L, RBC 2.54 L, Hgb 8.3 L, Hct 25.3 L, MCV 99.6 H, MCH 32.7 H, MCHC 32.8 D, RDW Std Deviation 75.3 H, RDW Coeff of Ricardo 21.2 H, Plt Count 100 L, MPV 11.2, Immature Gran % (Auto) 0.800, Neut % (Auto) 21.2 L, Lymph % (Auto) 70.2 H, [place] % (Auto) 5.4, Eos % (Auto) 1.6, Baso % (Auto) 0.8, Absolute Neuts (auto) 0.8 L, Absolute Lymphs (auto) 2.62, Nucleated RBC % 0, Platelet Estimate SLT DEC, Anisocytosis 2+, Microcytosis RARE, Macrocytosis 1+ 02/22/22 04:20: Sodium 132 L, Potassium 3.9, Chloride 100, Carbon Dioxide 24.0, Anion Gap 8, BUN 9, Creatinine 0.72, Estim Creat Clear Calc 73.29, Est GFR (MDRD) Af Amer 137, Est GFR (MDRD) Non-Af 114, BUN/Creatinine Ratio 12.5, Glucose 99, Calcium 8.0 L, Total Bilirubin 1.50 H, AST 28, ALT 17, Alkaline Phosphatase 71, Total Protein 5.5 L, Albumin 3.0 L, Globulin 2.5, Albumin/Globulin Ratio 1.2 Micro: Microbiology 02/21/22 15:30 Nasal Secretion SARS-CoV-2 Antigen (Rapid) - Final Rhythm Strip Rhythm Strip: Sinus Rhythm Rate: 86 Ectopy: None Cardiology Labs/Tests 02/21/22 12:13: WBC 3.6 L, RBC 2.45 L, Hgb 8.5 L, Hct 24.0 L, MCV 98.0 H, MCH 34.7 H, MCHC 35.4, Plt Count 94 L, MPV 10.7, Immature Gran % (Auto) 0.600, Neut % (Auto) 21.0 L, Lymph % (Auto) 71.3 H, [place] % (Auto) 5.4, Eos % (Auto) 0.6, Baso % (Auto) 1.1 H, Absolute Neuts (auto) 0.8 L, Nucleated RBC % 0 02/21/22 12:13: Sodium 134 L, Potassium 4.0, Chloride 103, Carbon Dioxide 24.0, Anion Gap 7, BUN 13, Creatinine 0.75, Est GFR (MDRD) Af Amer 131, Est GFR (MDRD) Non-Af 108, BUN/Creatinine Ratio 17.3, Glucose 131 H, Calcium 8.4 L 02/21/22 14:22: Phosphorus 3.7, Magnesium 2.2 02/21/22 15:30: Urine Color Yellow, Urine Clarity Clear, Urine pH 7.0, Ur S pecific [place] 1.010, Urine Protein Negative, Urine Glucose (UA) Normal, Urine Ketones Negative, Urine Occult Blood Negative, Urine Nitrite Negative, Urine Bilirubin Negative, Urine Urobilinogen Normal, Ur Leukocyte Esterase Negative, Urine RBC 0 SEEN, Urine WBC 0 SEEN 02/22/22 04:20: WBC 3.7 L, RBC 2.54 L, Hgb 8.3 L, Hct 25.3 L, MCV 99.6 H, MCH 3 2.7 H, MCHC 32.8 D, Plt Count 100 L, MPV 11.2, Immature Gran % (Auto) 0.800, Neut % (Auto) 21.2 L, Lymph % (Auto) 70.2 H, [place] % (Auto) 5.4, Eos % (Auto) 1.6, Baso % (Auto) 0.8, Absolute Neuts (auto) 0.8 L, Nucleated RBC % 0 02/22/22 04:20: Sodium 132 L, Potassium 3.9, Chloride 100, Carbon Dioxide 24.0, Anion Gap 8, BUN 9, Creatinine 0.72, Est GFR (MDRD) Af Amer 137, Est GFR (MDRD) Non-Af 114, BUN/Creatinine Ratio 12.5, Glucose 99, Calcium 8.0 L, Total Bilirubin 1.50 H Rhythm: EKG: ECHO: Stress Test: Cardiac Cath: PCI: CT Surgery: Holter monitor: EPS: PPM: CXR: Chest CT Scan: Radiography Diagnostic Testing: Radiology Impression Chest X-Ray 02/21/22 12:22 IMPRESSION: No acute cardiopulmonary abnormality. No interval change Electronically Signed: Salvador So MD at 12:39 EST , Physical Exam Const alert, oriented x3 and no apparent distress General Appearance: cooperative HEENT hearing grossly normal bilaterally Head and Scalp: atraumatic Eyes EOMs intact bilaterally Neck General: normal visual inspection Chest inspection of chest normal and palpation of chest normal Resp normal respiratory effort Auscultation: clear to auscultation bilaterally Cardio regular rate, regular rhythm, S1 normal heart sound and S2 normal heart sound Jugular Venous Distention: JVD GI normal to inspection, nondistended, normoactive bowel sounds Extremity normal capillary refill and no pedal edema Peripheral Pulses: Yes pulses 2+ throughout and femoral pulses present Skin no rashes or lesions noted Neuro oriented x3 and CN's II-XII intact bilaterally Psych Appearance: grossly normal and appropriate Assessment & Plan Assessment/Plan (1) Non-ST elevated myocardial infarction: PLAN: The patient presents with a non-ST elevation myocardial infarction. It is not clear whether this is due to plaque rupture or a reaction to his recent c hemotherapeutic agents. He however does have segmental wall motion abnormalities noted on a recent echocardiogram as well as the cardiac enzyme abnormality and EKG changes. Cardiac catheterization today demonstrated the following. Mild left main coronary disease. Calcified left anterior descending artery with mild diffuse disease. Calcified left circumflex artery with high-grade proximal 95% stenosis. Calcified right coronary artery with totally occluded vessel in the midsegment. Left to right collaterals noted. Reduced left ventricular systolic function with akinetic inferobasal wall and h ypokinetic mid inferior wall and global hypokinesis noted. Estimated ejection fraction 30%. Based on the above angiographic findings would consider PCI to the left circumflex artery. The above has been discussed with the interventionalists. If need be would consider blood transfusion postprocedure. (2) Hypertension: PLAN: We will continue beta-suha as well as the calcium channel suha at this particular time. We may need to switch him over to an RAI inhibitor. Thank you for allowing me to participate in the care of your patient. Please don't hesitate to call if any issues arise.
--- NOTE | 2022-02-22 10:15 | CL.I_ITS ---
Patient Name: CHARLOTTE WHITT Study Date: 02/22/2022 Performing: Tayler Saenz MD Ht: 72 inches 182.88 cm : 1950 Wt: 214.51 lbs 97.3 kg Age: 71 Gender: male BSA: 2.19 PROCEDURE(S) PERFORMED IC12-(15187/[id number])MAMTA W/WO PTCA, SINGLE CORONARY ARTERY CLINICAL PROFILE AND CO-MORBIDITIES Indications: Suspected CAD Heart Failure: None Stress/Imaging Stress/Image Study Performed: No CONCLUSIONS Unsuccessful PCI of the Prox LCX. Unable to cross heavily calciied lesion with balloon. RECOMMENDATIONS Refer for PCI attempt with rotational atherectomy DESCRIPTION OF PROCEDURE The patient arrived to the procedure lab. The risks and benefits of the procedure as well as a full description of our services here and current unavailability of surgical backup were fully explained to the patient and/or their significant other prior to the catheterization. The Timeout was completed, verifying the correct patient and procedure. The patient's procedural site was prepped and draped in the usual fashion. Local anesthetic was given subcutaneously to right radial region with Lidocaine 2% Using a modified Seldinger technique,arterial access was obtained via the right radial artery, a 6Fr sheath was inserted. Left Coronary Artery selective angiography was performed in multiple views using a 5 Fr. 4.0 [place] catheter. Right Coronary Artery selective angiography was then performed in multiple views using a 5 Fr. 4.0 [place] catheter. Left Ventriculography was performed in FIELD projection using a 5 Fr. Pig[place] catheter. LV to AO pullback pressures were then recorded.The images were reviewed and options discussed. A decision was then made to proceed with an Intervention, IVUS or other adjunct procedure. runthrough Guide wire was advanced to the Circumflex. xb 3.5 Guide catheter was inserted and engaged into the LCA. The arterial sheath was pulled and a TR Band was applied for hemostasis INTERVENTION INFORMATION LESION SITE: Circumflex (Proximal) Lesion Complexity: High/C, culprit lesion: Yes, lesion length: 15 mm Pre Stenosis: 90 % Pre intervention YASIR flow: 3 PROCEDURE: Attempted PTCA/Stent Post Stenosis: 95 % Post intervention YASIR flow: 3 Lesion Devices: Cordis 6 Fr XB3.5 100cm Guide Catheter Terumo .014 Runthrough Extra Floppy 180cm straight Cordis 6 Fr XB3.0 100cm Guide Catheter [employer] Shockwave IVL cable sleeve [employer] Shockwave IVL 2.5x12 Rakesh Sci EMERGE MR 2.50x12 BALLOON COMPLICATIONS No Complications PROCEDURE MEDICATIONS Versed .5 mg IV Fentanyl 25 mcg IV Fentanyl 25 mcg IV Baby Aspirin (81mg) 1 Tabs PO 02/22/2022 08:13:21 Benadryl 25 mg IV 02/22/2022 08:13:41 Brilinta 180 mg PO @ 02/22/2022 09:00:49 Heparin 3000 unit(s) IC 02/22/2022 08:34:42 Heparin 7000 unit(s) IV 02/22/2022 09:05:38 Heparin 2000 unit(s) IV 02/22/2022 09:20:50 Solu-cortef 100 mg IV 02/22/2022 08:13:33 SUMMARY OF HEMODYNAMIC DATA Time AIR REST ECG 08:10:56 AO 97/48 (67) SA 08:35:33 LV 97/-2, 16 08:46:34 LV 97/0, 17 08:46:43 LV 88/-1, 15 08:47:29 LV 88/0, 15 08:47:37 LVp 91/1, 18 08:47:42 AOp 93/30 (58) 08:47:49 11:12:08 Signed By Tayler Saenz MD On 02/22/2022 11:15:22 Tayler Saenz MD
[2022-02-22] MEDS: Escitalopram Oxalate 10 MG Tablet 30 MG PO (10:39)
[2022-02-22] MEDS: Allopurinol 300 MG Tablet PO (11:07)
[2022-02-22] MEDS: Folic Acid 1 MG Tablet PO (11:08)
[2022-02-22] MEDS: Acyclovir 200 MG Capsule 400 MG PO (11:08)
[2022-02-22] MEDS: Glucerna Shake 120 ML LIQUID PO (11:08)
--- NOTE | 2022-02-22 11:14 | CL.D_ITS ---
Patient Name: CHARLOTTE WHITT Study Date: 02/22/2022 Performing: Jeremy León MD Ht: 72 inches 182.88 cm : 1950 Wt: 214.51 lbs 97.3 kg Age: 71 Gender: male BSA: 2.19 PROCEDURE(S) PERFORMED DC01-(53818)LHC/COR/LV IC12-(90641/C9600)MAMTA W/WO PTCA, SINGLE CORONARY ARTERY CLINICAL PROFILE AND INDICATIONS Indications: Suspected CAD Heart Failure: None Stress/Imaging Stress/Image Study Performed: No CONCLUSIONS Severe two-vessel disease with calcified coronary arteries high-grade left circumflex artery and a totally occluded right coronary artery with [id number] collaterals. Reduced left ventricular systolic function RECOMMENDATIONS Referred for immediate PCI DESCRIPTION OF PROCEDURE The patient arrived to the procedure lab. The risks and benefits of the procedure as well as a full description of our services here and current unavailability of surgical backup were fully explained to the patient and/or their significant other prior to the catheterization. The Timeout was completed, verifying the correct patient and procedure. The patient's procedural site was prepped and draped in the usual fashion. Local anesthetic was given subcutaneously to right radial region with Lidocaine 2%. Using a modified Seldinger technique, arterial access was obtained via the right radial artery, a 6Fr sheath was inserted. Left Coronary Artery selective angiography was performed in multiple views using a 5 Fr. 4.0 Newton catheter. Right Coronary Artery selective angiography was then performed in multiple views using a 5 Fr. 4.0 Newton catheter. Left Ventriculography was performed in FIELD projection using a 5 Fr. Pigtail catheter. LV to AO pullback pressures were then recorded.The arterial sheath was pulled and a TR Band was applied for hemostasis CORONARY ANGIOGRAPHY DOMINANCE: Right Dominant LEFT HEART ASSESSMENT Left Ventricular Ejection Fraction: by LV Gram 30 % Inferior Basal Akinesis. Inferior Mid Hypokinesis - Severe. Global Hypokinesis - Moderate Depressed Left Ventricular systolic function LEFT MAIN: Mild calcification, 30% stenosis LEFT ANTERIOR DESCENDING ARTERY: Moderate calcification, Diffuse mild disease noted also involving the first and second diagonal vessels. No high-grade stenosis present. CIRCUMFLEX ARTERY: Calcified vessel with proximal 95% stenosis noted in left to right collaterals RIGHT CORONARY ARTERY: MID RCA: is occluded COLLATERAL FLOW: Collateral flow from Left to Right COMPLICATIONS No Complications PROCEDURE MEDICATIONS Versed .5 mg IV Fentanyl 25 mcg IV Fentanyl 25 mcg IV Baby Aspirin (81mg) 1 Tabs PO 02/22/2022 08:13:21 Benadryl 25 mg IV 02/22/2022 08:13:41 Brilinta 180 mg PO @ 02/22/2022 09:00:49 Heparin 3000 unit(s) IC 02/22/2022 08:34:42 Heparin 7000 unit(s) IV 02/22/2022 09:05:38 Heparin 2000 unit(s) IV 02/22/2022 09:20:50 Solu-cortef 100 mg IV 02/22/2022 08:13:33 SUMMARY OF HEMODYNAMIC DATA Time AIR REST ECG 08:10:56 AO 97/48 (67) SA 08:35:33 LV 97/-2, 16 08:46:34 LV 97/0, 17 08:46:43 LV 88/-1, 15 08:47:29 LV 88/0, 15 08:47:37 LVp 91/1, 18 08:47:42 AOp 93/30 (58) 08:47:49 11:12:08 Signed By Jeremy León MD On 02/22/2022 11:13:55 Jeremy León MD
[2022-02-22] MEDS: ALPRAZolam 0.5 MG Tablet 1 MG PO (11:53)
--- NOTE | 2022-02-22 17:14 | PN.HOSP_ITS ---
Subjective Subjective Patient was seen and examined today, he states he is feeling very nervous, he underwent a cardiac catheterization this morning which showed occlusive disease in 2 vessels-the RCA which was 100% and the circumflex artery which was 95%. An attempt was made to place a stent in the circumflex artery but this was unsuc cessful and it was recommended that the patient be transferred to another hospital for rotablation. I contacted [facility][1] which was the hospital the patient preferred, they accepted the patient but they had no active beds, I explained this to the patient and his . At the time of this dictation, patient is having no chest discomfort. Objective Data Objective Data Vital Signs: Vital Signs Temp Pulse Resp BP Pulse Ox O2 Del Method 98.7 F 84 16 97/59 L 97 Room Air 02/22/22 15:10 02/22/22 15:10 02/22/22 15:10 02/22/22 15:10 02/22/22 15:10 02/22/22 15:10 Oxygen Delivery Method Room Air Weight: 97.3 kg Body Mass Index (BMI) 28.9 Intake & Output: Intake and Output for Last 24 Hours 02/20/22 02/21/22 02/22/22 23:59 23:59 23:59 Intake Total 530 / 530 500 / 500 Output Total 250 / 250 600 / 600 Balance 280 / 280 -100 / -100 Lab / Micro Data Result Diagrams: 02/22/22 04:20 02/22/22 04:20 Labs: Laboratory Results - last 24 hr 02/21/22 18:30: Troponin I High Sens 544 H* 02/22/22 04:20: WBC 3.7 L, RBC 2.54 L, Hgb 8.3 L, Hct 25.3 L, MCV 99.6 H, MCH 32.7 H, MCHC 32.8 D, RDW Std Deviation 75.3 H, RDW Coeff of Ricardo 21.2 H, Plt Count 100 L, MPV 11.2, Immature Gran % (Auto) 0.800, Neut % (Auto) 21.2 L, Lymph % (Auto) 70.2 H, [place] % (Auto) 5.4, Eos % (Auto) 1.6, Baso % (Auto) 0.8, Absolute Neuts (auto) 0.8 L, Absolute Lymphs (auto) 2.62, Nucleated RBC % 0, Platelet Estimate SLT DEC, Anisocytosis 2+, Microcytosis RARE, Macrocytosis 1+ 02/22/22 04:20: Sodium 132 L, Potassium 3.9, Chloride 100, Carbon Dioxide 24.0, Anion Gap 8, BUN 9, Creatinine 0.72, Estim Creat Clear Calc 73.29, Est GFR (MDRD) Af Amer 137, Est GFR (MDRD) Non-Af 114, BUN/Creatinine Ratio 12.5, Glucose 99, Calcium 8.0 L, Total Bilirubin 1.50 H, AST 28, ALT 17, Alkaline Phosphatase 71, Total Protein 5.5 L, Albumin 3.0 L, Globulin 2.5, Albumin/Globulin Ratio 1.2 Micro: Microbiology 02/21/22 15:30 Nasal Secretion SARS-CoV-2 Antigen (Rapid) - Final Rhythm Strip Rhythm Strip: Sinus Rhythm Rate: 86 Ectopy: None Physical Exam Const alert, oriented x3, no apparent distress and healthy appearing General Appearance: cooperative, well kempt and well developed Orientation / Consciousness: awake, oriented to person, oriented to place and oriented to time HEENT normocephalic and moist oral mucous membranes Eyes PERRL, EOMs intact bilaterally and conjunctivae normal Neck supple, no JVD, thyroid normal and no carotid bruits General: trachea midline Resp normal respiratory effort, no retractions, no use of accessory muscles and clear to auscultation bilaterally Auscultation: Negative for rales, rhonchi or wheezes Cardio regular rate, regular rhythm, S1 normal heart sound, S2 normal heart sound, no murmurs, no rub and no gallops GI normal to inspection, nondistended, normoactive bowel sounds, soft to palpation, non-tender and non-distended Extremity no clubbing, cyanosis or edema Skin no rashes or lesions noted General Skin Exam: no breakdown Neuro oriented x3, CN's II-XII intact bilaterally, moves all extremities, no focal motor deficits and no sensory deficits noted Sensorium / Orientation: awake and alert Speech: speech normal Psych affect normal Assessment & Plan Assessment/Plan (1) NSTEMI, initial episode of care: PLAN: Plan 1. Non-STEMI type II-continue present medications, again patient is on a list to be transferred to [facility][1] in [facility] for further care. 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
--- NOTE | 2022-02-22 19:19 | PCM.DC.SUM ---
Providers Date of Admission: 02/21/22 Date of Discharge: 02/22/22 Primary Care Physician: Dr. Davion Lanier MD Reason For Visit: ACUTE NSTEMI Diagnosis Discharge Diagnosis (1) NSTEMI, initial episode of care: Status: Acute Code(s): I21.4 - Non-ST elevation (NSTEMI) myocardial infarction Plan 1. Non-STEMI type II-continue present medications, again patient is on a list to be transferred to [facility] in [facility] for further care. 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-complicates care, management, recovery, and prognosis #4 pancytopenia-platelet count today was 100,000, his hemoglobin has remained stable, his white blood cell count is stable #5 chronic anxiety-patient is on Xanax and Lexapro #6 essential hypertension-patient remains on his present medication #7 hyperlipidemia-patient is on Lipitor Medications at Discharge Home Medications alprazolam 1 mg tablet (Xanax) 1 mg PO QHS PRN Anxiety 10/03/20 amlodipine 5 mg tablet (Norvasc) 5 mg PO DAILY BLOOD PRESSURE 10/03/20 atenolol 50 mg tablet (Tenormin) 50 mg PO DAILY BLOOD PRESSURE 10/03/20 atorvastatin 20 mg tablet (Lipitor) 20 mg PO QHS cholesterol 10/03/20 escitalopram oxalate 10 mg tablet (Lexapro) 30 mg PO DAILY ANXIETY 10/03/20 acyclovir 400 mg tablet 400 mg PO BID cancer 02/10/22 allopurinol 300 mg tablet 300 mg PO DAILY arthritis 02/10/22 folic acid 1 mg tablet 1 mg PO DAILY supplement 02/10/22 Hospital Course Operations None Procedures Cardiac catheterization Summary of Care Provided Minutes Spent on Discharge: 31 Hospital Course: 21-year-old white male was seen in the emergency room at [facility] with complaints of chest pain. Chest pain was substernal in location, did not radiate into the neck jaw or back. Patient has some tingling in his right arm. Work-up in the emergency room included labs which showed a hemoglobin of 8.5, white blood cell count was 3.6, and platelet count was 94,000. Troponin was found to be elevated at 694, chest x-ray showed chronic changes with no acute process. EKG revealed normal sinus rhythm without evidence of injury pattern. Patient was admitted to PCU for non-ST elevation OH, he was seen in consultation with cardiology and placed on aspirin and a statin, he was placed on IV Zosyn, acyclovir, and allopurinol due to concerns of neutropenic fever. This examiner did not note that the patient was actually running a temperature however. Cardiac catheterization performed showed occlusive coronary disease, an attempt was made to place a stent in the circumflex artery but it was too calcified and the patient needed to be referred to a tertiary facility for Rotablator treatment. On 02/22/2022, patient was seen and examined: On examination he appeared in good health and spirits. Vital signs as documented. Skin warm and dry and without overt rashes. Neck without JVD, neck was supple, trachea midline, thyroid was normal. Lungs clear bilaterally, normal air movement was noted. Heart exam notable for regular rhythm, normal sounds and absence of murmurs, rubs or gallops. Abdomen unremarkable and without evidence of organomegaly, masses, or abdominal aortic enlargement. Bowel sounds are present, abdomen is not distended. Extremities nonedematous, no cyanosis was noted, no clubbing was noted. Neuro: Cranial nerves II through XII are grossly intact, no focal motor deficits were noted, sensation to light touch and pinprick intact, motor exam 5/5 throughout. Psych: Patient is alert and oriented x3, he does not appear anxious or depressed, he does not appear agitated. Patient was transferred to [facility] on 02/22/2022 in stable condition for further treatment. Weight / BMI Weight Weight: 97.3 kg Body Mass Index (BMI) 28.9 ABG / Lab / Microbiology Data Result Diagrams: 02/22/22 04:20 02/22/22 04:20 Laboratory: Laboratory Results - last 24 hr 02/21/22 18:30: Troponin I High Sens 544 H* 02/22/22 04:20: WBC 3.7 L, RBC 2.54 L, Hgb 8.3 L, Hct 25.3 L, MCV 99.6 H, MCH 32.7 H, MCHC 32.8 D, RDW Std Deviation 75.3 H, RDW Coeff of Ricardo 21.2 H, Plt Count 100 L, MPV 11.2, Immature Gran % (Auto) 0.800, Neut % (Auto) 21.2 L, Lymph % (Auto) 70.2 H, [place] % (Auto) 5.4, Eos % (Auto) 1.6, Baso % (Auto) 0.8, Absolute Neuts (auto) 0.8 L, Absolute Lymphs (auto) 2.62, Nucleated RBC % 0, Platelet Estimate SLT DEC, Anisocytosis 2+, Microcytosis RARE, Macrocytosis 1+ 02/22/22 04:20: Sodium 132 L, Potassium 3.9, Chloride 100, Carbon Dioxide 24.0, Anion Gap 8, BUN 9, Creatinine 0.72, Estim Creat Clear Calc 73.29, Est GFR (MDRD) Af Amer 137, Est GFR (MDRD) Non-Af 114, BUN/Creatinine Ratio 12.5, Glucose 99, Calcium 8.0 L, Total Bilirubin 1.50 H, AST 28, ALT 17, Alkaline Phosphatase 71, Total Protein 5.5 L, Albumin 3.0 L, Globulin 2.5, Albumin/Globulin Ratio 1.2 Microbiology: Microbiology 02/21/22 15:30 Nasal Secretion SARS-CoV-2 Antigen (Rapid) - Final Meaningful Use Info Meaningful Use Diagnoses (Choose all that apply): AMI AMI/Post PCI/Angioplasty Aspirin given w/in 24hrs of arrival?: Yes ASA at discharge?: Yes Antiplatelet Therapy at Discharge:: Yes Statins at discharge?: Yes Jesus/ARB at discharge?: No Reason Jesus/ARB not ordered:: Not indicated (Patient transferred to tertiary hospital) Beta Robin at discharge?: Yes Done w/ Acute OH measure.: Yes Documented LVEF (%): 30 Discharge Plan Admission Admit Date/Time: 02/21/22 13:06 Attending Provider: Yonatan Squires Primary Care Provider: Davion Lanier Consulting Providers: Naomi Espinal Discharge Orders/Prescriptions Prescriptions: No Action atorvastatin [Lipitor] 20 mg Tablet 20 mg PO QHS alprazolam [Xanax] 1 mg Tablet 1 mg PO QHS PRN (Reason: Anxiety) amlodipine [Norvasc] 5 mg Tablet 5 mg PO DAILY atenolol [Tenormin] 50 mg Tablet 50 mg PO DAILY escitalopram oxalate [Lexapro] 10 mg Tablet 30 mg PO DAILY acyclovir 400 mg tablet 400 mg PO BID Label Comments: TAKE 1 TABLET BY MOUTH TWICE A DAY folic acid 1 mg tablet 1 mg PO DAILY allopurinol 300 mg tablet 300 mg PO DAILY Label Comments: TAKE 1 TABLET BY MOUTH EVERY DAY Referrals / Follow Up: Davion Lanier MD [Primary Care Provider] - Disposition Disposition (needs filled in before D/C Order can be placed): Acute Care Hospital Charges/Coding Visit Charges Inpatient E&M: 17812 Disch Hosp
== END 2022-02-22 20:45 | disposition short-term general hospital (02) | DRG 808 ==
LOC: ED 13:20 → PCU 14:11
PROVIDERS: Admitting Provider Internal Medicine; Emergency Provider Emergency Medicine; PCP Internal Medicine; Visit Provider Internal Medicine
DX: D70.9 Neutropenia, unspecified (principal); I21.A1 Myocardial infarction type 2; C91.Z0 Other lymphoid leukemia not having achieved remission; D61.810 Antineoplastic chemotherapy induced pancytopenia; E78.00 Pure hypercholesterolemia, unspecified; I10 Essential (primary) hypertension; I25.10 Atherosclerotic heart disease of native coronary artery without angina pectoris; F41.9 Anxiety disorder, unspecified; I25.82 Chronic total occlusion of coronary artery; Z79.82 Long term (current) use of aspirin; R07.9 Chest pain, unspecified; R50.81 Fever presenting with conditions classified elsewhere; Z87.891 Personal history of nicotine dependence; F32.A Depression, unspecified; T45.1X5A Adverse effect of antineoplastic and immunosuppressive drugs, initial encounter
CPT/HCPCS: 36415; 71045; 80048; 80053; 81001; 83735; 84100; 84484; 85025; 87040; 87426; 92928; 93005; 93458; 97802; 99152; 99153; 99285; Q9967; C1725; C1769; C1887; C1894; C9600

== ENCOUNTER → 2022-07-07 | Outpatient (CLI) | payer MEDICARE, OTHER, SELFPAY ==
--- NOTE | 2022-07-07 13:01 | CR.ITP_ITS ---
Diagnosis - General Information Admitting Diagnosis: NSTEMI, PCI W/CORONARY STENTING Personal Learning Style:: Audio/Visual, Written Barriers to Learning: Vision Impairment Stage of change r/t lifestyle modifications:: Action Gave educational material for:: Treating Heart Disease, Emotions & Heart Disease, Stress Management & Relaxation, Sleep Disorders & Heart Disease, How The Heart Works, What it means to have Heart Disease, How Coronary Artery Disease is Diagnosed, Heart Procedures, What Heart Medications Do, Risk Factors & Modifications, Living an Active Life, Nutrition - Education/Goals Individual Counseling: Initial Assessment: Abnormal Cholesterol Levels, High Blood Pressure Cardiac Rehabilitation Goals: 1. Maintain the individual as the primary focus of care. 2. To improve the patient's quality of life. 3. Identification of cardiac risk factors and provide cardiac risk factor management. 4. Enhance the psychosocial status of the patient. 5. Reconditioning enough to allow the patient to resume customary activities. 6. Control symptoms of cardiac disease Personal Goals: Initial Assessment: Improve energy level, Participate in home exercise program, Get back to work, or to resume activities faster, Improve muscle strength and endurance, Control risk factors (learn risk factor modification) Scale for measuring improvement of personal goals: Enter appropriate number in Comments. 2 = Unchanged. 3 = Slightly Better. 4 = Moderate Improvement. 5 = Met my Goal - Diagnosis & Disease Process Outcomes/Goals: Pt IDs own risk factors & lifestyle modifications by Session 10, Verbalizes symptoms of angina & response by session 3., Pt independently manages Plan/Interventions: Assist Pt to ID & engage in lifestyle modification to reduce CVD risk, Instruct on individual risk factors, Review symptoms of angina & heidi rgency actions, Review secondary diagnosis & identify educational needs. - Safety Referral to Physical Therapy: No Referral to [facility] Case Management: No Fall Risk Assessed:: Yes Assistive Devices:: None Exercise - Initial Assessment - Visit Date of Eval: 07/07/22 Session #:: 0 - pRE-cr EVALUATION Mets: Pre-: >7 METS for 30 minutes by discharge - Physician Prescribed Exercise Modalities: Treadmill, Airdyne, NuStep Frequency: 3x/week for 12 weeks [36 sessions] Intensity: 60-80% of age predicted maximum heart rate reserve Duration: 30 - 45 minutes Current METSs:: 3.0 Target Heart Rate:: 94-109 Resting Blood Pressure: 126/76 - Outcomes & Goals Goals:: Verbalizes understanding of THR, RPE & goal METS by session 6, Documents in home exercise log/reports 30 min aerobic 5 day/wk by DC, Demonstrates accurate pulse taking by DC - Intervention & Plan Exercise Program Goals: Instruct on personal THR & RPE, Instruct on MET level & personal MET goal, Show patient to take own pulse /validate performance until accurate, Instruct on home exercise - Physical Activity Home Exercise Physical Activity - Home Exercise: Safe Exercise, Warm-up, Self-monitoring, Cool-Down, Home Exercise > 30 min Daily, Sitting Time <3 hours/daily - Outcomes & Goals Outcomes/Goals: Demonstrates correct Warm-up/exercise Cool-Down (S3) if = 2.5 METs, Verbalizes symptoms of exercise intolerance by Session 3 (S3), Demonstrate safe equipment use (S3) & follows exercise prescrition (6) - Intervention & Plan Plan/Intervention: Instruct warm-up & cool-down if exercising at > 2 METs, Instruct on symptoms of exercise intolerance & actions to take, Instruct & monitor on saf, Assess intial functional capacity & safety risk Nutrition - Initial Assessment - Program Goals Nutrition Program Goals: LDL <100 optimal. 100 - 129 Near optimal. 130 - 159 Borderline High. 160 - 189 High. Total Cholesterol <200 desirable. 200 - 239 Borderline High. >/= 240 High. HDL < 40 Low >/=60 High. Triglycerides <150 desirable. <199 optimal. VlDL 5 - 40. HgbA1C <7%. BMI <25 Patient has diagnosis of Hyperlipidemia (ICD E78)?: Yes - Visit Date of Assessment:: 07/07/22 Session #:: 0 - Cholesterol/Lipids (Other Core Measures) Determine presence & major risk factors that modify LDL goal: Hypertension or hypertensive medication, Age men > 45 years; women >/= 55 years Outcomes/Goals: Pt IDs own risk factors & lifestyle modifications by Session 10, Pt independently manages Intervention/Plan: Instruct on personal lipid levels & lipid goals/NCEP guidelines, Instruct on cholesterol Referral to dietitian:: Yes - Diabetes (Other Core Measures) Diabetes Type: Diagnosis Type II ICD-10 E11 Insulin dependent injection/pump?: Yes Do you monitor your blood sugar at home?: No Referral to Diabetic Clinic:: Yes Outcomes/Goals:: Able to state symptoms of, Able to state, Able to state Intervention/Plan:: Instruct on, Refer to, Instruct on - Weight Mgt (Other Care) Not Applicable: Yes Height: 5 ft 11 in Weight:: 212 lb BMI: 29.5 Diagnosis Overweight/Obesity BMI> 30% ICD-10 E66: No Diagnosis High BMI/Morbid Obesity BMI> 35% ICD-10 Z68: No Outcomes/Goals: Pt sets, maintains & shows weight loss goal & trend during rehab Intervention/Plan: Instruct on ideal BMI & set weight loss goal w/patient, Assist pt to ID & incorporate diet changes for weight loss by S9, Encourage goal of using 250-300dcal per session for weight loss - Healthy Eating Habits Will attend diet classes:: Yes Outcomes/Goals:: Consume diet rich in vegs,fruits,whole grain/high fiber,fish,lean meat, Limit sat/trans fats,cholesterol & added salts & sugars Intervention/Plan:: Assess current eating habits - Education Gave educational materials for:: Signs & symptoms of hypoglycemia, Signs & symptoms of hyperglycemia, Relate diabetes to coronary artery disease, Healthy eating Nutrition - 30-Day Assessment Nutrition - 60-Day Assessment Nutrition - 90-Day Assessment Nutrition - Final Assessment Core - Initial Assessment - Visit Date of Eval: 07/07/22 Session #:: 0 - Pre-CR Evaluation - Medication Compliance Preventative Medication(s):: Aspirin, Ticagrelor/P2Y12 inhibitor, Statin/lipid, Beta suha H/O mental health issues: depression, anxiety, or addiction?: No Doesn?t believe in the benefits of treatment?: No Believes medications are unnecessary or harmful?: No Has a concern about medication side effects?: No Expresses concern over the cost of medications?: No Outcomes/Goals: Verbalizes medications,desired effect & common side effects @ DC, Pt self-reports following medication regimen, Keeps card in wallet w/medications listed by DC Interventions/plans: Instruct on medication effects & side effects, Review medication list w/patient every two weeks, Instruct importance of taking meds as ordered & assist problem solving - Tobacco Use Tobacco Use: Chew Outcomes/Goals: Smoking cessation achieved or maintained by discharge, Identify aids/strategies for achieving smoking cessation by session 6 Interventions/plan: Instruct on effects of smoking & provide smoking cessation resource, Assist pt to set quit date & provide encouragement, Assist pt to develop strategies to achieve/maintain quit date, Assist pt w/nicotine replacement & medication for cessation success - Hypertension Hypertension Diagnosis:: Hypertension ICD-10 I10 Resting Blood Pressure:: 126/76 [place] [employer] Hypertension Guidelines: [place] [employer] Hypertension Guidelines. Normal BP Less than 120/80. Elevated BP 120/80. Hypertension Stage 1: BP 130-139/80-89. Hypertesnion Stage 2: BP 140 or higher/90 or higher. Hypertension Crisis: BP higher than 180/120 Outcomes/Goals: Able to verbalize/achieve optimal blood pressure <130/80, Incorporates diet changes & exercise for blood pressure control by DC Interventions/plan: Instruct on optimal blood pressure, hypertension & medications, Instruct on effects of sodium, alcohol, stress, exercise &hypertension - Tobacco Cessation Referral Smoking Cessation Referral:: Yes Individual Education/Counseling:: Yes Education Schedule Given:: Yes Core - 30-Day Assessment Core - 60-Day Assessment Core - 90 Day Assessment Core - Final Assessment Psychosocial - Initial Assess - VIsit Date of Eval: 07/07/22 Session #:: 0 - Pre-CR evaluation Not Applicable: No History of previous Mental disease:: Yes History of Emotional Disorders: Anxious, Depression - Psychosocial Test Tool Used:: [employer] Active Scaler QOL Cardiac, PHQ-9 Questionnaire phq-9 Severity: Severity. 1-4 Minimal Depression. 5-9 Mild Depression. 10-14 Moderate Depression. 15-19 Moderately Sever Depression. 20-27 Severe Depression. Rule: - Outcomes/Goals: See list Psychosocial Outcomes/Goals:: ID's personal stressors & 2 strategies to manage stress by discharge - Intervention/Plan: See List Interventions/Plan:: Assess stressors,coping strategies & signs of derpression on admission, Instruct/assist pt to develop coping & personal stress Mgt strategies, Instruct patient to recognize signs & symptoms of depression, Instruct patient to recog Psychosocial - 30-Day Assess Psychosocial - 60-Day Assess Psychosocial - 90-Day Assess Psychosocial - Final Assessmen Patient Health Questionnaire Initial Assessment 1. Little interest or pleasure in doing things: Several days 2. Feeling down, depressed, or hopeless: More than half the days 3. Trouble falling or staying asleep, or sleeping too much: More than half the days 4. Feeling tired or having little energy: Nearly every day 5. Poor appetite or overeating: Not at all 6. Feeling bad about yourself -- or that you are a failure or have let yourself or your family down: Not at all 7. Trouble concentrating on things, such as reading the newspaper or watching television: Not at all 8. Moving or speaking so slowly that other people could have noticed. Or the opposite - being so fidgety or restless that you have been moving around a lot more than usual: Not at all 9. Thoughts that you would be better off , or of hurting yourself in some way: Not at all How difficult have these problems made it for you to do your work, take care of things at home, or get along with other people?: Somewhat difficult Total Score: 8 ALIYA-Q SV Test - Statements CAD is a disease of the arteries in the heart: False Examples of risk factors for heart disease: True Angina is chest pain or discomfort: True The benefits of resistance training include: True Eating more meat and dairy products: False Anti-platelet medications such as aspirin are important: True The only effective way to manage stress: False An exercise warm-up slowly increases heart rate: True Prepared, processed foods usually have high sodium: True Depression is common after a heart attack: True The statin medications lower cholesterol: True To control blood pressure, lower the amount of sodium: True If someone gets chest discomfort during walking: False Transfats are partially hydrogenated vegetable oils: False Sleep apnea that is not treated increases the risk: False To control cholesterol, one should become a vegetarian: False Someone knows if he/she is exercising at the right level: True Diabetes cannot be prevented with exercise & health eating: False Stress is a large risk for heart attack: True A diet that can help lower blood pressure is rich in: True - Total Score Total Correct Responses: 19 Self-Efficacy Initial Assessment We would like to know how confident you are in doing certain activities. Please select your confidence level for:: Select your confidence level for the following using the scale 1-10 where 1 is not at all confident and 10 is totally confident. Your score is the average of all 6 responses. Fatigue: How confident are you that you can keep the fatigue caused by your disease from interfering with the things you want to do? Select Number: 3 Physical Discomfort or Pain: How confident are you that you can keep the physical discomfort or pain of your disease from interfering with the things you want to do? Select Number: 5 Emotional Distress: How confident are you that you can keep the emotional distress caused by your disease from interfering with the things you want to do? Select Number: 5 Other Symptoms or Health Problems: How confident are you that you can keep other symptoms or health problems from interfering with the things you want to do? Select Number: 6 Different Tasks and Activities: How confident are you that you can do the different tasks and activities needed to manage your health condition so as to reduce your need to see a doctor? Select Number: 6 Medication: How confident are you that you can do things other than just taking medication to reduce how much your illness affects your everyday life? Select Number: 8 Total Score:: 5 Nutrition Survey - Nutrition Survey Initial Have you lost >10 lbs over the past 2 months without trying?: No Are you following a special diet at home for diabetes, low fat, or low salt?: No Are you interested in meeting with a dietitian for help understanding your diet?: No Do you eat less than 3 meals a day?: Yes Do you eat fatty meats (freedman, sausage, ribs, etc), fried foods, desserts, large amounts of salad dressings, margarine, butter, or cheese most days?: No Do you have food allergies? [Enter types in comment field]: No Do you eat in restaurants more than 3 times a week?: No Do you season food with salt, seasoning salt, or garlic salt?: Yes Do you used canned, boxed, frozen meals, or soups, seasoning packets?: No Total Score:: 2
--- NOTE | 2022-07-07 13:01 | CR.HP_ITS ---
CR - History & Physical - General Arrival date:: 07/07/22 Arrival time:: 13:00 Date of Referral:: 06/25/22 Date of CR Evaluation:: 07/07/22 Referring Physician: Dr. Beka Canchola Primary Diagnosis: PCI w/coronary stenting, NSTEMI - History of Present Cardiac Event Onset Date: Enter Onset Date of cardiac illnesses in Comment field below Acute Myocardial Infarction within 12 months:: Yes - 05/03/2022 PTCA or coronary stenting:: Yes - 05/03/2022 Type of Symptoms:: Chest pain during a chemo treatment and was taken to emergency room. Interventions with present event:: heart cath at [facility] unable to reopen, sent to [facility] then on up to [facility] - Sleep Disorder Evaluation Hx of Sleep Apnea: No Do you snore loudly (louder than talking or can be heard through closed doors)?: Yes Do you often feel tired/ fatigued/ sleepy during daytime?: Yes Has anyone observed you stop breathing during sleep?: No History of Hypertension (for STOP score): Yes - Patient thinks alot of it is related to the cancer STOP Results: Positive - Medications Home Medications: Ambulatory Orders Medication Instructions Recorded alprazolam 1 mg tablet (Xanax) 1 mg PO QHS PRN Anxiety 10/03/20 amlodipine 5 mg tablet (Norvasc) 5 mg PO DAILY BLOOD PRESSURE 10/03/20 atenolol 50 mg tablet (Tenormin) 50 mg PO DAILY BLOOD PRESSURE 10/03/20 atorvastatin 20 mg tablet (Lipitor) 20 mg PO QHS cholesterol 10/03/20 escitalopram oxalate 10 mg tablet 30 mg PO DAILY ANXIETY 10/03/20 (Lexapro) acyclovir 400 mg tablet 400 mg PO BID cancer 02/10/22 allopurinol 300 mg tablet 300 mg PO DAILY arthritis 02/10/22 folic acid 1 mg tablet 1 mg PO DAILY supplement 02/10/22 acyclovir 400 mg tablet 400 mg PO BID 07/07/22 allopurinol 300 mg tablet 300 mg PO DAILY 07/07/22 aspirin 81 mg tablet 81 mg PO DAILY 07/07/22 cetirizine 10 mg tablet (Zyrtec) 10 mg PO DAILY 07/07/22 escitalopram oxalate 20 mg tablet 20 mg PO DAILY 07/07/22 (Lexapro) potassium chloride 20 mEq 20 meq PO DAILY 07/07/22 tablet,extended release(part/cryst) prednisone 20 mg tablet 20 mg PO BID 07/07/22 - Allergies Allergies/Adverse Reactions: Allergies Iodinated Contrast Media Allergy (Verified 02/21/22 11:35) Hives Advanced Directives - Advanced Directives Power of Ethics Instructor: No Living Will: No Advance Directives Information Provided: Yes Advance Directives on File: No DNR Order?:: No - MOLST See MOLST form: No Past Medical History - Covid-19 Screening Fever: No Unexplained muscle aches: No Current respiratory symptoms: No Upper respiratory infections symptoms: No Gastro-intestinal symptoms: No [id number]-[id number] symptoms: No Has tested positive for COVID-19 in last 30 days: No Date of testin07/07/22 - Vaccinated with booster Had contact w/person w/symptoms or Covid-19 (+) last 14 days: No Has High Risk Exposures ID'd by Health dept/Inf Control team: No 65 years or older:: Yes Lives in Assisted Living facility:: No Has a chronic lung disease or moderate to severe asthma:: No Has a serious heart condition:: No Immunocompromised:: Yes Severely obese (Body Mass Index of 40 or higher):: No Diabetic:: Yes Has chronic kidney disease undergoing dialysis:: No Has liver disease:: No - Past Medical Illness Medical History: Past Medical History (Last Updated 07/07/22 @ 13:08 by Zachariah Back, [employer]PER[employer], [employer], BS) Alcohol use Z72.89 quit drinking December 2021 Anxiety F41.9 Arthritis M19.90 Chronic pain of left ankle M25.572, G89.29 Depression F32.A Diabetes E11.9 Easy bruising R23.8 Former smoker Z87.891 Generalized anxiety disorder F41.1 High cholesterol E78.00 controlled on med History of stress test Z92.89 [facility] Hypertension I10 controlled on meds Large granular lymphocytic leukemia C91.Z0 Panic disorder without agoraphobia 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 Naomi Espinal MD) History of ankle surgery Z98.890 01/2019 at [facility] History of colonoscopy Z98.890 History of wisdom tooth extraction K08.409 - Family History Summary Family History: Family History (Last Reviewed 02/21/22 @ 16:[address] Naomi Espinal MD) Other Diabetes Heart disease Hypertension Social History - Smoking History Smoking Status: Former smoker Years Smokin Packs Smoked per Day: 1 Hx Smoking Cessation Date: 03/28/82 - current snuff chew Hx Tobacco Use: Yes Hx Smoking Exposure: No - Alcohol Use Alcohol Usage: Yes - Standard 5 bers/week - Substance Abuse Hx Substance Use: No - Occupation Occupation (List type of work in comments):: Retired - Hobbies, Recreation, Social Activities Hobbies: Sports - boating, fishing, mowing lawn work, Other Recreational Activities: I am able to engage in a few activities - a few with moderation. Social Environment - Status Marital Status: - Current Living Arrangements Living Environment:: Spouse - Children How many children do you have?: 2 Do any of your children live nearby?: Yes - Safety Do you feel safe in your surroundings?: Yes - Assistance Do you need any assistance at home?: no Review of Systems - Review of Systems Hints: Right click = Denies (Slash). Left click = Reports ([employer] [place]) Review of Present Symptoms: Reports: Shortness of Breath with Exertion, Dizziness/Lightheadedness, Fatigue, Appetite - Normal. Denies: Shortness of Breath at Rest, Angina, Heart Arrhythmia/Irregularities, Appetite - Special Diet, Sleep - Normal, Sexual Changes - Pain Is Patient Pain Free?: Yes Pain Location: lower extremity - chronic left ankle pain, both hips Pain Level: 7/10 - arthritis in hips, ankle chronic pain, gets to bad sits and rests. Risk Factor Assessment - Vital Signs Temperature: 98.8 F Respiratory Rate: 16 Pulse Ox: 96 Blood Pressure: 126/76 - Pulse Pulse Rate: 68 Pulse Rhythm: Regular - Hypertension Blood Pressure Sitting - Left Arm: 126/76 - Diabetes Diabetic History: Type II, Insulin Dependent Nutrition Referral for Diabetes: Yes - Obesity Height: 6 ft Weight:: 212 lb Weight in Pounds: 212.0 lbs Weight Source: Stated by Patient Body Mass Index (BMI): 28.7 Nutritional Referral for Obesity: No - Risk Stratification Risk Guidelines: Lowest Risk: Risk Factor for Smoking, Risk Factor for Dyslipidemia, Risk Factor for Hypertension, Risk Factor for Sedentary Lifestyle, Risk Factor for Depression, Moderate Risk: Risk Factor for Diabetes, Risk Factor for Obesity - Family History Family History: Family History (Last Reviewed 02/21/22 @ 16:[address] Naomi Espinal MD) Other Diabetes Heart disease Hypertension Motivation - Motivation to Participate On a scale of 1 to 10, how prepared are you to commit to attending program?: 8 What do you see as barriers to successfully being able to complete the program?: chronic pain hip and ankle What do you see as the benefits of succesfully completing the program? In other words, what do you hope to get out of participating in the program?: getting stronger Are there issues you are dealing with that will interfere with completing the program?: always have chronic pain Do you have a spouse or signficant other, family or friends who will help support you to complete the program?: Yes
[2022-07-07 13:42] VITALS: BP 126/76; PULSE 68; RESP 16; TEMP 37.1; O2SAT 96; BMI 28.7
[2022-07-07 14:13] VITALS: BP 126/76; BMI 29.5
== END | disposition home or self-care (01) ==
LOC: CR 12:56
PROVIDERS: PCP Internal Medicine; Visit Provider Internal Medicine Interventional Cardiology
DX: E11.9 Type 2 diabetes mellitus without complications (principal); E78.00 Pure hypercholesterolemia, unspecified; I10 Essential (primary) hypertension

== ENCOUNTER 2022-07-23 10:15 | Outpatient (RCR) | payer MEDICARE, OTHER, SELFPAY ==
[2022-07-07 14:13] VITALS: BMI 29.5
== END 2022-07-25 23:59 ==
LOC: CR 10:15
PROVIDERS: PCP Internal Medicine
DX: I25.10 Atherosclerotic heart disease of native coronary artery without angina pectoris (principal); I25.2 Old myocardial infarction; E78.2 Mixed hyperlipidemia
CPT/HCPCS: 93798

== ENCOUNTER 2022-08-25 10:15 | Outpatient (RCR) | payer MEDICARE, OTHER, SELFPAY ==
[2022-07-07 14:13] VITALS: BMI 29.5
--- NOTE | 2022-08-06 08:35 | PCM.CR.ITP ---
Diagnosis Exercise - 30-day Assessment - Visit Date of Eval: 08/06/22 Session #:: 11 - Physician Prescribed Exercise Modalities: Treadmill, Rower, Airdyne Frequency: 3x/week for 12 weeks [36 sessions] Intensity: 60-80% of age predicted maximum heart rate reserve Current METSs:: 4.5 Target Heart Rate:: 94-109 Current RPE:: 13 Maximum Excercise HR:: 104 Resting Blood Pressure: 124/60 Maximum Exercise Blood Pressure: 140/80 EKG Type: NSR to ST with occas PAC's and rare PVC's - Outcomes & Goals Goals:: Verbalizes understanding of THR, RPE & goal METS by session 6, Documents in home exercise log/reports 30 min aerobic 5 day/wk by DC, Demonstrates accurate pulse taking by DC, Other additional outcome/goals: see below - Intervention & Plan Exercise Program Goals: Instruct on personal THR & RPE, Instruct on MET level & personal MET goal, Show patient to take own pulse /validate performance until accurate, Instruct on home exercise, Other additional plan/int - 30-day Reassessments 30 day Reassessments:: Progressing - Pulse taking demonstrated - Physical Activity Home Exercise Physical Activity - Home Exercise: Safe Exercise, Warm-up, Self-monitoring, Cool-Down, Home Exercise > 30 min Daily, Sitting Time <3 hours/daily - Outcomes & Goals Outcomes/Goals: Demonstrates correct Warm-up/exercise Cool-Down (S3) if = 2.5 METs, Verbalizes symptoms of exercise intolerance by Session 3 (S3), Demonstrate safe equipment use (S3) & follows exercise prescrition (6), Other: See below - Intervention & Plan Plan/Intervention: Instruct warm-up & cool-down if exercising at > 2 METs, Instruct on symptoms of exercise intolerance & actions to take, Instruct & monitor on saf, Assess intial functional capacity & safety risk, Other See below - 30-day Reassessments 30 day Reassessments:: Progressing - warm up encouraged Nutrition - Initial Assessment Nutrition - 30-Day Assessment - Program Goals Nutrition Program Goals: LDL <100 optimal. 100 - 129 Near optimal. 130 - 159 Borderline High. 160 - 189 High. Total Cholesterol <200 desirable. 200 - 239 Borderline High. >/= 240 High. HDL < 40 Low >/=60 High. Triglycerides <150 desirable. <199 optimal. VlDL 5 - 40. HgbA1C <7%. BMI <25 Patient has diagnosis of Hyperlipidemia (ICD E78)?: Yes - Visit Date of Assessment:: 08/06/22 Session #:: 11 - Cholesterol/Lipids (Other Core Measures) Determine presence & major risk factors that modify LDL goal: Hypertension or hypertensive medication, Low HDL cholesterol <40 mg/dL*, Family history of premature CHD in Male < 55 years: female <65 yearsFa, Age men > 45 years; women >/= 55 years Outcomes/Goals: Pt IDs own risk factors & lifestyle modifications by Session 10, Verbalizes symptoms of angina & response by session 3., Pt independently manages, Other Additional Outcomes/Goals: Intervention/Plan: Advocate for lipid panel cholesterol medication if applicable, Instruct on personal lipid levels & lipid goals/NCEP guidelines, Instruct on cholesterol, Other additional plan/int Referral to dietitian:: No - pt declined 30-day Reassessments:: Progressing - risk factors explained - Diabetes (Other Core Measures) Diabetes Type: Diagnosis Type II ICD-10 E11 Insulin dependent injection/pump?: Yes Do you monitor your blood sugar at home?: No Referral to Diabetic Clinic:: No - pt declines Outcomes/Goals:: Able to state symptoms of, Able to state, Able to state, Other additional Intervention/Plan:: Instruct on, Refer to, Instruct on, Other 30-day Reassessments:: Progressing - pt to attend nutrition class - Weight Mgt (Other Care) Height: 5 ft 11 in Weight:: 95.935 kg BMI: 29.5 Diagnosis Overweight/Obesity BMI> 30% ICD-10 E66: No Diagnosis High BMI/Morbid Obesity BMI> 35% ICD-10 Z68: No Outcomes/Goals: Pt sets, maintains & shows weight loss goal & trend during rehab, Other additional outcomes/goals Intervention/Plan: Instruct on ideal BMI & set weight loss goal w/patient, Assist pt to ID & incorporate diet changes for weight loss by S9, Refer to Structured Weight Loss program as appropriate, Encourage goal of using 250-300dcal per session for weight loss, Other additional plan/interventions 30 day Reassessments:: Progressing - pt to attend nutritin class - Healthy Eating Habits Will attend diet classes:: Yes Outcomes/Goals:: Consume diet rich in vegs,fruits,whole grain/high fiber,fish,lean meat, Limit sat/trans fats,cholesterol & added salts & sugars, Other additional outcome/goals: Intervention/Plan:: Assess current eating habits, Other Additional plan/interventions 30-day Reassessments:: Progressing - pt to attend nutrition class - Education Gave educational materials for:: Signs & symptoms of hypoglycemia, Signs & symptoms of hyperglycemia, Relate diabetes to coronary artery disease, Healthy eating Nutrition - 60-Day Assessment Nutrition - 90-Day Assessment Nutrition - Final Assessment Core - Initial Assessment Core - 30-Day Assessment - Visit Date of Eval: 08/06/22 Session #:: 11 - Medication Compliance Preventative Medication(s):: Aspirin, Ticagrelor/P2Y12 inhibitor, Statin/lipid, Beta suha H/O mental health issues: depression, anxiety, or addiction?: No Doesn?t believe in the benefits of treatment?: No Believes medications are unnecessary or harmful?: No Has a concern about medication side effects?: No Expresses concern over the cost of medications?: No Outcomes/Goals: Verbalizes medications,desired effect & common side effects @ DC, Pt self-reports following medication regimen, Keeps card in wallet w/medications listed by DC, Other additional outcome/goals: Interventions/plans: Instruct on medication effects & side effects, Review medication list w/patient every two weeks, Instruct importance of taking meds as ordered & assist problem solving, Other additional 30-day Reassessments:: Progressing - pt encouraged to take meds - Tobacco Use Tobacco Use: Chew Outcomes/Goals: Smoking cessation achieved or maintained by discharge, Identify aids/strategies for achieving smoking cessation by session 6, Other additional outcome/goals Interventions/plan: Instruct on effects of smoking & provide smoking cessation resource, Assist pt to set quit date & provide encouragement, Assist pt to develop strategies to achieve/maintain quit date, Assist pt w/nicotine replacement & medication for cessation success, Other additional plan/interventions 30-day Reassessments:: Progressing - pt encouraged to stop chewing - Hypertension Hypertension Diagnosis:: Hypertension ICD-10 I10 Resting Blood Pressure:: 124/60 [place] [employer] Hypertension Guidelines: [place] [employer] Hypertension Guidelines. Normal BP Less than 120/80. Elevated BP 120/80. Hypertension Stage 1: BP 130-139/80-89. Hypertesnion Stage 2: BP 140 or higher/90 or higher. Hypertension Crisis: BP higher than 180/120 Peak Exercise Blood Pressure:: 140/80 Outcomes/Goals: Able to verbalize/achieve optimal blood pressure <130/80, Incorporates diet changes & exercise for blood pressure control by DC, Other additional outcomes/goals Interventions/plan: Instruct on optimal blood pressure, hypertension & medications, Instruct on effects of sodium, alcohol, stress, exercise &hypertension, Other additional plan/interventions 30 day Reassessments:: Progressing - pt encouraged to take meds - Tobacco Cessation Referral Smoking Cessation Referral:: Yes Individual Education/Counseling:: Yes Education Schedule Given:: Yes Core - 60-Day Assessment Core - 90 Day Assessment Core - Final Assessment Psychosocial - Initial Assess Psychosocial - 30-Day Assess - VIsit Date of Eval: 08/06/22 Session #:: 11 History of previous Mental disease:: Yes History of Emotional Disorders: Anxious, Depression - Outcomes/Goals: See list Psychosocial Outcomes/Goals:: ID's personal stressors & 2 strategies to manage stress by discharge, Other Additional outcome/goals: - Intervention/Plan: See List Interventions/Plan:: Assess stressors,coping strategies & signs of derpression on admission, Instruct/assist pt to develop coping & personal stress Mgt strategies, Refer to Behavioral Health if appropriate, Refer to Physician if appropriate, Instruct patient to recognize signs & symptoms of depression, Instruct patient to recog, Other additional plan/intervention - 30-day Reassessments: 30 day Reassessments:: Progressing - pt is doing well at this time Psychosocial - 60-Day Assess Psychosocial - 90-Day Assess Psychosocial - Final Assessmen Patient Health Questionnaire 30-Day Re-eval Assessment 1. Little interest or pleasure in doing things: Several days 2. Feeling down, depressed, or hopeless: More than half the days 3. Trouble falling or staying asleep, or sleeping too much: More than half the days 4. Feeling tired or having little energy: Nearly every day 5. Poor appetite or overeating: Not at all 6. Feeling bad about yourself -- or that you are a failure or have let yourself or your family down: Not at all 7. Trouble concentrating on things, such as reading the newspaper or watching television: Not at all 8. Moving or speaking so slowly that other people could have noticed. Or the opposite - being so fidgety or restless that you have been moving around a lot more than usual: Not at all 9. Thoughts that you would be better off , or of hurting yourself in some way: Not at all How difficult have these problems made it for you to do your work, take care of things at home, or get along with other people?: Somewhat difficult Total Score: 8 Self-Efficacy 30-Day Re-eval Assessment We would like to know how confident you are in doing certain activities. Please select your confidence level for:: Select your confidence level for the following using the scale 1-10 where 1 is not at all confident and 10 is totally confident. Your score is the average of all 6 responses. Fatigue: How confident are you that you can keep the fatigue caused by your disease from interfering with the things you want to do? Select Number: 3 Physical Discomfort or Pain: How confident are you that you can keep the physical discomfort or pain of your disease from interfering with the things you want to do? Select Number: 5 Emotional Distress: How confident are you that you can keep the emotional distress caused by your disease from interfering with the things you want to do? Select Number: 5 Other Symptoms or Health Problems: How confident are you that you can keep other symptoms or health problems from interfering with the things you want to do? Select Number: 6 Different Tasks and Activities: How confident are you that you can do the different tasks and activities needed to manage your health condition so as to reduce your need to see a doctor? Select Number: 6 Medication: How confident are you that you can do things other than just taking medication to reduce how much your illness affects your everyday life? Select Number: 8 Total Score:: 5 Nutrition Survey
[2022-08-06 08:50] VITALS: BP 124/60; BP 140/80; BMI 29.5
== END 2022-08-25 23:59 ==
LOC: CR 10:15
PROVIDERS: PCP Internal Medicine
DX: I25.10 Atherosclerotic heart disease of native coronary artery without angina pectoris (principal); I25.2 Old myocardial infarction; E78.2 Mixed hyperlipidemia; I51.9 Heart disease, unspecified
CPT/HCPCS: 93798

== ENCOUNTER 2022-09-03 10:15 | Outpatient (RCR) | payer MEDICARE, OTHER, SELFPAY ==
[2022-08-06 08:50] VITALS: BMI 29.5
[2022-08-26 00:39] VITALS: BP 124/60; BP 140/80
--- NOTE | 2022-09-06 11:07 | PCM.CR.ITP ---
Diagnosis Exercise - 60-day Assessment - Visit Date of Jodi: 09/06/22 Session #:: 20 Comments:: Pt discussed with staff his increased depression dealing with current chemotherapy treatments. Stated he does not want to quit rehab but is having a difficult time dealing with everything. Mikaela may consider taking some time off from rehab to deal with his chemo and then resume rehab after that. - Physician Prescribed Exercise Modalities: Treadmill, Airdyne Frequency: 3x/week for 12 weeks [36 sessions] Intensity: 60-80% of age predicted maximum heart rate reserve Current METSs:: 5 Target Heart Rate:: 94-109 Current RPE:: 13 Maximum Excercise HR:: 102 Resting Blood Pressure: 126/60 Maximum Exercise Blood Pressure: 140/74 EKG Type: NSR to ST with occas PAC's, rare PVC - Outcomes & Goals Goals:: Verbalizes understanding of THR, RPE & goal METS by session 6, Documents in home exercise log/reports 30 min aerobic 5 day/wk by DC, Demonstrates accurate pulse taking by DC, Other additional outcome/goals: see below - Intervention & Plan Exercise Program Goals: Instruct on personal THR & RPE, Instruct on MET level & personal MET goal, Show patient to take own pulse /validate performance until accurate, Instruct on home exercise, Other additional plan/int - 30-day Reassessments 30 day Reassessments:: Progressing - THR explained - Physical Activity Home Exercise Physical Activity - Home Exercise: Safe Exercise, Warm-up, Self-monitoring, Cool-Down, Home Exercise > 30 min Daily, Sitting Time <3 hours/daily - Outcomes & Goals Outcomes/Goals: Demonstrates correct Warm-up/exercise Cool-Down (S3) if = 2.5 METs, Verbalizes symptoms of exercise intolerance by Session 3 (S3), Demonstrate safe equipment use (S3) & follows exercise prescrition (6), Other: See below - Intervention & Plan Plan/Intervention: Instruct warm-up & cool-down if exercising at > 2 METs, Instruct on symptoms of exercise intolerance & actions to take, Instruct & monitor on saf, Assess intial functional capacity & safety risk, Other See below - 30-day Reassessments 30 day Reassessments:: Progressing - cool down encouraged Nutrition - Initial Assessment Nutrition - 30-Day Assessment Nutrition - 60-Day Assessment - Program Goals Nutrition Program Goals: LDL <100 optimal. 100 - 129 Near optimal. 130 - 159 Borderline High. 160 - 189 High. Total Cholesterol <200 desirable. 200 - 239 Borderline High. >/= 240 High. HDL < 40 Low >/=60 High. Triglycerides <150 desirable. <199 optimal. VlDL 5 - 40. HgbA1C <7%. BMI <25 Patient has diagnosis of Hyperlipidemia (ICD E78)?: Yes - Visit Date of Assessment:: 09/06/22 Session #:: 20 - Cholesterol/Lipids (Other Core Measures) Determine presence & major risk factors that modify LDL goal: Hypertension or hypertensive medication, Low HDL cholesterol <40 mg/dL*, Family history of premature CHD in Male < 55 years: female <65 yearsFa, Age men > 45 years; women >/= 55 years Outcomes/Goals: Pt IDs own risk factors & lifestyle modifications by Session 10, Verbalizes symptoms of angina & response by session 3., Pt independently manages, Other Additional Outcomes/Goals: Intervention/Plan: Advocate for lipid panel cholesterol medication if applicable, Instruct on personal lipid levels & lipid goals/NCEP guidelines, Instruct on cholesterol, Other additional plan/int 30-day Reassessments:: Progressing - risk factors explained - Diabetes (Other Core Measures) Diabetes Type: Diagnosis Type II ICD-10 E11 Insulin dependent injection/pump?: Yes Do you monitor your blood sugar at home?: No Referral to Diabetic Clinic:: No - declines Outcomes/Goals:: Able to state symptoms of, Able to state, Able to state, Other additional Intervention/Plan:: Instruct on, Refer to, Instruct on, Other 30-day Reassessments:: Met - Weight Mgt (Other Care) Height: 5 ft 11 in Weight:: 96.162 kg BMI: 29.5 Diagnosis Overweight/Obesity BMI> 30% ICD-10 E66: No Diagnosis High BMI/Morbid Obesity BMI> 35% ICD-10 Z68: No Outcomes/Goals: Pt sets, maintains & shows weight loss goal & trend during rehab, Other additional outcomes/goals Intervention/Plan: Instruct on ideal BMI & set weight loss goal w/patient, Assist pt to ID & incorporate diet changes for weight loss by S9, Refer to Structured Weight Loss program as appropriate, Encourage goal of using 250-300dcal per session for weight loss, Other additional plan/interventions 30 day Reassessments:: Met - Healthy Eating Habits Will attend diet classes:: Yes Outcomes/Goals:: Consume diet rich in vegs,fruits,whole grain/high fiber,fish,lean meat, Limit sat/trans fats,cholesterol & added salts & sugars, Other additional outcome/goals: Intervention/Plan:: Assess current eating habits, Other Additional plan/interventions 30-day Reassessments:: Progressing - will attend nutrition class - Education Gave educational materials for:: Signs & symptoms of hypoglycemia, Signs & symptoms of hyperglycemia, Relate diabetes to coronary artery disease, Healthy eating Nutrition - 90-Day Assessment Nutrition - Final Assessment Core - Initial Assessment Core - 30-Day Assessment Core - 60-Day Assessment - Visit Date of Eval: 09/06/22 Session #:: 20 - Medication Compliance Preventative Medication(s):: Aspirin, Ticagrelor/P2Y12 inhibitor, Statin/lipid, Beta suha H/O mental health issues: depression, anxiety, or addiction?: Yes Doesn?t believe in the benefits of treatment?: No Believes medications are unnecessary or harmful?: No Has a concern about medication side effects?: No Expresses concern over the cost of medications?: No Outcomes/Goals: Verbalizes medications,desired effect & common side effects @ DC, Pt self-reports following medication regimen, Keeps card in wallet w/medications listed by DC, Other additional outcome/goals: Interventions/plans: Instruct on medication effects & side effects, Review medication list w/patient every two weeks, Instruct importance of taking meds as ordered & assist problem solving, Other additional 30-day Reassessments:: Progressing - encouraged to take meds - Tobacco Use Tobacco Use: Chew 30-day Reassessments:: Progressing - pt encouraged to stop chewing - Hypertension Hypertension Diagnosis:: Hypertension ICD-10 I10 Resting Blood Pressure:: 126/60 [place] [employer] Hypertension Guidelines: [place] [employer] Hypertension Guidelines. Normal BP Less than 120/80. Elevated BP 120/80. Hypertension Stage 1: BP 130-139/80-89. Hypertesnion Stage 2: BP 140 or higher/90 or higher. Hypertension Crisis: BP higher than 180/120 Peak Exercise Blood Pressure:: 140/74 Outcomes/Goals: Able to verbalize/achieve optimal blood pressure <130/80, Incorporates diet changes & exercise for blood pressure control by DC, Other additional outcomes/goals Interventions/plan: Instruct on optimal blood pressure, hypertension & medications, Instruct on effects of sodium, alcohol, stress, exercise &hypertension, Other additional plan/interventions 30 day Reassessments:: Progressing - Tobacco Cessation Referral Smoking Cessation Referral:: Yes Individual Education/Counseling:: Yes Education Schedule Given:: Yes Core - 90 Day Assessment Core - Final Assessment Psychosocial - Initial Assess Psychosocial - 30-Day Assess Psychosocial - 60-Day Assess - VIsit Date of Eval: 09/06/22 Session #:: 20 History of previous Mental disease:: Yes History of Emotional Disorders: Anxious, Depression Self-reported stressors: Medical/Health, Recent Illness - 30-day Reassessments: 30 day Reassessments:: Progressing Psychosocial - 90-Day Assess Psychosocial - Final Assessmen Patient Health Questionnaire 60-Day Re-eval Assessment 1. Little interest or pleasure in doing things: Several days 2. Feeling down, depressed, or hopeless: More than half the days 3. Trouble falling or staying asleep, or sleeping too much: More than half the days 4. Feeling tired or having little energy: Nearly every day 5. Poor appetite or overeating: Not at all 6. Feeling bad about yourself -- or that you are a failure or have let yourself or your family down: Not at all 7. Trouble concentrating on things, such as reading the newspaper or watching television: Not at all 8. Moving or speaking so slowly that other people could have noticed. Or the opposite - being so fidgety or restless that you have been moving around a lot more than usual: Not at all 9. Thoughts that you would be better off , or of hurting yourself in some way: Not at all How difficult have these problems made it for you to do your work, take care of things at home, or get along with other people?: Somewhat difficult Total Score: 8 Self-Efficacy 60-Day Re-eval Assessment We would like to know how confident you are in doing certain activities. Please select your confidence level for:: Select your confidence level for the following using the scale 1-10 where 1 is not at all confident and 10 is totally confident. Your score is the average of all 6 responses. Fatigue: How confident are you that you can keep the fatigue caused by your disease from interfering with the things you want to do? Select Number: 3 Physical Discomfort or Pain: How confident are you that you can keep the physical discomfort or pain of your disease from interfering with the things you want to do? Select Number: 5 Emotional Distress: How confident are you that you can keep the emotional distress caused by your disease from interfering with the things you want to do? Select Number: 5 Other Symptoms or Health Problems: How confident are you that you can keep other symptoms or health problems from interfering with the things you want to do? Select Number: 6 Different Tasks and Activities: How confident are you that you can do the different tasks and activities needed to manage your health condition so as to reduce your need to see a doctor? Select Number: 6 Medication: How confident are you that you can do things other than just taking medication to reduce how much your illness affects your everyday life? Select Number: 8 Total Score:: 5 Nutrition Survey
[2022-09-06 11:22] VITALS: BP 126/60; BP 140/74; BMI 29.5
== END 2022-09-24 23:59 ==
LOC: CR 10:15
PROVIDERS: PCP Internal Medicine
DX: I25.10 Atherosclerotic heart disease of native coronary artery without angina pectoris (principal); I25.2 Old myocardial infarction; E78.2 Mixed hyperlipidemia; I51.9 Heart disease, unspecified
CPT/HCPCS: 93798

== ENCOUNTER → 2023-10-07 | Outpatient (CLI) | payer MEDICARE, OTHER, SELFPAY ==
[2023-10-07 17:33] LABS: Absolute Lymphocyte Count 1.84 X10^3/uL (0.83-4.51); Absolute Neutrophil Count 2.7 X10^3/uL (2.0-7.7); Basophil# 0.08 X10^3/uL; Basophil% 1.4 % (0-1); Eosinophil# 0.12 X10^3/uL; Eosinophils% 2.2 % (0-5); Hematocrit 41.4 % (40-54); Hemoglobin 14.3 g/dL (13.0-16.5); Lymphocyte # 1.84 X10^3/ul (0.83-4.51); Lymphocyte % 33.1 % (19-41); Mean Corp Hgb Conc 34.5 g/dL (32-36); Mean Corpuscular Hgb 32.2 pg (27.0-32.0); Mean Corpuscular Volume 93.2 fL (80-94); Mean Platelet Vol. 9.4 fl (6.2-12.0); Monocyte# 0.84 X10^3/uL; Monocyte% 15.1 % (0-10); NRBC Flagged by Analyzer 0 % (0-5); Neutrophil # 2.66 X10^3/uL (2.7-7.7); Neutrophil % 47.8 % (47-70); Platelet Count 201 K/mm3 (150-450); RBC Distribution Width CV 15.2 % (11.6-14.6); RBC Distribution Width SD 51.7 fl (35.1-43.9); Red Blood Count 4.44 M/mm3 (4.6-6.2); White Blood Count 5.6 K/mm3 (4.4-11.0)
[2023-10-07 17:47] LABS: Erythrocyte Sedimentation Rate < 1 mm/hr (0-20)
[2023-10-07 18:09] LABS: ALB/GLOB Ratio 1.4 RATIO (0.9-2.4); AST(SGOT) 24 U/L (15-37); Alanine Aminotransfer ALT/SGPT 35 U/L (16-61); Albumin, Serum 4.1 g/dL (3.2-5.0); Alkaline Phosphatase 100 U/L (45-117); Anion Gap 9 (5-15); BUN 22 mg/dL (7-18); BUN/Creat Ratio 24.2 RATIO (10-20); CRP 3.33 mg/L (0.0-3.0); Calcium,Total 9.1 mg/dL (8.5-10.1); Chloride 103 mmol/L (98-107); Creatinine, Serum 0.91 mg/dL (0.70-1.30); EST Glomerular Filtration Rate 87 mL/min (>60); Est Glom Filt Rate - Afr Amer 105 mL/min (>60); Glucose 101 mg/dL (74-106); Potassium 3.4 mmol/L (3.5-5.1); Protein, Total 7.1 g/dL (6.4-8.2); Sodium Level 136 mmol/L (136-145)
[2023-10-07 18:29] LABS: Hepatitis B Surface Antibody Non-Reactive; Hepatitis B Surface Antigen Non-Reactive (Nonreactive); Hepatitis C Antibody Non-Reactive (Nonreactive)
[2023-10-10 14:09] LABS: ANTINUCLEAR ANTIBODIES DIRECT Negative (Negative); CCP IgG Antibodies > 250 units (0-19)
== END | disposition home or self-care (01) ==
LOC: MTLAB 14:50
PROVIDERS: PCP Internal Medicine; Referring Provider Internal Medicine Rheumatology; Visit Provider Internal Medicine Rheumatology
DX: M05.79 Rheumatoid arthritis with rheumatoid factor of multiple sites without organ or systems involvement (principal); Z79.899 Other long term (current) drug therapy
CPT/HCPCS: 36415; 80053; 85025; 85652; 86038; 86140; 86200; 86431; 86706; 86803; 87340

== ENCOUNTER → 2024-01-16 | Outpatient (CLI) | payer MEDICARE, OTHER, SELFPAY ==
--- NOTE | 2024-01-16 10:28 | RAD_ITS ---
EXAM: XR PELVIS, 1 OR 2 VIEWS CLINICAL INDICATION: RHEUMATOID ARTHRITIS TECHNIQUE: Frontal view of the pelvis. COMPARISON: No relevant prior studies available. FINDINGS: BONES/JOINTS: Unremarkable. No displaced fracture. No destructive or sclerotic lesions. Note that overlapping bowel shadows may however obscure fine detail. Sacroiliac joints are unremarkable. No widening of the pubic symphysis. The articular structures are unremarkable. SOFT TISSUES: Unremarkable. No soft tissue swelling or gas. RAD/Pelvis 1 or 2 Views IMPRESSION: No evidence of displaced pelvic fracture. Electronically Signed: George Vega MD at 0:06 EDT ,
[2024-01-16 12:20] LABS: Absolute Neutrophil Count 1.9 X10^3/uL (2.0-7.7); Basophil# 0.05 X10^3/uL; Basophil% 1.2 % (0-1); Eosinophil# 0.15 X10^3/uL; Eosinophils% 3.5 % (0-5); Hematocrit 42.2 % (40-54); Hemoglobin 13.9 g/dL (13.0-16.5); Lymphocyte % 32.9 % (19-41); Mean Corp Hgb Conc 32.9 g/dL (32-36); Mean Corpuscular Hgb 31.1 pg (27.0-32.0); Mean Corpuscular Volume 94.4 fL (80-94); Mean Platelet Vol. 9.7 fl (6.2-12.0); Monocyte# 0.77 X10^3/uL; Monocyte% 18.1 % (0-10); NRBC Flagged by Analyzer 0 % (0-5); Neutrophil # 1.88 X10^3/uL (2.7-7.7); Neutrophil % 44.1 % (47-70); Platelet Count 180 K/mm3 (150-450); RBC Distribution Width CV 14.9 % (11.6-14.6); RBC Distribution Width SD 51.4 fl (35.1-43.9); Red Blood Count 4.47 M/mm3 (4.6-6.2); White Blood Count 4.3 K/mm3 (4.4-11.0)
[2024-01-16 13:34] LABS: ALB/GLOB Ratio 1.4 RATIO (0.9-2.4); AST(SGOT) 22 U/L (15-37); Alanine Aminotransfer ALT/SGPT 28 U/L (16-61); Albumin, Serum 4.1 g/dL (3.2-5.0); Alkaline Phosphatase 112 U/L (45-117); Anion Gap 6 (5-15); BUN 14 mg/dL (7-18); BUN/Creat Ratio 16.6 RATIO (10-20); Calcium,Total 9.2 mg/dL (8.5-10.1); Chloride 103 mmol/L (98-107); Creatinine, Serum 0.84 mg/dL (0.70-1.30); EST Glomerular Filtration Rate 94 mL/min (>60); Est Glom Filt Rate - Afr Amer 114 mL/min (>60); Globulin 2.9 g/dL (2.2-4.2); Glucose 146 mg/dL (74-106); Potassium 3.9 mmol/L (3.5-5.1); Sodium Level 136 mmol/L (136-145)
== END | disposition home or self-care (01) ==
PROVIDERS: PCP Internal Medicine; Referring Provider Internal Medicine Rheumatology; Visit Provider Internal Medicine Rheumatology
DX: M05.79 Rheumatoid arthritis with rheumatoid factor of multiple sites without organ or systems involvement (principal); Z79.899 Other long term (current) drug therapy
CPT/HCPCS: 36415; 72170; 80053; 85025

== ENCOUNTER → 2024-04-09 | Outpatient (CLI) | payer MEDICARE, OTHER, SELFPAY ==
[2024-04-09 15:54] LABS: Absolute Lymphocyte Count 1.55 X10^3/uL (0.83-4.51); Absolute Neutrophil Count 1.6 X10^3/uL (2.0-7.7); Basophil# 0.06 X10^3/uL; Basophil% 1.5 % (0-1); Eosinophil# 0.07 X10^3/uL; Eosinophils% 1.8 % (0-5); Hematocrit 44.5 % (40-54); Hemoglobin 14.6 g/dL (13.0-16.5); Lymphocyte # 1.55 X10^3/ul (0.83-4.51); Lymphocyte % 38.9 % (19-41); Mean Corp Hgb Conc 32.8 g/dL (32-36); Mean Corpuscular Hgb 29.5 pg (27.0-32.0); Mean Corpuscular Volume 89.9 fL (80-94); Mean Platelet Vol. 9.4 fl (6.2-12.0); Monocyte# 0.73 X10^3/uL; Monocyte% 18.3 % (0-10); NRBC Flagged by Analyzer 0 % (0-5); Neutrophil # 1.55 X10^3/uL (2.7-7.7); Platelet Count 216 K/mm3 (150-450); RBC Distribution Width CV 14.6 % (11.6-14.6); RBC Distribution Width SD 48.3 fl (35.1-43.9); Red Blood Count 4.95 M/mm3 (4.6-6.2)
[2024-04-09 16:29] LABS: ALB/GLOB Ratio 1.2 RATIO (0.9-2.4); AST(SGOT) 19 U/L (15-37); Alanine Aminotransfer ALT/SGPT 23 U/L (16-61); Albumin, Serum 4.1 g/dL (3.2-5.0); Alkaline Phosphatase 126 U/L (45-117); Anion Gap 5 (5-15); BUN 11 mg/dL (7-18); BUN/Creat Ratio 12.2 RATIO (10-20); Calcium,Total 9.4 mg/dL (8.5-10.1); Chloride 99 mmol/L (98-107); EST Glomerular Filtration Rate 88 mL/min (>60); Est Glom Filt Rate - Afr Amer 106 mL/min (>60); Globulin 3.3 g/dL (2.2-4.2); Glucose 152 mg/dL (74-106); Potassium 3.8 mmol/L (3.5-5.1); Protein, Total 7.4 g/dL (6.4-8.2); Sodium Level 132 mmol/L (136-145)
== END | disposition home or self-care (01) ==
LOC: MTLAB 12:43
PROVIDERS: PCP Internal Medicine; Referring Provider Internal Medicine Rheumatology; Visit Provider Internal Medicine Rheumatology
DX: M05.79 Rheumatoid arthritis with rheumatoid factor of multiple sites without organ or systems involvement (principal); Z79.899 Other long term (current) drug therapy
CPT/HCPCS: 36415; 80053; 85025

== ENCOUNTER → 2024-06-25 | Outpatient (CLI) | payer MEDICARE, OTHER, SELFPAY ==
[2024-06-25 12:18] LABS: Absolute Lymphocyte Count 0.92 X10^3/uL (0.83-4.51); Absolute Neutrophil Count 2.7 X10^3/uL (2.0-7.7); Basophil# 0.03 X10^3/uL; Basophil% 0.7 % (0-1); Eosinophil# 0.06 X10^3/uL; Eosinophils% 1.4 % (0-5); Hematocrit 37.3 % (40-54); Hemoglobin 12.8 g/dL (13.0-16.5); Lymphocyte # 0.92 X10^3/ul (0.83-4.51); Lymphocyte % 22.2 % (19-41); Mean Corp Hgb Conc 34.3 g/dL (32-36); Mean Corpuscular Hgb 30.9 pg (27.0-32.0); Mean Corpuscular Volume 90.1 fL (80-94); Mean Platelet Vol. 9.6 fl (6.2-12.0); Monocyte# 0.41 X10^3/uL; Monocyte% 9.9 % (0-10); NRBC Flagged by Analyzer 0 % (0-5); Neutrophil # 2.71 X10^3/uL (2.7-7.7); Neutrophil % 65.3 % (47-70); Platelet Count 181 K/mm3 (150-450); RBC Distribution Width CV 16.7 % (11.6-14.6); RBC Distribution Width SD 55.2 fl (35.1-43.9); Red Blood Count 4.14 M/mm3 (4.6-6.2); White Blood Count 4.2 K/mm3 (4.4-11.0)
[2024-06-25 12:32] LABS: ALB/GLOB Ratio 1.8 RATIO (0.9-2.4); AST(SGOT) 22 U/L (<=37); Alanine Aminotransfer ALT/SGPT 19 U/L (<=46); Albumin, Serum 4.3 g/dL (3.4-4.8); Alkaline Phosphatase 125 U/L (40-129); Anion Gap 12 (5-15); BUN 16 mg/dL (4-19); BUN/Creat Ratio 20.2 RATIO (10-20); Calcium,Total 9.5 mg/dL (7.6-11.0); Carbon Dioxide 23.1 mmol/L (21.0-32.0); Chloride 98 mmol/L (98-108); Creatinine, Serum 0.81 mg/dL (0.70-1.20); EST Glomerular Filtration Rate 93 (>60); Globulin 2.4 g/dL (2.2-4.2); Glucose 148 mg/dL (70-99); Potassium 4.9 mmol/L (3.3-5.1); Protein, Total 6.7 g/dL (5.9-8.4); Sodium Level 133 mmol/L (133-145)
== END | disposition home or self-care (01) ==
LOC: MTLAB 10:07
PROVIDERS: PCP Internal Medicine; Referring Provider Internal Medicine Rheumatology; Visit Provider Internal Medicine Rheumatology
DX: M05.79 Rheumatoid arthritis with rheumatoid factor of multiple sites without organ or systems involvement (principal); Z79.899 Other long term (current) drug therapy
CPT/HCPCS: 36415; 80053; 85025

== ENCOUNTER → 2024-09-18 | Outpatient (CLI) | payer MEDICARE, OTHER, SELFPAY ==
[2024-09-18 15:55] LABS: Absolute Lymphocyte Count 2.02 X10^3/uL (0.83-4.51); Absolute Neutrophil Count 1.4 X10^3/uL (2.0-7.7); Basophil# 0.04 X10^3/uL; Eosinophil# 0.04 X10^3/uL; Hematocrit 38.5 % (40-54); Hemoglobin 13.3 g/dL (13.0-16.5); Lymphocyte # 2.02 X10^3/ul (0.83-4.51); Lymphocyte % 49.1 % (19-41); Mean Corp Hgb Conc 34.5 g/dL (32-36); Mean Corpuscular Volume 89.7 fL (80-94); Mean Platelet Vol. 9.7 fl (6.2-12.0); Monocyte% 14.6 % (0-10); NRBC Flagged by Analyzer 0 % (0-5); Neutrophil % 34.1 % (47-70); Platelet Count 169 K/mm3 (150-450); RBC Distribution Width CV 15.2 % (11.6-14.6); RBC Distribution Width SD 49.5 fl (35.1-43.9); Red Blood Count 4.29 M/mm3 (4.6-6.2); White Blood Count 4.1 K/mm3 (4.4-11.0)
[2024-09-18 16:04] LABS: ALB/GLOB Ratio 2.2 RATIO (0.9-2.4); AST(SGOT) 26 U/L (<=37); Alanine Aminotransfer ALT/SGPT 19 U/L (<=46); Albumin, Serum 4.4 g/dL (3.4-4.8); Alkaline Phosphatase 119 U/L (40-129); Anion Gap 12 (5-15); BUN 13 mg/dL (4-19); BUN/Creat Ratio 17.9 RATIO (10-20); Calcium,Total 9.4 mg/dL (7.6-11.0); Carbon Dioxide 23.7 mmol/L (21.0-32.0); Chloride 100 mmol/L (98-108); Creatinine, Serum 0.72 mg/dL (0.70-1.20); EST Glomerular Filtration Rate 96 (>60); Glucose 99 mg/dL (70-99); Potassium 4.1 mmol/L (3.3-5.1); Protein, Total 6.4 g/dL (5.9-8.4); Sodium Level 136 mmol/L (133-145); Total Bilirubin 0.52 mg/dL (0.00-1.30)
== END | disposition home or self-care (01) ==
LOC: MTLAB 12:50
PROVIDERS: PCP Internal Medicine; Referring Provider Internal Medicine Rheumatology; Visit Provider Internal Medicine Rheumatology
DX: M05.79 Rheumatoid arthritis with rheumatoid factor of multiple sites without organ or systems involvement (principal); Z79.899 Other long term (current) drug therapy
CPT/HCPCS: 36415; 80053; 85025

== ENCOUNTER → 2024-12-04 | Outpatient (CLI) | payer MEDICARE, OTHER, SELFPAY ==
[2024-12-04 13:12] LABS: Hematocrit 36.0 % (40-54); Hemoglobin 12.6 g/dL (13.0-16.5); Immature Granulocytes Count 0.010 X10^3/uL (0.0-0.0); Mean Corp Hgb Conc 35.0 g/dL (32-36); Mean Corpuscular Volume 92.1 fL (80-94); Mean Platelet Vol. 9.3 fl (6.2-12.0); NRBC Flagged by Analyzer 0 % (0-5); POSITIVE DIFFERENTIAL YES; Platelet Count 139 K/mm3 (150-450); RBC Distribution Width CV 16.1 % (11.6-14.6); RBC Distribution Width SD 54.4 fl (35.1-43.9); Red Blood Count 3.91 M/mm3 (4.6-6.2); White Blood Count 3.0 K/mm3 (4.4-11.0)
[2024-12-04 13:25] LABS: Differential Indicated SCAN CRITERIA MET
[2024-12-04 14:04] LABS: Reactive Lymphocyte 2+
[2024-12-04 15:22] LABS: AST(SGOT) 29 U/L (<=37); Alanine Aminotransfer ALT/SGPT 19 U/L (<=46); Albumin, Serum 4.6 g/dL (3.4-4.8); Alkaline Phosphatase 116 U/L (40-129); Anion Gap 16 (5-15); BUN 12 mg/dL (4-19); BUN/Creat Ratio 15.7 RATIO (10-20); Calcium,Total 9.3 mg/dL (7.6-11.0); Carbon Dioxide 20.5 mmol/L (21.0-32.0); Chloride 98 mmol/L (98-108); Globulin 2.0 g/dL (2.2-4.2); Glucose 150 mg/dL (70-99); Potassium 4.2 mmol/L (3.3-5.1)
== END | disposition home or self-care (01) ==
LOC: MTLAB 09:39
PROVIDERS: PCP Internal Medicine; Referring Provider Internal Medicine Rheumatology; Visit Provider Internal Medicine Rheumatology
DX: M05.79 Rheumatoid arthritis with rheumatoid factor of multiple sites without organ or systems involvement (principal); Z79.899 Other long term (current) drug therapy
CPT/HCPCS: 36415; 80053; 85025

== ENCOUNTER → 2025-01-02 | Outpatient (CLI) | payer MEDICARE, OTHER, SELFPAY ==
[2025-01-02 15:07] LABS: Hematocrit 34.7 % (40-54); Hemoglobin 11.9 g/dL (13.0-16.5); Immature Granulocytes Count 0.020 X10^3/uL (0.0-0.0); Mean Corp Hgb Conc 34.3 g/dL (32-36); Mean Corpuscular Volume 92.0 fL (80-94); Mean Platelet Vol. 9.4 fl (6.2-12.0); NRBC Flagged by Analyzer 0 % (0-5); POSITIVE DIFFERENTIAL YES; Platelet Count 158 K/mm3 (150-450); RBC Distribution Width CV 16.5 % (11.6-14.6); RBC Distribution Width SD 55.2 fl (35.1-43.9); Red Blood Count 3.77 M/mm3 (4.6-6.2); White Blood Count 3.6 K/mm3 (4.4-11.0)
[2025-01-02 15:20] LABS: AST(SGOT) 26 U/L (<=37); Alanine Aminotransfer ALT/SGPT 17 U/L (<=46); Albumin, Serum 4.5 g/dL (3.4-4.8); Alkaline Phosphatase 111 U/L (40-129); Anion Gap 12 (5-15); BUN 15 mg/dL (4-19); BUN/Creat Ratio 19.3 RATIO (10-20); Calcium,Total 9.3 mg/dL (7.6-11.0); Carbon Dioxide 24.3 mmol/L (21.0-32.0); Chloride 101 mmol/L (98-108); Globulin 1.8 g/dL (2.2-4.2); Glucose 161 mg/dL (70-99); Potassium 4.1 mmol/L (3.3-5.1)
[2025-01-02 15:21] LABS: Differential Indicated SCAN CRITERIA MET
[2025-01-02 16:23] LABS: Differential Comment SCANNED
== END | disposition home or self-care (01) ==
PROVIDERS: PCP Internal Medicine; Referring Provider Internal Medicine Rheumatology; Visit Provider Internal Medicine Rheumatology
DX: M05.79 Rheumatoid arthritis with rheumatoid factor of multiple sites without organ or systems involvement (principal); Z79.899 Other long term (current) drug therapy
CPT/HCPCS: 36415; 80053; 85025